=== PATIENT | male | born 1965 | race Caucasian/White ===

== ENCOUNTER 2017-03-10 08:37 | Emergency (ER) | payer OTHER ==
[~2017-03-10] VITALS: Ht 180.3 cm; Wt 63.5 kg
[~2017-03-10 08:37] MED LIST: PROZ10CA7 PO; no home meds
[2017-03-10] MEDS ORDERED: CYCL10TA (09:01)
[2017-03-10] MEDS ORDERED: NAPR500T2 (09:01)
[2017-03-10] MEDS ORDERED: ROBA500T PO (10:18)
[2017-03-10] MEDS ORDERED: IBUP80TA PO (10:18)
[2017-03-10] MEDS ORDERED: NORCOTAB PO (10:18)
[2017-03-10 10:22] VITALS: BP 113/68
== END 2017-03-10 10:31 | disposition home or self-care (01) ==
LOC: M ED 09:46
DX: M54.41 Lumbago with sciatica, right side (principal); G89.11 Acute pain due to trauma; F32.9 Major depressive disorder, single episode, unspecified; R51 Headache; M19.90 Unspecified osteoarthritis, unspecified site; Z88.1 Allergy status to other antibiotic agents; Z88.8 Allergy status to other drugs, medicaments and biological substances

== ENCOUNTER 2017-12-15 11:23 | Emergency (ER) | payer OTHER ==
[2017-12-15 12:33] LABS: HEMATOCRIT 47.2 % (42.0-52.0); HEMOGLOBIN 16.2 g/dl (14.0-18.0); MEAN CORPUSCULAR HEMOGLOBIN 32.4 pg (27.0-33.0); MEAN CORPUSCULAR HGB CONC 34.3 g/dl (32.0-36.5); MEAN CORPUSCULAR VOLUME 94.4 fl (80.0-96.0); PLATELET COUNT, AUTOMATED 132 10^3/uL (150-450); WHITE BLOOD COUNT 8.7 10^3/uL (4.0-10.0)
[2017-12-15 12:42] LABS: ANION GAP 5 MEQ/L (8-16); BLOOD UREA NITROGEN 8 MG/DL (7-18); CARBON DIOXIDE LEVEL 28 MEQ/L (21-32); CHLORIDE LEVEL 106 MEQ/L (98-107); CREATININE FOR GFR 0.84 MG/DL (0.70-1.30); GLOMERULAR FILTRATION RATE > 60.0 (>56); GLUCOSE, FASTING 93 MG/DL (70-100); POTASSIUM SERUM 4.4 MEQ/L (3.5-5.1); SODIUM LEVEL 139 MEQ/L (136-145)
[2017-12-15] MEDS: KETOROLAC 30 MG/ML VIAL (J1885) IV (12:45)
== END 2017-12-15 15:52 | disposition home or self-care (01) ==
LOC: M ED 11:23
DX: S86.811A Strain of other muscle(s) and tendon(s) at lower leg level, right leg, initial encounter (principal); X58.XXXA Exposure to other specified factors, initial encounter; Y92.89 Other specified places as the place of occurrence of the external cause; J45.909 Unspecified asthma, uncomplicated; F17.210 Nicotine dependence, cigarettes, uncomplicated; Z88.0 Allergy status to penicillin; Z88.1 Allergy status to other antibiotic agents
CPT/HCPCS: J1885

== ENCOUNTER → 2018-01-11 | Outpatient (REF) | payer OTHER, MEDICAID ==
[2018-01-11 13:50] LABS: TOTAL 25(OH) VITAMIN D 12.8 NG/ML (30.0-100.0)
[2018-01-11 13:54] LABS: FREE T4 0.97 NG/DL (0.76-1.46)
[2018-01-11 14:30] LABS: HIV 1&2 SCREEN CENTAUR NEGATIVE (NEGATIVE)
[2018-01-15 00:06] LABS: HCV RNA NAA QUALITATIVE Negative (Negative)
== END ==
LOC: M SFHCPLAZ 11:16
DX: Z13.29 Encounter for screening for other suspected endocrine disorder (principal); Z12.5 Encounter for screening for malignant neoplasm of prostate; Z11.59 Encounter for screening for other viral diseases; Z11.4 Encounter for screening for human immunodeficiency virus [HIV]; Z13.21 Encounter for screening for nutritional disorder

== ENCOUNTER 2018-01-23 10:04 | Outpatient (RCR) | payer OTHER | END 2018-02-09 | LOC: M PT 10:04 | DX: Z51.89 Encounter for other specified aftercare (principal); M76.32 Iliotibial band syndrome, left leg ==

== ENCOUNTER 2018-05-07 20:28 | Emergency (ER) | payer OTHER, MEDICAID ==
[2018-05-07] MEDS ORDERED: CLINDAMYCIN 150 MG CAP PO (21:45)
[2018-05-07] MEDS: IBUPROFEN 600 MG TAB PO (21:52)
[2018-05-07] MEDS: predniSONE 20 MG TAB PO (21:52)
== END 2018-05-07 22:13 | disposition home or self-care (01) ==
LOC: M ED 20:28
DX: L03.012 Cellulitis of left finger (principal); G43.909 Migraine, unspecified, not intractable, without status migrainosus; M54.9 Dorsalgia, unspecified; F17.200 Nicotine dependence, unspecified, uncomplicated; Z88.0 Allergy status to penicillin; Z88.1 Allergy status to other antibiotic agents
CPT/HCPCS: 99283

== ENCOUNTER → 2018-11-22 | Outpatient (REF) | payer MEDICAID, OTHER ==
[~2018-11-22] MED LIST changes: +CYCL10TA; +IBUP80TA PO; +NAPR-50 PO; +NAPR-885; +NORCOTAB PO; +PRED20TA PO; +ROBA500T PO; +ROLLMIS2 XX; +SOMA350T PO
[2018-11-22 14:54] LABS: HIV 1&2 SCREEN CENTAUR NEGATIVE (NEGATIVE); TOTAL 25(OH) VITAMIN D 25.5 NG/ML (30.0-100.0)
== END ==
LOC: M SFHCPLAZ 10:54
PROVIDERS: ATTEND Family Medicine
DX: Z11.4 Encounter for screening for human immunodeficiency virus [HIV] (principal); Z13.21 Encounter for screening for nutritional disorder

== ENCOUNTER → 2019-04-21 | Outpatient (CLI) | payer OTHER ==
[~2019-04-21] MED LIST changes: +HYDR-3715 PO; -NAPR-50 PO; +NAPR-837 PO; -NORCOTAB PO
--- NOTE | 2019-04-21 13:15 | REP ---
ABDOMINAL SERIES: Supine and erect views of the abdomen demonstrate no free air and no evidence for bowel obstruction. No significantly dilated bowel loops are seen. Vascular calcifications and a small phlebolith are again seen in the right pelvis. There are mild degenerative changes of the spine. IMPRESSION: No acute abnormalities. Electronically Signed by Jerzy Morris MD 04/22/2019 11:35 A
== END ==
LOC: M RAD 12:36
PROVIDERS: ATTEND Physician Assistant
DX: R10.9 Unspecified abdominal pain (principal)

== ENCOUNTER → 2019-10-03 | Outpatient (CLI) | payer OTHER ==
[2019-10-03 12:39] LABS: BASO % 0.7 % (0.0-1.0); EOS # 0.2 10^3/uL (0.0-0.5); EOS % 3.5 % (0.0-3.0); HEMATOCRIT 43.7 % (42.0-52.0); HEMOGLOBIN 14.5 g/dl (13.5-17.5); LYMPH # 2.3 10^3/uL (1.5-5.0); LYMPH % 40.1 % (24.0-44.0); MEAN CORPUSCULAR HEMOGLOBIN 31.5 pg (27.0-33.0); MEAN CORPUSCULAR HGB CONC 33.2 g/dl (32.0-36.5); MEAN CORPUSCULAR VOLUME 94.8 fl (80.0-96.0); MONO # 0.5 10^3/uL (0.0-0.8); MONO % 9.3 % (0.0-5.0); NEUTROPHILS # 2.6 10^3/uL (1.5-8.5); NEUTROPHILS % 46.2 % (36.0-66.0); PLATELET COUNT, AUTOMATED 125 10^3/uL (150-450); RED BLOOD COUNT 4.61 10^6/uL (4.30-6.10); WHITE BLOOD COUNT 5.7 10^3/uL (4.0-10.0)
[2019-10-03 13:12] LABS: ALT/SGPT 28 U/L (12-78); BILIRUBIN,TOTAL 0.4 MG/DL (0.2-1.0); BLOOD UREA NITROGEN 11 MG/DL (7-18); CALCIUM LEVEL 9.7 MG/DL (8.5-10.1); CARBON DIOXIDE LEVEL 31 MEQ/L (21-32); CHLORIDE LEVEL 105 MEQ/L (98-107); CHOLESTEROL LEVEL 258 MG/DL (<200); CHOLESTEROL RISK RATIO 4.607 (<5); CREATININE FOR GFR 0.94 MG/DL (0.70-1.30); FREE T4 1.03 NG/DL (0.76-1.46); GLOMERULAR FILTRATION RATE > 60.0 (>56); GLUCOSE, FASTING 94 MG/DL (70-100); HDL CHOLESTEROL 56 MG/DL (>40); LDL CHOLESTEROL 173 MG/DL (<100); NON-HDL-C 202 MG/DL; POTASSIUM SERUM 4.7 MEQ/L (3.5-5.1); SODIUM LEVEL 140 MEQ/L (136-145); TOTAL PROTEIN 6.9 GM/DL (6.4-8.2); TRIGLYCERIDES LEVEL 146 MG/DL (<150)
[2019-10-03 13:53] LABS: HIV 1&2 SCREEN CENTAUR NEGATIVE (NEGATIVE)
== END ==
LOC: M WUC 10:12
PROVIDERS: ATTEND Internal Medicine
DX: Z00.00 Encounter for general adult medical examination without abnormal findings (principal)

== ENCOUNTER → 2019-12-12 | Outpatient (REF) | payer OTHER ==
[2019-12-12 15:51] LABS: BASO % 0.5 % (0.0-1.0); EOS # 0.1 10^3/uL (0.0-0.5); EOS % 2.2 % (0.0-3.0); HEMATOCRIT 43.5 % (42.0-52.0); HEMOGLOBIN 14.5 g/dl (13.5-17.5); LYMPH # 2.1 10^3/uL (1.5-5.0); LYMPH % 33.1 % (24.0-44.0); MEAN CORPUSCULAR HEMOGLOBIN 30.7 pg (27.0-33.0); MEAN CORPUSCULAR HGB CONC 33.3 g/dl (32.0-36.5); MEAN CORPUSCULAR VOLUME 92.2 fl (80.0-96.0); MONO # 0.5 10^3/uL (0.0-0.8); MONO % 7.8 % (0.0-5.0); NEUTROPHILS # 3.5 10^3/uL (1.5-8.5); NEUTROPHILS % 55.9 % (36.0-66.0); PLATELET COUNT, AUTOMATED 130 10^3/uL (150-450); RED BLOOD COUNT 4.72 10^6/uL (4.30-6.10); WHITE BLOOD COUNT 6.3 10^3/uL (4.0-10.0)
[2019-12-16 00:06] LABS: ANTINUCLEAR ANTIBODIES DIRECT Negative (Negative)
== END ==
LOC: M SFHCPLAZ 14:09
DX: Z87.898 Personal history of other specified conditions (principal); M25.511 Pain in right shoulder

== ENCOUNTER → 2019-12-31 | Outpatient (REF) | payer OTHER ==
[2019-12-31 13:36] LABS: INFLUENZA A AMPLIFICATION NEGATIVE (NEGATIVE); INFLUENZA B AMPLIFICATION NEGATIVE (NEGATIVE)
== END ==
LOC: M LAB REF 12:30
PROVIDERS: ATTEND Physician Assistant
DX: J11.1 Influenza due to unidentified influenza virus with other respiratory manifestations (principal)

== ENCOUNTER 2020-08-25 13:43 | Emergency (ER) | payer OTHER ==
[~2020-08-25] VITALS: Ht 180.3 cm; Wt 76.5 kg
[~2020-08-25 13:43] MED LIST changes: +CYCL-707; -CYCL10TA
[2020-08-25 13:44] VITALS: BP 152/81
== END 2020-08-25 14:33 | disposition home or self-care (01) ==
LOC: M ED 13:43
DX: K08.89 Other specified disorders of teeth and supporting structures (principal); S01.512A Laceration without foreign body of oral cavity, initial encounter; W22.8XXA Striking against or struck by other objects, initial encounter; Y92.512 Supermarket, store or market as the place of occurrence of the external cause; K02.9 Dental caries, unspecified; Z88.0 Allergy status to penicillin; Z88.1 Allergy status to other antibiotic agents

== ENCOUNTER → 2021-02-18 | Outpatient (CLI) | payer OTHER ==
[2021-02-18 11:23] LABS: HEMOGLOBIN A1c 5.2 %
[2021-02-18 11:31] LABS: ALT/SGPT 28 U/L (12-78); BILIRUBIN,TOTAL 0.5 MG/DL (0.2-1.0); BLOOD UREA NITROGEN 12 MG/DL (7-18); CALCIUM LEVEL 9.1 MG/DL (8.5-10.1); CARBON DIOXIDE LEVEL 29 MEQ/L (21-32); CHLORIDE LEVEL 107 MEQ/L (98-107); CHOLESTEROL LEVEL 233 MG/DL (<200); CHOLESTEROL RISK RATIO 4.314 (<5); CREATININE FOR GFR 0.85 MG/DL (0.70-1.30); GLOMERULAR FILTRATION RATE > 60.0 (>56); GLUCOSE, FASTING 97 MG/DL (70-100); HDL CHOLESTEROL 54 MG/DL (>40); LDL CHOLESTEROL 154 MG/DL (<100); NON-HDL-C 179 MG/DL; POTASSIUM SERUM 4.2 MEQ/L (3.5-5.1); SODIUM LEVEL 140 MEQ/L (136-145); TOTAL PROTEIN 6.8 GM/DL (6.4-8.2); TRIGLYCERIDES LEVEL 125 MG/DL (<150)
[2021-02-19 20:07] LABS: TESTOSTERONE FREE (DIRECT) 11.8 pg/mL (7.2-24.0)
== END ==
LOC: M WUC 09:17
PROVIDERS: ATTEND Internal Medicine
DX: Z00.00 Encounter for general adult medical examination without abnormal findings (principal); R79.89 Other specified abnormal findings of blood chemistry

== ENCOUNTER → 2021-03-11 | Outpatient (REF) | payer OTHER | LOC: M LAB REF 15:00 | PROVIDERS: ATTEND Physician Assistant | DX: R21 Rash and other nonspecific skin eruption (principal) ==

== ENCOUNTER → 2021-04-26 | Outpatient (CLI) | payer OTHER ==
--- NOTE | 2021-04-27 02:20 | REPPI ---
INDICATION: OSTEOARTHRITIS OF RIGHT SHOULDER COMPARISON: None. TECHNIQUE: Internal rotation, external rotation, and Y view. FINDINGS: Glenoid rim demonstrates subtle increased sclerosis with mild blunting primarily noted along the inferior rim. There is associated cortical irregularity involving the humeral head with suggestions for small inferior loose body. The subacromial space is normal. The acromioclavicular joint demonstrates minimal cortical irregularity and very early spurring. IMPRESSION: Moderate osteoarthritic degenerative changes primarily involving the glenohumeral joint. <Electronically signed by Mynor Schmitz > 04/27/21 3020
== END ==
LOC: M PLAIMG 12:45
PROVIDERS: ATTEND Internal Medicine
DX: M19.011 Primary osteoarthritis, right shoulder (principal)

== ENCOUNTER → 2021-07-13 | Outpatient (REF) | payer OTHER ==
[~2021-07-13] MED LIST changes: +KETO10TAB PO
== END ==
LOC: M SMT 17:44
PROVIDERS: ATTEND Urology
DX: N50.9 Disorder of male genital organs, unspecified (principal)

== ENCOUNTER 2021-08-26 11:44 | Emergency (ER) | payer OTHER ==
[~2021-08-26] VITALS: Ht 180.3 cm; Wt 74.8 kg
[~2021-08-26 11:44] MED LIST changes: -KETO10TAB PO
--- OUTSIDE RECORDS SUMMARY | 2021-08-26 11:51 | CCD ---
Author Author [facility] Organization [facility] Address Unknown Phone Unavailable Care Team Providers Care Railcar Brake Operator Name Role Phone Omar Montes De Oca Unavailable PROBLEMS Type Condition ICD9-CM Code [id number] Code Onset Dates Condition S tatus W/U Status Risk SNOMED Code Notes Problem Cigarette nicotine dependence with nicotine-induced di sorder F17.219 Active confirmed 42408019 Problem Adjustment disorder with anxiety F43.22 Active conf irmed 09630583 Problem Major depressive disorder, single episode, unspecified F32.9 Active confirmed 33273394 Problem Cigarette nicotine dependence without complication F17.210 Active confirmed 86648670 Problem Adjustment disorder, unspecified type F43.20 Ac tive confirmed 85972721 Problem Cigarette nicotine dependence with withdrawal F17. 213 Active confirmed 53761923 Problem Vitamin D deficiency E55.9 Active confirmed 30621605 Problem Current moderate episode of major depressive disorder, unspecified whether recurrent F32.1 Active confirmed 43119026 Problem Other chronic pain G89.29 Active confirmed 8 2310191 Problem Erectile dysfunction, unspecified erectile dysfunction typ e N52.9 Active confirmed 402465031 Problem Atopic dermatitis and related condition L20.9 Active confirmed 14944466 Problem Generalized anxiety disorder F41.1 Active confirme d 14929818 Problem Scrotal lesion N50.9 Active confirmed 53869 000 Problem Adjustment disorder with anxious mood F43.22 Ac tive confirmed 99161722 Problem Mood disorder F39 Active confirmed 156872 05 Problem Bipolar I disorder with depression F31.9 Activ e confirmed 98431644 Problem Primary osteoarthritis, 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 Ac tive confirmed 054522571112672 Problem Primary osteoarthritis, right shoulder M19.011 A ctive confirmed [id number] ALLERGIES Allergen (clinical drug ingredient) Drug/Non Drug Allergy do cumented on EMR Reaction Allergy Type Onset Date Status Levaquin Confusion Drug Allergy Active Vicodin over dosed on before Drug Allergy Ac tive amoxicillin Amoxicillin([facility] Code:[address]-09) Nausea/Vomiting Drug Allergy Active ENCOUNTERS from 1965 to 2021-07-15 Encounter Location Date Provider Diagnosis [facility] Urology [address] [phone] [place] [address] Jul, Omar Montes De Oca Scrotal lesion N50.9 IMMUNIZATIONS Vaccine Route Administration Date Status TDAP 0.5mL (Boostrix) IM Intramuscular Nov 22, 2018 Administe red SOCIAL HISTORY Tobacco Use: Social History Observation Description Date Details (start date - stop date) Former Smoker Sex Assigned At : Social History Observation Description Sex Assigned At Unknown Education: Question Answer Notes Level of Education: High School Audit Question Answer Notes Total Score: 0 Interpretation: Alcohol Education Language: Question Answer Notes Languages spoken: Tajik Sabianism: Question Answer Notes Sabianism No zoroastrian beliefs that would impact health care. Sexual Hx: Question Answer Notes Had sex in the last 12 months (vaginal, oral, or anal)? No Have you ever had an STD? No Drug and Alcohol Question Answer Notes Total Score: 0 Interpretation: No problems reported Alcohol Screening: Question Answer Notes Did you have a drink containing alcohol in the past year? No Points 0 Interpretation Negative Tobacco Use: Question Answer Notes Are you a: former smoker How long has it been since you last smoked? 1-5 years REASON FOR REFERRAL No Information VITAL SIGNS Weight 167 lbs Jul, Weight-kg 75.75 kg Jul, Height 71 in Jul, BMI 23.29 kg/m2 Jul, Heart Rate 75 /min Jul, Respiratory Rate 18 /min Jul, Temperature 96.9 degrees Fahrenheit Jul, Oximetry 100 Jul, Blood pressure systolic 142 mm Hg Jul, Blood pressure diastolic 78 mm Hg Jul, MEDICATIONS Medication SIG (Take, Route, Frequency, Duration) Notes Start Da te End Date Status Multivitamin Adult - as directed Orally Once a day for 90 day(s) Not-Taking Betamethasone Dipropionate 0.05 % 1 application Flight Service Specialist ally Once a day for 30 days March, Not-Taking Meloxicam 15 MG 1 tablet Orally Once a day a s needed for shoulder pain for 7 day(s) March, Not-Taking Betamethasone Dipropionate 0.05 % 1 application Flight Service Specialist ally Mix entire 50g tube into 1/2 jar of CeraVe cream, Apply twice daily for 14 days 30 A , 2020 Not-Taking PROCEDURES from 1965 to 2021-07-15 Procedure Date Ordered Result Body Site Medication: Bupivacaine 0.25% Dilutent 30ml (Marcaine) 1 N/A Medication: 2% Lidocaine Dilutent 2021-07-13 N/A RESULTS No Results REASON FOR VISIT scrotal cyst MEDICAL (GENERAL) HISTORY Type Description Date Medical History Major depressive disorder Medical History Schizoaffective disorder Medical History History of opioid abuse Medical History Bilateral shoulder OA Medical History Eczematous dermatitis of skin (follows w [facility] dermatology) Surgical History R knee surgery orthoscopoc Surgical History L wrist tendon repair Surgical History R inguinal hernia repair 2017 Goals Section No Information Health Concerns No Information MEDICAL EQUIPMENT No Information MENTAL STATUS No Information FUNCTIONAL STATUS No Information ASSESSMENTS Encounter Date Diagnosis Assessment Notes Treatment Notes Treatm ent Clinical Notes Jul, Scrotal lesion (ICD-10 - N50.9) PLAN OF TREATMENT Treatment Notes Test Name Order Date Pathology Request For Service (Urology Only) 1 Next Appt Details 3-4 wks Reason:wound check Provider Name:Brandy Neri, 2021-07-14 9 01:45:00 PM, [address], , [place], [address], Follow Up:3-4 wkswound check Insurance Providers Payer Name Payer Address Payer Phone Insured Name Patient Relati onship to Insured Coverage Start Date Coverage End Date [facility] COMMUNITY PLAN [facility] [address] [facility] [phone] TRIN[employer] MEJIA self
--- OUTSIDE RECORDS SUMMARY | 2021-08-26 11:51 | CCD ---
Author Author [facility] Organization [facility] Address Unknown Phone Unavailable Care Team Providers Care Administrative Intern Name Role Phone Domingo Barba Unavailable PROBLEMS Type Condition ICD9-CM Code [id number] Code Onset Dates Condition S tatus W/U Status Risk SNOMED Code Notes Problem Major depressive disorder, single episode, unspecified F32.9 Active confirmed 04313032 Problem Cigarette nicotine dependence with nicotine-induced di sorder F17.219 Active confirmed 73685785 Problem Adjustment disorder, unspecified type F43.20 Ac tive confirmed 12028773 Problem Adjustment disorder with anxiety F43.22 Active conf irmed 09604743 Problem Vitamin D deficiency E55.9 Active confirmed 01065386 Problem Cigarette nicotine dependence without complication F17.210 Active confirmed 05644007 Problem Cigarette nicotine dependence with withdrawal F17. 213 Active confirmed 29713391 Problem Current moderate episode of major depressive disorder, unspecified whether recurrent F32.1 Active confirmed 56733419 Problem Other chronic pain G89.29 Active confirmed 8 3318115 Problem Primary osteoarthritis, right shoulder M19.011 A ctive confirmed 486282895376264 Problem Adjustment disorder with anxious mood F43.22 Ac tive confirmed 48258252 Problem Atopic dermatitis and related condition L20.9 Active confirmed 84616590 Problem Generalized anxiety disorder F41.1 Active confirme d 34585625 Problem Erectile dysfunction, unspecified erectile dysfunction typ e N52.9 Active confirmed 163898659 Problem Mood disorder F39 Active confirmed 126716 05 Problem Bipolar I disorder with depression F31.9 Activ e confirmed 96822121 Problem Primary osteoarthritis, 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 Ac tive confirmed [id number] ALLERGIES Allergen (clinical drug ingredient) Drug/Non Drug Allergy do cumented on EMR Reaction Allergy Type Onset Date Status Levaquin Confusion Drug Allergy Active Vicodin over dosed on before Drug Allergy Ac tive amoxicillin Amoxicillin([facility] Code:[address]-04) Nausea/Vomiting Drug Allergy Active ENCOUNTERS from 1965 to 2021-06-08 Encounter Location Date Provider Diagnosis [facility] Res[facility] [address] [phone] [place] [address] May, Domingo Barba Pain in right should er M25.511 ; Pain in left shoulder M25.512 and Discomfort of right groin R10.31 IMMUNIZATIONS Vaccine Route Administration Date Status TDAP 0.5mL (Boostrix) IM Intramuscular Nov 22, 2018 Administe red SOCIAL HISTORY Tobacco Use: Social History Observation Description Date Details (start date - stop date) Former Smoker Sex Assigned At : Social History Observation Description Sex Assigned At Unknown Education: Question Answer Notes Level of Education: High School Audit Question Answer Notes Interpretation: Alcohol Education Total Score: 0 Language: Question Answer Notes Languages spoken: Chadian Oriental Orthodox: Question Answer Notes Oriental Orthodox No spiritism beliefs that would impact health care. Sexual [...] FOR REFERRAL No Information VITAL SIGNS Weight 162.6 lbs May, Height 71 in May, BMI 22.68 kg/m2 May, Heart Rate 104 /min May, Respiratory Rate 18 /min May, Temperature 98.0 degrees Fahrenheit May, Oximetry 99 May, Blood pressure systolic 120 mm Hg May, Blood pressure diastolic 66 mm Hg May, MEDICATIONS Medication SIG (Take, Route, Frequency, Duration) Notes Start Da te End Date Status Betamethasone Dipropionate 0.05 % 1 application Inspector Line ally Once a day for 30 days March, Not-Taking Multivitamin Adult - as directed Orally Once a day for 90 day(s) Not-Taking Betamethasone Dipropionate 0.05 % 1 application Inspector Line ally Mix entire 50g tube into 1/2 jar of CeraVe cream, Apply twice daily for 14 days 30 A 2020 Not-Taking Meloxicam 15 MG 1 tablet Orally Once a day a s needed for shoulder pain for 7 day(s) March, Not-Taking PROCEDURES No Information RESULTS No Results REASON FOR VISIT 6 week follow up shoulder pain MEDICAL (GENERAL) HISTORY Type Description Date Medical History Major depressive disorder Medical History Schizoaffective disorder Medical History History of opioid abuse Medical History Bilateral shoulder OA Medical History Eczematous dermatitis of skin (follows w [facility] dermatology) Surgical History R knee surgery orthoscopoc Surgical History L wrist tendon repair Surgical History R inguinal hernia repair 2016 Goals Section No Information Health Concerns No Information MEDICAL EQUIPMENT No Information MENTAL STATUS No Information FUNCTIONAL STATUS No Information ASSESSMENTS Encounter Date Diagnosis Assessment Notes Treatment Notes Treatm ent Clinical Notes May, Pain in right shoulder (ICD-10 - M25.511) Pain resolved. ROM wnl May, Pain in left shoulder (ICD-10 - M25.512) Pain resolved. normal ROM May, Discomfort of right groin (ICD-10 - R10.31) Pt has a hx of a inguinal hernia on R side with Mesh placement. Pt states that he does not have any pain nausea, vomiting, fever, no hernia bulge that turns red or purple color. he's having regular BMs and able to pass faltus. He lifits 160Lbs at the gym and feels pressure in the inguinal region when he does. He is not bothered by it on a daily basis. No signs of strangulation on exam have discussed with patient the red flag symptoms of strangulation such as acute abdominal pain that comes on suddenly, nausea, vomiting, bloody stools, fever, inability to pass flatus. If any of those smyptoms or more to report to ER. PLAN OF TREATMENT Treatment Notes Assessment Notes Clinical Notes Pain in right shoulder Pain resolved. RO M wnl Pain in left shoulder Pain resolved. nor mal ROM Discomfort of right groin Pt has a hx of a inguinal hernia on R side with Mesh placement. Pt states that he does not have any pain nausea, vomiting, fever, no hernia bulge that turns red or purple color. he's having regular BMs and able to pass faltus. He lifits 160Lbs at the gym and feels pressure in the inguinal region when he does. He is not bothered by it on a daily basis. No signs of strangulation on examhave discussed with patient the red flag symptoms of strangulation such as acute abdominal pain that comes on suddenly, nausea, vomiting, bloody stools, fever, inability to pass flatus. If any of those smyptoms or more to report to ER. Next Appt Details 6 Months Reason: Provider Name:Brandy Neri, 2021-05-14 0 08:30:00 AM, [address], , [place], [address], Insurance Providers Payer Name Payer Address Payer Phone Insured Name Patient Relati onship to Insured Coverage Start Date Coverage End Date [facility] COMMUN[facility] PLAN [facility] [address] [facility] [address] TRINITY MEJIA self
--- OUTSIDE RECORDS SUMMARY | 2021-08-26 11:51 | CCD ---
Author Author [facility] [employer] [facility] Organization [facility] Address Unknown Phone Unavailable Care Team Providers Care [employer] Name Role Phone Brandy Neri Unavailable PROBLEMS Type Condition ICD9-CM Code EVK84-MR Code Onset Dates Condition S tatus W/U Status Risk SNOMED Code Notes Problem Major depressive disorder, single episode, unspecified F32.9 Active confirmed 56392520 Problem Cigarette nicotine dependence with nicotine-induced di sorder F17.219 Active confirmed 81360722 Problem Adjustment disorder, unspecified type F43.20 Ac tive confirmed 83372408 Problem Adjustment disorder with anxiety F43.22 Active conf irmed 14831035 Problem Vitamin D deficiency E55.9 Active confirmed 53109528 Problem Cigarette nicotine dependence without complication F17.210 Active confirmed 79072101 Problem Cigarette nicotine dependence with withdrawal F17. 213 Active confirmed 18957347 Problem Current moderate episode of major depressive disorder, unspecified whether recurrent F32.1 Active confirmed 65850364 Problem Other chronic pain G89.29 Active confirmed 8 0219347 Problem Primary osteoarthritis, right shoulder M19.011 A ctive confirmed 988660417643166 Problem Adjustment disorder with anxious mood F43.22 Ac tive confirmed 57166962 Problem Atopic dermatitis and related condition L20.9 Active confirmed 46686076 Problem Generalized anxiety disorder F41.1 Active confirme d 83298222 Problem Erectile dysfunction, unspecified erectile dysfunction typ e N52.9 Active confirmed 330511119 Problem Mood disorder F39 Active confirmed 665886 05 Problem Bipolar I disorder with depression F31.9 Activ e confirmed 46610469 Problem Primary osteoarthritis, 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 Ac tive confirmed 771456539028289 ALLERGIES Allergen (clinical drug ingredient) Drug/Non Drug Allergy do cumented on EMR Reaction Allergy Type Onset Date Status Levaquin Confusion Drug Allergy Active Vicodin over dosed on before Drug Allergy Ac tive amoxicillin Amoxicillin([facility] Code:[address]-98) Nausea/Vomiting Drug Allergy Active ENCOUNTERS from 1965 to 2021-06-13 Encounter Location Date Provider Diagnosis [facility] Urology [address] [phone] [place] [address] May, Brandy Neri Scrotal cyst L72.9 IMMUNIZATIONS Vaccine Route Administration Date Status TDAP [...] Education Language: Question Answer Notes Languages spoken: Italian Sabianist: Question Answer Notes Sabianist No mandaeism beliefs that would impact health care. Sexual [...] No Information VITAL SIGNS Weight 167 lbs May, Weight-kg 75.75 kg May, Height 71 in May, BMI 23.29 kg/m2 May, Heart Rate 71 /min May, Respiratory Rate 18 /min May, Temperature 96.8 degrees Fahrenheit May, Oximetry 100 May, Blood pressure systolic 133 mm Hg May, Blood pressure diastolic 82 mm Hg May, MEDICATIONS Medication SIG (Take, Route, Frequency, Duration) Notes Start Da te End Date Status Betamethasone Dipropionate 0.05 % 1 application Pe Electrical Engineer ally Once a day for 30 days March, Not-Taking Betamethasone Dipropionate 0.05 % 1 application Pe Electrical Engineer ally Mix entire 50g tube into 1/2 jar of CeraVe cream, Apply twice daily for 14 days 30 A 2020 Not-Taking Multivitamin Adult - as directed Orally Once a day for 90 day(s) Not-Taking Meloxicam 15 MG 1 tablet Orally Once a day a s needed for shoulder pain for 7 day(s) March, Not-Taking PROCEDURES No Information RESULTS No Results REASON FOR VISIT Pt has several areas of skin thickening on his scrotum, wishes to have MEDICAL (GENERAL) HISTORY Type Description Date Medical History Major depressive disorder Medical History Schizoaffective disorder Medical History History of opioid abuse Medical History Bilateral shoulder OA Medical History Eczematous dermatitis of skin (follows w [facility] dermatology) Surgical History R knee surgery orthoscopoc Surgical History L wrist tendon repair Surgical History R inguinal hernia repair 2017 Goals Section No Information Health Concerns No Information MEDICAL EQUIPMENT No Information MENTAL STATUS No Information FUNCTIONAL STATUS No Information ASSESSMENTS Encounter Date Diagnosis Assessment Notes Treatment Notes Treatm ent Clinical Notes May, Scrotal cyst (ICD-10 - L72.9) PLAN OF TREATMENT Next Appt Details Provider Name:Omar Montes De Oca, 08:15:00 AM, [address], , [place], [address], Insurance Providers Payer Name Payer Address Payer Phone Insured Name Patient Relati onship to Insured Coverage Start Date Coverage End Date [facility] COMMUNITY PLAN [facility] [address] [facility] [address] TRINITY MEJIA self
--- OUTSIDE RECORDS SUMMARY | 2021-08-26 11:51 | CCD ---
Author Author [facility] Organization [facility] Address Unknown Phone Unavailable Care Team Providers Care Singe Winder Name Role Phone Domingo Barba Unavailable PROBLEMS Type Condition ICD9-CM Code ZUN00-FW Code Onset Dates Condition S tatus W/U Status Risk SNOMED Code Notes Problem Cigarette nicotine dependence with nicotine-induced di sorder F17.219 Active confirmed 13948073 Problem Adjustment disorder with anxiety F43.22 Active conf irmed 73797884 Problem Major depressive disorder, single episode, unspecified F32.9 Active confirmed 72288291 Problem Cigarette nicotine dependence without complication F17.210 Active confirmed 33839300 Problem Adjustment disorder, unspecified type F43.20 Ac tive confirmed 67614447 Problem Cigarette nicotine dependence with withdrawal F17. 213 Active confirmed 27814000 Problem Vitamin D deficiency E55.9 Active confirmed 79966921 Problem Current moderate episode of major depressive disorder, unspecified whether recurrent F32.1 Active confirmed 39900507 Problem Other chronic pain G89.29 Active confirmed 8 9243923 Problem Erectile dysfunction, unspecified erectile dysfunction typ e N52.9 Active confirmed 672722303 Problem Atopic dermatitis and related condition L20.9 Active confirmed 53652451 Problem Generalized anxiety disorder F41.1 Active confirme d 91398171 Problem Scrotal lesion N50.9 Active confirmed 29551 000 Problem Adjustment disorder with anxious mood F43.22 Ac tive confirmed 63630089 Problem Mood disorder F39 Active confirmed 299822 05 Problem Bipolar I disorder with depression F31.9 Activ e confirmed 56070753 Problem Primary osteoarthritis, 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 Ac tive confirmed 978126072301882 Problem Primary osteoarthritis, right shoulder M19.011 A ctive confirmed 289453679931361 ALLERGIES Allergen (clinical drug ingredient) Drug/Non Drug Allergy do cumented on EMR Reaction Allergy Type Onset Date Status Levaquin Confusion Drug Allergy Active Vicodin over dosed on before Drug Allergy Ac tive amoxicillin Amoxicillin([facility] Code:[address]-84) Nausea/Vomiting Drug Allergy Active ENCOUNTERS from 1965 to 2021-08-04 Encounter Location Date Provider Diagnosis [facility] Urology [address] [phone] [place] [address] Jul, 2021 Domingo Barba IMMUNIZATIONS Vaccine Route Administration Date Status TDAP [...] Education Language: Question Answer Notes Languages spoken: Kyrgyz Quaker: Question Answer Notes Quaker No restorationism beliefs that would impact health care. Sexual [...] REASON FOR REFERRAL No Information VITAL SIGNS No information MEDICATIONS Medication SIG (Take, Route, Frequency, Duration) Notes Start Da te End Date Status Multivitamin Adult - as directed Orally Once a day for 90 day(s) Not-Taking Betamethasone Dipropionate 0.05 % 1 application Director Of Research And Development ally Once a day for 30 days March, Not-Taking Meloxicam 15 MG 1 tablet Orally Once a day a s needed for shoulder pain for 7 day(s) March, Not-Taking Betamethasone Dipropionate 0.05 % 1 application Director Of Research And Development ally Mix entire 50g tube into 1/2 jar of CeraVe cream, Apply twice daily for 14 days A 2020 Not-Taking PROCEDURES No Information RESULTS No Results REASON FOR VISIT No Information MEDICAL (GENERAL) HISTORY Type Description Date Medical History Major depressive disorder Medical History Schizoaffective disorder Medical History History of opioid abuse Medical History Bilateral shoulder OA Medical History Eczematous dermatitis of skin (follows w [facility] dermatology) Surgical History R knee surgery orthoscopoc Surgical History L wrist tendon repair Surgical History R inguinal hernia repair 2017 Goals Section No Information Health Concerns No Information MEDICAL EQUIPMENT No Information MENTAL STATUS No Information FUNCTIONAL STATUS No Information ASSESSMENTS No Information PLAN OF TREATMENT Next Appt Details Provider Name:Brandy Trevino Halle, 2021-07-14 9 01:45:00 PM, [address] , , [place], [address], Insurance Providers Payer Name Payer Address Payer Phone Insured Name Patient Relati onship to Insured Coverage Start Date Coverage End Date [facility] COMMUN[facility] PLAN [facility] [address] [facility] [address] TRINITY MEJIA self
--- OUTSIDE RECORDS SUMMARY | 2021-08-26 11:51 | CCD ---
Author Author [facility] Organization [facility] Address Unknown Phone Unavailable Care Team Providers Care Floral Artist Name Role Phone Brandy Neri Unavailable PROBLEMS Type Condition ICD9-CM Code [id number] Code Onset Dates Condition S tatus W/U Status Risk SNOMED Code Notes Problem Adjustment disorder with anxiety F43.22 Active conf irmed 18840163 Problem Major depressive disorder, single episode, unspecified F32.9 Active confirmed 88508581 Problem Cigarette nicotine dependence without complication F17.210 Active confirmed 58896910 Problem Adjustment disorder, unspecified type F43.20 Ac tive confirmed 95614616 Problem Adjustment disorder with anxious mood F43.22 Ac tive confirmed 18700446 Problem Vitamin D deficiency E55.9 Active confirmed 63724574 Problem Cigarette nicotine dependence with withdrawal F17. 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 Active confirmed 179327452 Problem Current moderate episode of major depressive disorder, unspecified whether recurrent F32.1 Active confirmed 63069783 Problem Cigarette nicotine dependence with nicotine-induced di sorder F17.219 Active confirmed 59162878 Problem Primary osteoarthritis, 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 Ac tive confirmed 316011361239493 Problem Primary osteoarthritis, right shoulder M19.011 A ctive confirmed 921239514751299 Problem Atopic dermatitis and related condition L20.9 Active confirmed 00447712 Problem Scrotal lesion N50.9 Active confirmed 82960 000 ALLERGIES Allergen (clinical drug ingredient) Drug/Non Drug Allergy do cumented on EMR Reaction Allergy Type Onset Date Status Levaquin Confusion Drug Allergy Active Vicodin over dosed on before Drug Allergy Ac tive amoxicillin Amoxicillin([facility] Code:[address]-55) Nausea/Vomiting Drug Allergy Active ENCOUNTERS from 1964 to 2021-08-11 Encounter Location Date Provider Diagnosis [facility] [address] [phone] [place] [address] Jul, Brandy Recore Scrotal cyst L72.9 and Erectile disorder , acquired, situational, mild F52.21 IMMUNIZATIONS Vaccine Route Administration Date Status TDAP [...] Education Language: Question Answer Notes Languages spoken: Syriac Restoration: Question Answer Notes Restoration No pentecostal beliefs that would impact health care. Sexual [...] FOR REFERRAL No Information VITAL SIGNS Weight 166 lbs Jul, Weight-kg 75.3 kg Jul, Height 71 in Jul, BMI 23.15 kg/m2 Jul, Heart Rate 78 /min Jul, Respiratory Rate 18 /min Jul, Temperature 98.4 degrees Fahrenheit Jul, Oximetry 99% Jul, Blood pressure systolic 132 mm Hg Jul, Blood pressure diastolic 82 mm Hg Jul, MEDICATIONS Medication SIG (Take, Route, Frequency, Duration) Notes Start Da te End Date Status Multivitamin Adult - as directed Orally Once a day for 90 day(s) Not-Taking Viagra 100 MG 1 tablet as needed Orally as directed for 30 day (s) Jul, Active Betamethasone Dipropionate 0.05 % 1 application [facility] [employer] [facility] Once a day for 30 days March, Not-Taking Meloxicam 15 MG 1 tablet Orally Once a day a s needed for shoulder pain for 7 day(s) March, Not-Taking Betamethasone Dipropionate 0.05 % 1 application [facility] Mix entire 50g tube into 1/2 jar of CeraVe cream, Apply twice daily for 14 days 2020 Not-Taking PROCEDURES No Information RESULTS No Results REASON FOR VISIT F/U AFTER SCROTAL CYST REMOVAL MEDICAL (GENERAL) HISTORY Type Description Date Medical History Major depressive disorder Medical History Schizoaffective disorder Medical History History of opioid abuse Medical History Bilateral shoulder OA Medical History Eczematous dermatitis of skin (follows w [facility] dermatology) Surgical History R knee surgery orthoscopoc Surgical History L wrist tendon repair Surgical History R inguinal hernia repair 2017 Surgical History cyst removal 07/2021 Goals Section No Information Health Concerns No Information MEDICAL EQUIPMENT No Information MENTAL STATUS No Information FUNCTIONAL STATUS No Information ASSESSMENTS Encounter Date Diagnosis Assessment Notes Treatment Notes Treatm ent Clinical Notes Jul, Scrotal cyst (ICD-10 - L72.9) Jul, Erectile disorder, acquired, situational, mild ( ICD-10 - F52.21) PLAN OF TREATMENT Medication Medication Name Sig Start Date Stop Date Viagra 100 MG 1 tablet as needed Orally as directed for 30 day (s) Jul, Next Appt Details Provider Name:Mulu Dash, 2021-09-06 02: 45:00 PM, [address], , [place], [address], Provider Name:Brandy Neri, 2021-09- 0 01:00:00 PM, [address], , [place], [address], Insurance Providers Payer Name Payer Address Payer Phone Insured Name Patient Relati onship to Insured Coverage Start Date Coverage End Date [facility] PLAN [facility] [address] [facility] [phone] TRINITY MEJIA self
--- OUTSIDE RECORDS SUMMARY | 2021-08-26 11:51 | CCD ---
Author Author [facility] [employer] [facility] Organization [facility] Address Unknown Phone Unavailable Care Team Providers Care District Ranger Name Role Phone Omar Montes De Oca Unavailable PROBLEMS Type Condition ICD9-CM Code OJP25-TZ Code Onset Dates Condition S tatus W/U Status Risk SNOMED Code Notes Problem Major depressive disorder, single episode, unspecified F32.9 Active confirmed 21264541 Problem Cigarette nicotine dependence with nicotine-induced di sorder F17.219 Active confirmed 27669309 Problem Adjustment disorder, unspecified type F43.20 Ac tive confirmed 54273686 Problem Adjustment disorder with anxiety F43.22 Active conf irmed 43722560 Problem Vitamin D deficiency E55.9 Active confirmed 18060944 Problem Cigarette nicotine dependence without complication F17.210 Active confirmed 01401960 Problem Cigarette nicotine dependence with withdrawal F17. 213 Active confirmed 42967339 Problem Current moderate episode of major depressive disorder, unspecified whether recurrent F32.1 Active confirmed 36086438 Problem Other chronic pain G89.29 Active confirmed 8 1057997 Problem Primary osteoarthritis, right shoulder M19.011 A ctive confirmed 190919235072527 Problem Adjustment disorder with anxious mood F43.22 Ac tive confirmed 03777119 Problem Atopic dermatitis and related condition L20.9 Active confirmed 39427219 Problem Generalized anxiety disorder F41.1 Active confirme d 99011824 Problem Erectile dysfunction, unspecified erectile dysfunction typ e N52.9 Active confirmed 108643570 Problem Mood disorder F39 Active confirmed 000806 05 Problem Bipolar I disorder with depression F31.9 Activ e confirmed 78400180 Problem Primary osteoarthritis, 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 Ac tive confirmed [id number] ALLERGIES Allergen (clinical drug ingredient) Drug/Non Drug Allergy do cumented on EMR Reaction Allergy Type Onset Date Status Levaquin Confusion Drug Allergy Active Vicodin over dosed on before Drug Allergy Ac tive amoxicillin Amoxicillin([facility] Code:[address]-42) Nausea/Vomiting Drug Allergy Active ENCOUNTERS from 1965 to 2021-07-08 Encounter Location Date Provider Diagnosis [facility] [address] [phone] [place] [address] Jun, Omar Montes De Oca IMMUNIZATIONS Vaccine Route Administration Date Status TDAP [...] Education Language: Question Answer Notes Languages spoken: Georgian Sikh: Question Answer Notes Sikh No adventist beliefs that would impact health care. Sexual [...] Status Betamethasone Dipropionate 0.05 % 1 application [employer] ally Once a day for 30 days March, Not-Taking Betamethasone Dipropionate 0.05 % 1 application [employer] [facility] Mix entire 50g tube into 1/2 jar of CeraVe cream, Apply twice daily for 14 days 2020 Not-Taking Multivitamin Adult - as directed Orally Once a day for 90 day(s) Not-Taking Meloxicam 15 MG 1 tablet Orally Once a day a s needed for shoulder pain for 7 day(s) March, Not-Taking PROCEDURES No Information RESULTS No Results REASON FOR VISIT 07/13/2021 appt MEDICAL (GENERAL) HISTORY Type Description Date Medical History Major depressive disorder Medical History Schizoaffective disorder Medical History History of opioid abuse Medical History Bilateral shoulder OA Medical History Eczematous dermatitis of skin (follows w [facility] dermatology) Surgical History R knee surgery orthoscopoc Surgical History L wrist tendon repair Surgical History R inguinal hernia repair 2017 Goals Section No Information Health Concerns No Information MEDICAL EQUIPMENT No Information MENTAL STATUS No Information FUNCTIONAL STATUS No Information ASSESSMENTS No Information PLAN OF TREATMENT Next Appt Details Provider Name:Omar Trevino Tavon, 11:30:00 AM, [address], , [place], [address], Insurance Providers Payer Name Payer Address Payer Phone Insured Name Patient Relati onship to Insured Coverage Start Date Coverage End Date [facility] COMMUN[facility] PLAN [facility] [address] [facility] [phone] TRINITY MEJIA self
--- OUTSIDE RECORDS SUMMARY | 2021-08-26 11:51 | CCD ---
Author Author [facility] Organization [facility] Address Unknown Phone Unavailable Care Team Providers Care Content Creation Manager Name Role Phone Omar Montes De Oca Unavailable PROBLEMS Type Condition ICD9-CM Code UEL14-SJ Code Onset Dates Condition S tatus W/U Status Risk SNOMED Code Notes Problem Major depressive disorder, single episode, unspecified F32.9 Active confirmed 71421390 Problem Cigarette nicotine dependence with nicotine-induced di sorder F17.219 Active confirmed 72912749 Problem Adjustment disorder, unspecified type F43.20 Ac tive confirmed 99127425 Problem Adjustment disorder with anxiety F43.22 Active conf irmed 21150986 Problem Vitamin D deficiency E55.9 Active confirmed 65323178 Problem Cigarette nicotine dependence without complication F17.210 Active confirmed 34227159 Problem Cigarette nicotine dependence with withdrawal F17. 213 Active confirmed 44962871 Problem Current moderate episode of major depressive disorder, unspecified whether recurrent F32.1 Active confirmed 52695202 Problem Other chronic pain G89.29 Active confirmed 8 2520467 Problem Primary osteoarthritis, right shoulder M19.011 A ctive confirmed 456821072831092 Problem Adjustment disorder with anxious mood F43.22 Ac tive confirmed 55902235 Problem Atopic dermatitis and related condition L20.9 Active confirmed 58878739 Problem Generalized anxiety disorder F41.1 Active confirme d 36020887 Problem Erectile dysfunction, unspecified erectile dysfunction typ e N52.9 Active confirmed 239212420 Problem Mood disorder F39 Active confirmed 405757 05 Problem Bipolar I disorder with depression F31.9 Activ e confirmed 44114140 Problem Primary osteoarthritis, 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 Ac tive confirmed 490096701084938 ALLERGIES Allergen (clinical drug ingredient) Drug/Non Drug Allergy do cumented on EMR Reaction Allergy Type Onset Date Status Levaquin Confusion Drug Allergy Active Vicodin over dosed on before Drug Allergy Ac tive amoxicillin Amoxicillin([facility] Code:[address]-94) Nausea/Vomiting Drug Allergy Active ENCOUNTERS from 1964 to 2021 Encounter Location Date Provider Diagnosis [facility] Urology [address] [phone] [place] [address] Jun, Omar Tavon IMMUNIZATIONS Vaccine Route Administration Date Status TDAP [...] Language: Question Answer Notes Languages spoken: Georgian Latter-Day: Question Answer Notes Latter-Day No nondenominational beliefs that would impact health care. Sexual [...] Status Betamethasone Dipropionate 0.05 % 1 application [employer] ally Once a day for 30 days March, Not-Taking Betamethasone Dipropionate 0.05 % 1 application [facility] ally Mix entire 50g tube into 1/2 jar of CeraVe cream, Apply twice daily for 14 days 2020 Not-Taking Multivitamin Adult - as directed Orally Once a day for 90 day(s) Not-Taking Meloxicam 15 MG 1 tablet Orally Once a day a s needed for shoulder pain for 7 day(s) March, Not-Taking PROCEDURES No Information RESULTS No Results REASON FOR VISIT appt change MEDICAL (GENERAL) HISTORY Type Description Date Medical History Major depressive disorder Medical History Schizoaffective disorder Medical History History of opioid abuse Medical History Bilateral shoulder OA Medical History Eczematous dermatitis of skin (follows w [facility] dermatology) Surgical History R knee surgery orthoscopoc Surgical History L wrist tendon repair Surgical History R inguinal hernia repair 2017 Goals Section No Information Health Concerns No Information MEDICAL EQUIPMENT No Information MENTAL STATUS No Information FUNCTIONAL STATUS No Information ASSESSMENTS No Information PLAN OF TREATMENT Next Appt Details Provider Name:Omar Trevino Tavon, 11:30:00 AM, [address], , [place], [address], Insurance Providers Payer Name Payer Address Payer Phone Insured Name Patient Relati onship to Insured Coverage Start Date Coverage End Date [facility] COMMUN[facility] PLAN [facility] [address] [facility] [phone] TRINITY MEJIA self
--- OUTSIDE RECORDS SUMMARY | 2021-08-26 11:52 | CCD ---
Author Author [facility] Organization [facility] Address Unknown Phone Unavailable Care Team Providers Care Supervisor Modern Languages Name Role Phone Maring, Zack PA Unavailable Unavailable Maring, Zack PA Unavailable Unavailable Maring, Zack PA Unavailable Unavailable Maring, Zack PA Unavailable Unavailable Maring, Zack PA Unavailable Unavailable Maring, Zack PA Unavailable Unavailable Maring, Zack PA Unavailable Unavailable Maring, Zack PA Unavailable Unavailable Maring, Zack PA Unavailable Unavailable Maring, Zack PA Unavailable Unavailable Maring, Zack PA Unavailable Unavailable Maring, Zack PA Unavailable Unavailable Maring, Zack PA Unavailable Unavailable Maring, Zack PA Unavailable Unavailable Maring, Zack PA Unavailable Unavailable Maring, Zack PA Unavailable Unavailable Nick Rodriguez MD Unavailable Unavailable Nick Rodriguez MD Unavailable Unavailable Nick Rodriguez MD Unavailable Unavailable Nick Rodriguez MD Unavailable Unavailable Nick Rodriguez MD Unavailable Unavailable Nick Rodriguez MD Unavailable Unavailable Nick Rodriguez MD Unavailable Unavailable Nick Rodriguez MD Unavailable Unavailable Nick Rodriguez MD Unavailable Unavailable Nick Rodriguez MD Unavailable Unavailable Nick Rodriguez MD Unavailable Unavailable Nick Rodriguez MD Unavailable Unavailable Nick Rodriguez MD Unavailable Unavailable Mollison, W Akhil MD Unavailable Unavailable Mollison, W Akhil MD Unavailable Unavailable Mollison, W Akhil MD Unavailable Unavailable Mollison, W Akhil MD Unavailable Unavailable Mollison, W Akhil MD Unavailable Unavailable Mollison, W Akhil MD Unavailable Unavailable Mollison, W Akhil MD Unavailable Unavailable Mollison, W Akhil MD Unavailable Unavailable Mollison, W Akhil MD Unavailable Unavailable Mollison, W Akhil MD Unavailable Unavailable Mollison, W Akhil MD Unavailable Unavailable Mollison, W Akhil MD Unavailable Unavailable Mollison, W Akhil MD Unavailable Unavailable Mollison, W Akhil MD Unavailable Unavailable Mollison, W Akhil MD Unavailable Unavailable Mollison, W Akhil MD Unavailable Unavailable Mollison, W Akhil MD Unavailable Unavailable Re-disclosure Warning The records that you are about to access may contain information from federally-assisted alcohol or drug abuse programs. If such information is present, then the following federally mandated warning applies: This information has been disclosed to you from records protected by federal confidentiality rules (42 CFR part 2). The federal rules prohibit you from making any further disclosure of this information unless further disclosure is expressly permitted by the written consent of the person to whom it pertains or as otherwise permitted by 42 CFR part 2. A general authorization for the release of medical or other information is NOT sufficient for this purpose. The Federal rules restrict any use of the information to criminally investigate or prosecute any alcohol or drug abuse patient.The records that you are about to access may contain highly sensitive health information, the redisclosure of which is protected by Article 27-F of the [facility] Public Health law. If you continue you may have access to information: Regarding HIV / AIDS; Provided by facilities licensed or operated by the [facility] Office of Mental Health; or Provided by the [facility] Office for People With Developmental Disabilities. If such information is present, then the following [facility] mandated warning applies: This information has been disclosed to you from confidential records which are protected by state law. State law prohibits you from making any further disclosure of this information without the specific written consent of the person to whom it pertains, or as otherwise permitted by law. Any unauthorized further disclosure in violation of state law may result in a fine or long-term sentence or both. A general authorization for the release of medical or other information is NOT sufficient authorization for further disc losure. Family History Family Member Name Family Member Gender Family Member Status Date o f Status Description Data Source(s) Unknown Female Problem MEDENT ([facility]) Unknown Unknown Problem MEDENT ([facility]) Unknown Unknown Problem MEDENT ([facility]) Encounters Encounter Providers Location Date Indications Data Source(s ) Outpatient Attender: Zack MINOR 08/24/20 10:56:45 AM EDT - 08/24/2021 11:55:17 AM EDT [facility] ([facility] ) [place] [address] [place] [address] 08/10/2021 12:00:00 AM EDT eCW1 ([facility]) [place] [address] [address] 08/08/2021 12:00:00 AM EDT [facility] [place] [address] [address] 07/29/2021 12:00:00 AM EDT eCW1 [facility] [place] [address] [place] [address] 07/13/2021 12:00:00 AM EDT eCW1 ([facility]) [place] [address] [address] 07/07/2021 12:00:00 AM EDT eCW1 ([facility]) [place] [address] [place] [address] 2021 12:00:00 AM EDT eCW1 ([facility]) [place] [address] [place] [address] 06/10/2021 12:00:00 AM EDT eCW1 ([facility]) [place] [address] [place] [address] 06/07/2021 12:00:00 AM EDT eCW1 ([facility]) Outpatient Attender: Akhil Pierre/Karuna/Subhash/Emma marquez 05/09/2021 01:45:00 PM EDT MEDENT ([facility]) [place] [address] [place] [address] 04/27/2021 12:00:00 AM EDT eCW1 ([facility]) [place] [address] [place] [address] 04/26/2021 12:00:00 AM EDT eCW1 ([facility]) [place] [address] [place] [address] 04/25/2021 12:00:00 AM EDT eCW1 ([facility]) [place] [address] [place] [address] 04/25/2021 12:00:00 AM EDT eCW1 ([facility]) [place]patient [address] [place] [address] 03/25/2021 12:00:00 AM EDT eCW1 ([facility]) [place]patient [address] [place] [address] 03/25/2021 12:00:00 AM EDT eCW1 ([facility]) Unknown [address] [address] 03/17/2021 12:00:00 AM EDT eCW1 ([facility]) Unknown [address] [address] 03/16/2021 12:00:00 AM EDT eCW1 ([facility]) [place] [address] [place] [address] 03/11/2021 12:00:00 AM EDT eCW1 ([facility]) [place] [address] [place] [address] 03/08/2021 12:00:00 AM EDT eCW1 ([facility]) [place] [address] [address] 12/28/2020 12:00:00 AM EST eCW1 ([facility]) [place] [address] [place] [address] 12/28/2020 12:00:00 AM EST eCW1 ([facility]) [place] [address] [place] [address] 12/24/2020 12:00:00 AM EST eCW1 ([facility]) Immunizations Vaccine Date Status Description Data Source(s) COVID-19 VACCINE Pfizer 04/29/2021 12:00:00 AM EDT completed [facility] Vaccine Series Complete: YESThis Data wa s Submitted to [facility] Via [employer]. COVID-19 VACC, MRNA(PFIZER)/PF 04/29/2021 12:00:00 AM EDT completed [facility] COVID-19 VACC, MRNA(PFIZER)/PF 04/08/2021 12:00:00 AM EDT completed [facility] COVID-19 VACCINE Pfizer 04/08/2021 12:00:00 AM EDT completed [facility] Vaccine Series Complete: NOThis Data was Submitted to [facility] [employer]. Medications Medication Brand Name Start Date Product Form Dose Route Admi nistrative Instructions Pharmacy Instructions Status Indications Reaction Description Data Source(s) sildenafil 100 MG Oral Tablet [Viagra] Viagra 100 MG Viagra 100 MG 08/10/2021 12:00:00 AM EDT 1.0 {tablet_as_needed} active Viagra 100 MG eCW1 ([facility]) 15 mg 03/26/2021 12:00:00 AM EDT tablet 7 TAKE ONE TABLET BY MOUTH EVERY DAY NEEDED FOR SHOULDER PAIN FOR 7 DAYS TAKE ONE TABLET BY MOUTH EVERY DAY NEEDED FOR SHOULDER PAIN FOR 7 DAYS SOLD: 03/29/2021 [facility] meloxicam 15 MG Oral Tablet Meloxicam 15 MG Meloxicam 15 MG 03/25/2021 12:00:00 AM EDT 1.0 {tablet} suspended Meloxica m 15 MG eCW1 ([facility]) meloxicam 15 MG Oral Tablet Meloxicam 15 MG Meloxicam 15 MG 03/25/2021 12:00:00 AM EDT 1.0 {tablet} suspended Meloxica m 15 MG eCW1 ([facility]) meloxicam 15 MG Oral Tablet Meloxicam 15 MG Meloxicam 15 MG 03/25/2021 12:00:00 AM EDT 1.0 {tablet} active Meloxicam 1 5 MG eCW1 ([facility]) meloxicam 15 MG Oral Tablet Meloxicam 15 MG Meloxicam 15 MG 03/25/2021 12:00:00 AM EDT 1.0 {tablet} suspended Meloxica m 15 MG eCW1 ([facility]) meloxicam 15 MG Oral Tablet Meloxicam 15 MG Meloxicam 15 MG 03/25/2021 12:00:00 AM EDT 1.0 {tablet} suspended Meloxica m 15 MG eCW1 ([facility]) meloxicam 15 MG Oral Tablet Meloxicam 15 MG Meloxicam 15 MG 03/25/2021 12:00:00 AM EDT 1.0 {tablet} suspended Meloxica m 15 MG eCW1 ([facility]) meloxicam 15 MG Oral Tablet Meloxicam 15 MG Meloxicam 15 MG 03/25/2021 12:00:00 AM EDT 1.0 {tablet} suspended Meloxica m 15 MG eCW1 ([facility]) meloxicam 15 MG Oral Tablet Meloxicam 15 MG Meloxicam 15 MG 03/25/2021 12:00:00 AM EDT 1.0 {tablet} suspended Meloxica m 15 MG eCW1 ([facility]) meloxicam 15 MG Oral Tablet Meloxicam 15 MG Meloxicam 15 MG 03/25/2021 12:00:00 AM EDT 1.0 {tablet} suspended Meloxica m 15 MG eCW1 ([facility]) meloxicam 15 MG Oral Tablet Meloxicam 15 MG Meloxicam 15 MG 03/25/2021 12:00:00 AM EDT 1.0 {tablet} suspended Meloxica m 15 MG eCW1 ([facility]) meloxicam 15 MG Oral Tablet Meloxicam 15 MG Meloxicam 15 MG 03/25/2021 12:00:00 AM EDT 1.0 {tablet} suspended Meloxica m 15 MG eCW1 ([facility]) meloxicam 15 MG Oral Tablet Meloxicam 15 MG Meloxicam 15 MG 03/25/2021 12:00:00 AM EDT 1.0 {tablet} suspended Meloxica m 15 MG eCW1 ([facility]) meloxicam 15 MG Oral Tablet Meloxicam 15 MG Meloxicam 15 MG 03/25/2021 12:00:00 AM EDT 1.0 {tablet} suspended Meloxica m 15 MG eCW1 ([facility]) meloxicam 15 MG Oral Tablet Meloxicam 15 MG Meloxicam 15 MG 03/25/2021 12:00:00 AM EDT 1.0 {tablet} active eCW1 ([facility]) 0.05 % 03/17/2021 12:00:00 AM EDT cream 45 APPLY TO AFFECTED AREA(S) ONCE DAILY APPLY TO AFFECTED AREA(S) ONCE DAILY SOLD: 03/18/2021 [facility] Betamethasone 0.5 MG/ML Topical Cream Betamethasone Di propionate 0.05 % Betamethasone Dipropionate 0.05 % 03/14/2021 12:00:00 AM EDT 1.0 {application} suspended Betamethasone Dipropio satish 0.05 % eCW1 ([facility]) Betamethasone 0.5 MG/ML Topical Cream Betamethasone Di propionate 0.05 % Betamethasone Dipropionate 0.05 % 03/14/2021 12:00:00 AM EDT 1.0 {application} active Betamethasone Dipropiona te 0.05 % eCW1 ([facility]) Betamethasone 0.5 MG/ML Topical Cream Betamethasone Di propionate 0.05 % Betamethasone Dipropionate 0.05 % 03/14/2021 12:00:00 AM EDT 1.0 {application} suspended Betamethasone Dipropio satish 0.05 % eCW1 ([facility]) Betamethasone 0.5 MG/ML Topical Cream Betamethasone Di propionate 0.05 % Betamethasone Dipropionate 0.05 % 03/14/2021 12:00:00 AM EDT 1.0 {application} suspended Betamethasone Dipropio satish 0.05 % eCW1 ([facility]) Betamethasone 0.5 MG/ML Topical Cream Betamethasone Di propionate 0.05 % Betamethasone Dipropionate 0.05 % 03/14/2021 12:00:00 AM EDT 1.0 {application} active Betamethasone Dipropiona te 0.05 % eCW1 ([facility]) Betamethasone 0.5 MG/ML Topical Cream Betamethasone Di propionate 0.05 % Betamethasone Dipropionate 0.05 % 03/14/2021 12:00:00 AM EDT 1.0 {application} suspended eCW1 ([facility]) Betamethasone 0.5 MG/ML Topical Cream Betamethasone Di propionate 0.05 % Betamethasone Dipropionate 0.05 % 03/14/2021 12:00:00 AM EDT 1.0 {application} suspended Betamethasone Dipropio satish 0.05 % eCW1 ([facility]) Betamethasone 0.5 MG/ML Topical Cream Betamethasone Di propionate 0.05 % Betamethasone Dipropionate 0.05 % 03/14/2021 12:00:00 AM EDT 1.0 {application} suspended Betamethasone Dipropio satish 0.05 % eCW1 ([facility]) Betamethasone 0.5 MG/ML Topical Cream Betamethasone Di propionate 0.05 % Betamethasone Dipropionate 0.05 % 03/14/2021 12:00:00 AM EDT 1.0 {application} active Betamethasone Dipropiona te 0.05 % eCW1 ([facility]) Betamethasone 0.5 MG/ML Topical Cream Betamethasone Di propionate 0.05 % Betamethasone Dipropionate 0.05 % 03/14/2021 12:00:00 AM EDT 1.0 {application} suspended Betamethasone Dipropio satish 0.05 % eCW1 ([facility]) Betamethasone 0.5 MG/ML Topical Cream Betamethasone Di propionate 0.05 % Betamethasone Dipropionate 0.05 % 03/14/2021 12:00:00 AM EDT 1.0 {application} suspended Betamethasone Dipropio satish 0.05 % eCW1 ([facility]) Betamethasone 0.5 MG/ML Topical Cream Betamethasone Di propionate 0.05 % Betamethasone Dipropionate 0.05 % 03/14/2021 12:00:00 AM EDT 1.0 {application} suspended Betamethasone Dipropio satish 0.05 % eCW1 ([facility]) Betamethasone 0.5 MG/ML Topical Cream Betamethasone Di propionate 0.05 % Betamethasone Dipropionate 0.05 % 03/14/2021 12:00:00 AM EDT 1.0 {application} suspended Betamethasone Dipropio satish 0.05 % eCW1 ([facility]) Betamethasone 0.5 MG/ML Topical Cream Betamethasone Di propionate 0.05 % Betamethasone Dipropionate 0.05 % 03/14/2021 12:00:00 AM EDT 1.0 {application} suspended Betamethasone Dipropio satish 0.05 % eCW1 ([facility]) Betamethasone 0.5 MG/ML Topical Cream Betamethasone Di propionate 0.05 % Betamethasone Dipropionate 0.05 % 03/14/2021 12:00:00 AM EDT 1.0 {application} suspended Betamethasone Dipropio satish 0.05 % eCW1 ([facility]) Betamethasone 0.5 MG/ML Topical Cream Betamethasone Di propionate 0.05 % Betamethasone Dipropionate 0.05 % 03/14/2021 12:00:00 AM EDT 1.0 {application} suspended Betamethasone Dipropio satish 0.05 % eCW1 ([facility]) Betamethasone 0.5 MG/ML Topical Cream Betamethasone Di propionate 0.05 % Betamethasone Dipropionate 0.05 % 03/14/2021 12:00:00 AM EDT 1.0 {application} suspended Betamethasone Dipropio satish 0.05 % eCW1 ([facility]) Betamethasone 0.5 MG/ML Topical Cream Betamethasone Di propionate 0.05 % Betamethasone Dipropionate 0.05 % 03/11/2021 12:00:00 AM EDT 1.0 {application} suspended Betamethasone Dipropio satish 0.05 % eCW1 ([facility]) Betamethasone 0.5 MG/ML Topical Cream Betamethasone Di propionate 0.05 % Betamethasone Dipropionate 0.05 % 03/11/2021 12:00:00 AM EDT 1.0 {application} suspended Betamethasone Dipropio satish 0.05 % eCW1 ([facility]) Betamethasone 0.5 MG/ML Topical Cream Betamethasone Di propionate 0.05 % Betamethasone Dipropionate 0.05 % 03/11/2021 12:00:00 AM EDT 1.0 {application} suspended Betamethasone Dipropio satish 0.05 % eCW1 ([facility]) Betamethasone 0.5 MG/ML Topical Cream Betamethasone Di propionate 0.05 % Betamethasone Dipropionate 0.05 % 03/11/2021 12:00:00 AM EDT 1.0 {application} suspended Betamethasone Dipropio satish 0.05 % eCW1 ([facility]) Betamethasone 0.5 MG/ML Topical Cream Betamethasone Di propionate 0.05 % Betamethasone Dipropionate 0.05 % 03/11/2021 12:00:00 AM EDT 1.0 {application} suspended eCW1 ([facility]) Betamethasone 0.5 MG/ML Topical Cream Betamethasone Di propionate 0.05 % Betamethasone Dipropionate 0.05 % 03/11/2021 12:00:00 AM EDT 1.0 {application} suspended Betamethasone Dipropio satish 0.05 % eCW1 ([facility]) Betamethasone 0.5 MG/ML Topical Cream Betamethasone Di propionate 0.05 % Betamethasone Dipropionate 0.05 % 03/11/2021 12:00:00 AM EDT 1.0 {application} active Betamethasone Dipropiona te 0.05 % eCW1 ([facility]) Betamethasone 0.5 MG/ML Topical Cream Betamethasone Di propionate 0.05 % Betamethasone Dipropionate 0.05 % 03/11/2021 12:00:00 AM EDT 1.0 {application} suspended Betamethasone Dipropio satish 0.05 % eCW1 ([facility]) Betamethasone 0.5 MG/ML Topical Cream Betamethasone Di propionate 0.05 % Betamethasone Dipropionate 0.05 % 03/11/2021 12:00:00 AM EDT 1.0 {application} suspended Betamethasone Dipropio satish 0.05 % eCW1 ([facility]) Betamethasone 0.5 MG/ML Topical Cream Betamethasone Di propionate 0.05 % Betamethasone Dipropionate 0.05 % 03/11/2021 12:00:00 AM EDT 1.0 {application} suspended Betamethasone Dipropio satish 0.05 % eCW1 ([facility]) Betamethasone 0.5 MG/ML Topical Cream Betamethasone Di propionate 0.05 % Betamethasone Dipropionate 0.05 % 03/11/2021 12:00:00 AM EDT 1.0 {application} active Betamethasone Dipropiona te 0.05 % eCW1 ([facility]) Betamethasone 0.5 MG/ML Topical Cream Betamethasone Di propionate 0.05 % Betamethasone Dipropionate 0.05 % 03/11/2021 12:00:00 AM EDT 1.0 {application} suspended Betamethasone Dipropio satish 0.05 % eCW1 ([facility]) Betamethasone 0.5 MG/ML Topical Cream Betamethasone Di propionate 0.05 % Betamethasone Dipropionate 0.05 % 03/11/2021 12:00:00 AM EDT 1.0 {application} active Betamethasone Dipropiona te 0.05 % eCW1 ([facility]) Betamethasone 0.5 MG/ML Topical Cream Betamethasone Di propionate 0.05 % Betamethasone Dipropionate 0.05 % 03/11/2021 12:00:00 AM EDT 1.0 {application} suspended Betamethasone Dipropio satish 0.05 % eCW1 ([facility]) Betamethasone 0.5 MG/ML Topical Cream Betamethasone Di propionate 0.05 % Betamethasone Dipropionate 0.05 % 03/11/2021 12:00:00 AM EDT 1.0 {application} suspended Betamethasone Dipropio satish 0.05 % eCW1 ([facility]) Betamethasone 0.5 MG/ML Topical Cream Betamethasone Di propionate 0.05 % Betamethasone Dipropionate 0.05 % 03/11/2021 12:00:00 AM EDT 1.0 {application} suspended Betamethasone Dipropio satish 0.05 % eCW1 ([facility]) Betamethasone 0.5 MG/ML Topical Cream Betamethasone Di propionate 0.05 % Betamethasone Dipropionate 0.05 % 03/11/2021 12:00:00 AM EDT 1.0 {application} suspended Betamethasone Dipropio satish 0.05 % eCW1 ([facility]) 5 % 01/15/2021 12:00:00 AM EST cream 60 APPLY TO ENTIRE BODY TOPICALLY DAILY FOR 1 DAY APPLY TO ENTIRE BODY TOPICALLY DAILY FOR 1 DAY SOLD: 01/15/2021 [facility] 25 mg 01/15/2021 12:00:00 AM EST tablet 30 TAKE ONE TABLET BY MOUTH FOUR TIMES A DAY NEEDED FOR ITCHING TAKE ONE TABLET BY MOUTH FOUR TIMES A DA Y NEEDED FOR ITCHING SOLD: 01/15/2021 [facility] 0.1 % 12/31/2019 12:00:00 AM EST cream 15 APPLY TWO TIMES A DAY APPLY TWO TIMES A DAY SOLD: 10/14/2020 [facility] Insurance Providers Payer name Policy type / Coverage type Policy ID Covered constitution party ID Covered constitution party's relationship to bunch Policy Bunch Plan Information [facility] COMM[facility]ITY [facility]AN [facility] [id number] SP [id number] [employer] [id number] Self [id number] [facility]) O [id number] S [id number] [facility] COMMUNITY [facility]AN [facility] [id number] SP [id number] [facility] COMM[employer]ITY [employer]AN [facility] [id number] SP [id number] ANS-Medicaid [id number] ANSI-Medicaid [id number] ANSI-Not a Secondary Insurance [id number] ANSI-Medicaid [id number] ANSI-Not a Secondary Insurance [id number] ANSI-Medicaid [id number] ANSI-Medicaid [id number] ANSI-Not a Secondary Insurance [id number] ANSI-Medicaid [id number] ANSI-Not a Secondary Insurance [id number] MEDICAID [id number] SP [id number] ANSI-Not a Secondary Insurance [id number] ANSI-Medicaid [id number] [facility] Community Plan Commercial [id number] Self [facility] Health Maintenance Organization (HMO) [id number] Self MEDICAID M [id number] S [id number] SELF PAY UNAVAILABLE UNAVAILA BLE [facility] O [id number] S [id number] 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, acquired, situational, mild Problem 021 12:00:00 AM EDT eCW1 ([facility]) N50.9 Disorder of male genital organ Scrotal lesion Problem 07/13/2021 12:00:00 AM EDT eCW1 ([facility]) L20.9 [id number] Atopic dermatitis and related condition P roblem 03/25/2021 12:00:00 AM EDT eCW1 ([facility]) M19.011 [id number] Primary osteoarthritis, right shoulder Problem 03/25/2021 12:00:00 AM EDT eCW1 ([facility]) M19.012 [id number] Primary osteoarthritis, left shoulder Problem 03/25/2021 12:00:00 AM EDT eCW1 ([facility]) Surgeries/Procedures Procedure Description Date Indications Data Source(s) Medication: 2% Lidocaine Dilutent 07/13/2021 12:00:00 AM EDT eCW1 ([facility]) Medication: Bupivacaine 0.25% Dilutent 30ml (Marcaine) 07/13/2021 12:00:00 AM EDT eCW1 ([facility]) Inject/Drain Arthrocentesis Major Joint/Bursa/Ganglion Cyst 05/09/2021 12:00:00 AM EDT MEDENT ([facility], ) OFFICE OUTPATIENT NEW 45 MINUTES 05/09/2021 12:00:00 A M EDT MEDENT ([facility], ) Results ID Date Data Source [id number] 11/26/2020 12:00:00 AM EST [facility] Ryan Coon MD Patient Name: TRINITY VENEGAS518 [facility] Date [place] : 1965[place] [address] Date of Exam: [facility]#: Fax: [phone] EXAM: CERVICAL SPINE (2 OR 3 VIEWS) XRAYCLINICAL INFORMATION: Disability determination. Neck pain.TECHNIQUE: AP, lateral and open mouth views of the cervical spine.COMPARISON: MRI dated 07/20/2010.FINDINGS:Alignment and lordosis maintained. Vertebral bodies are intact and thereis no acute fracture, compression injury or subluxation. Moderatedegenerative changes noted at C4-5, C5-6, C6-7 including endplatesclerosis, disc space narrowing and marginal spurring. These findingsappear to be somewhat progressed since prior MRI. Open mouth viewdemonstrates normal C1-2 articulation and odontoid process. Moderate facetarthropathy at C4-5, C5-6 and C6-7 is suggested on lateral radiograph.Surrounding soft tissues are normal.IMPRESSION:Moderate degenerative spondylosis primarily involving C4-5 through C6-7.Findings appear somewhat progressive as compared with MRI. If the patientremains symptomatic, consider repeat MRI to evaluate for posterior discbulge/herniation.ROAS Fortune/Shira you for referring TRINITY VENEGAS to our office. Electronically Signed - ESTELA VELAZQUEZ MD 12/02/20 13:16 Name Value Range Interpretation Code Description Data Beatrice rce(s) Supporting Document(s) ID Date Data Source [id number] 11/26/2020 12:00:00 AM EST [facility] Ryan Coon MD Patient Name: HARPREET VENEGAS [facility] Date [place] : 1965[place] [address] Date of Exam: 11/26/2020#: Fax: [phone] EXAM: LUMBSACRAL SPINE (2 OR 3 VIEWS) XRAYCLINICAL INFORMATION: Disability determination. Lower back pain.TECHNIQUE: AP, lateral, coned down views.FINDINGS:Alignment and lordosis maintained. Vertebral bodies are intact and thereis no evidence for acute fracture, compression injury or subluxation.There is mild chronic appearing retrolisthesis at L2-3 of approximately 2mm. Multi-level endplate sclerosis with marginal spurring, disc spacenarrowing and hypertrophic facet changes are also identified primarilyinvolving L5-S1 and L2-3.IMPRESSION:Moderate multi-level degenerative spondylosis primarily involving L2-3 andL5-S1. If the patient remains symptomatic, consider MRI for furtherinvestigation.ROSA Fortune/Shira you for referring TRINITY VENEGAS to our office. Electronically Signed - ESTELA VELAZQUEZ MD 12/02/20 13:16 Name Value Range Interpretation Code Description Data Beatrice rce(s) Supporting Document(s) Procedure Social History Code Duration Value Status Description Data Source(s ) Smoking 08/10/2021 12:00:00 AM EDT Former Smoker completed Former Smoker eCW1 ([facility]) Smoking 08/09/2021 12:00:00 AM EDT Former Smoker completed Former Smoker eCW1 ([facility]) Smoking 07/13/2021 12:00:00 AM EDT Former Smoker completed Former Smoker eCW1 ([facility]) Smoking 07/13/2021 12:00:00 AM EDT Former Smoker completed Former Smoker eCW1 ([facility]) Smoking 06/10/2021 12:00:00 AM EDT Former Smoker completed Former Smoker eCW1 ([facility]) Smoking 06/10/2021 12:00:00 AM EDT Former Smoker completed Former Smoker eCW1 ([facility]) Smoking 06/10/2021 12:00:00 AM EDT Former Smoker completed Former Smoker eCW1 ([facility]) Smoking 06/07/2021 12:00:00 AM EDT Former Smoker completed Former Smoker eCW1 ([facility]) Smoking 04/28/2021 12:00:00 AM EDT Former Smoker completed Former Smoker eCW1 ([facility]) Smoking 04/25/2021 12:00:00 AM EDT Former Smoker completed Former Smoker eCW1 ([facility]) Smoking 04/25/2021 12:00:00 AM EDT Former Smoker completed Former Smoker eCW1 ([facility]) Smoking 04/25/2021 12:00:00 AM EDT Former Smoker completed Former Smoker eCW1 ([facility]) Smoking 03/30/2021 12:00:00 AM EDT Former Smoker completed Former Smoker eCW1 ([facility]) Smoking 03/30/2021 12:00:00 AM EDT Former Smoker completed Former Smoker eCW1 ([facility]) Smoking 03/11/2021 12:00:00 AM EDT Former Smoker completed Former Smoker eCW1 ([facility]) Smoking 03/11/2021 12:00:00 AM EDT Former Smoker completed Former Smoker eCW1 ([facility]) Smoking 03/11/2021 12:00:00 AM EDT Former Smoker completed Former Smoker eCW1 ([facility]) Smoking 12/24/2020 12:00:00 AM EST Former Smoker completed Former Smoker eCW1 ([facility]) Smoking 12/24/2020 12:00:00 AM EST Former Smoker completed Former Smoker eCW1 ([facility]) Smoking 12/24/2020 12:00:00 AM EST Former Smoker completed Former Smoker eCW1 ([facility]) Smoking 12/24/2020 12:00:00 AM EST Former Smoker completed Former Smoker eCW1 ([facility]) Vital Signs ID Date Data Source UNK Name Value Range Interpretation Code Description Data Source(s) Body weight 166 [lb_av] 166 [lb_av] eCW1 ([facility]) Body weight 75.3 kg 75.3 kg eCW1 ([facility]) Body height 71 [in_i] 71 [in_i] eCW1 ([facility]) Body mass index (BMI) [Ratio] 23.15 kg/m2 23.15 kg/m2 eCW1 ([facility]) Heart rate 78 /min 78 /min eCW1 ([facility]) Respiratory rate 18 /min 18 /min eCW1 ([facility]) Body temperature 98.4 [degF] 98.4 [degF] eCW1 ( [facility]) Systolic blood pressure 132 mm[Hg] 132 mm[Hg] e CW1 ([facility]) Diastolic blood pressure 82 mm[Hg] 82 mm[Hg] eCW1 ([facility]) Body weight 167 [lb_av] 167 [lb_av] eCW1 ([facility]) Diastolic blood pressure 78 mm[Hg] 78 mm[Hg] eCW1 ([facility]) Body weight 75.75 kg 75.75 kg eCW1 ([facility]) Body height 71 [in_i] 71 [in_i] eCW1 ([facility]) Body mass index (BMI) [Ratio] 23.29 kg/m2 23.29 kg/m2 eCW1 ([facility]) Heart rate 75 /min 75 /min eCW1 ([facility]) Respiratory rate 18 /min 18 /min eCW1 ([facility]) Body temperature 96.9 [degF] 96.9 [degF] eCW1 ( [facility]) Systolic blood pressure 142 mm[Hg] 142 mm[Hg] e CW1 ([facility]) Body weight 75.75 kg 75.75 kg eCW1 ([facility]) Body weight 167 [lb_av] 167 [lb_av] eCW1 ([facility]) Heart rate 71 /min 71 /min eCW1 ([facility]) Body height 71 [in_i] 71 [in_i] eCW1 ([facility]) Body mass index (BMI) [Ratio] 23.29 kg/m2 23.29 kg/m2 eCW1 ([facility]) Respiratory rate 18 /min 18 /min eCW1 ([facility]) Body temperature 96.8 [degF] 96.8 [degF] eCW1 ( [facility]) Systolic blood pressure 133 mm[Hg] 133 mm[Hg] e CW1 ([facility]) Diastolic blood pressure 82 mm[Hg] 82 mm[Hg] eCW1 ([facility]) Body weight 162.6 [lb_av] 162.6 [lb_av] eCW1 ([facility]) Body height 71 [in_i] 71 [in_i] eCW1 ([facility]) Respiratory rate 18 /min 18 /min eCW1 ([facility]) Body temperature 98.0 [degF] 98.0 [degF] eCW1 ( [facility]) Systolic blood pressure 120 mm[Hg] 120 mm[Hg] e CW1 ([facility]) Diastolic blood pressure 66 mm[Hg] 66 mm[Hg] eCW1 ([facility]) Body mass index (BMI) [Ratio] 22.68 kg/m2 22.68 kg/m2 eCW1 ([facility]) Heart rate 104 /min 104 /min eCW1 ([facility]) Body temperature 96.8 [degF] 96.8 [degF] MEDENT ([facility], ) Body weight 163.2 [lb_av] 163.2 [lb_av] eCW1 ([facility]) Body mass index (BMI) [Ratio] 22.76 kg/m2 22.76 kg/m2 eCW1 ([facility]) Heart rate 82 /min 82 /min eCW1 ([facility]) Respiratory rate 18 /min 18 /min eCW1 ([facility]) Body temperature 99 [degF] 99 [degF] eCW1 ([facility]) Systolic blood pressure 116 mm[Hg] 116 mm[Hg] e CW1 ([facility]) Diastolic blood pressure 76 mm[Hg] 76 mm[Hg] eCW1 ([facility]) Body height 71 [in_i] 71 [in_i] eCW1 ([facility]) Body weight 166 [lb_av] 166 [lb_av] eCW1 ([facility]) Body height 71 [in_i] 71 [in_i] eCW1 ([facility]) Body mass index (BMI) [Ratio] 23.15 kg/m2 23.15 kg/m2 eCW1 ([facility]) Heart rate 88 /min 88 /min eCW1 ([facility]) Respiratory rate 18 /min 18 /min eCW1 ([facility]) Body temperature 97.8 [degF] 97.8 [degF] eCW1 ( [facility]) Systolic blood pressure 120 mm[Hg] 120 mm[Hg] e CW1 ([facility]) Diastolic blood pressure 86 mm[Hg] 86 mm[Hg] eCW1 ([facility]) Diastolic blood pressure 72 mm[Hg] 72 mm[Hg] eCW1 ([facility]) Body weight 166.6 [lb_av] 166.6 [lb_av] eCW1 ([facility]) Body height 71 [in_i] 71 [in_i] eCW1 ([facility]) Body mass index (BMI) [Ratio] 23.23 kg/m2 23.23 kg/m2 eCW1 ([facility]) Systolic blood pressure 124 mm[Hg] 124 mm[Hg] e CW1 ([facility]) Body weight 179 [lb_av] 179 [lb_av] eCW1 ([facility]) Body height 71 [in_i] 71 [in_i] eCW1 ([facility]) Body mass index (BMI) [Ratio] 24.96 kg/m2 24.96 kg/m2 eCW1 ([facility]) Heart rate 107 /min 107 /min eCW1 ([facility]) Respiratory rate 18 /min 18 /min eCW1 ([facility]) Body temperature 96.8 [degF] 96.8 [degF] eCW1 ( [facility]) Systolic blood pressure 112 mm[Hg] 112 mm[Hg] e CW1 ([facility]) Diastolic blood pressure 70 mm[Hg] 70 mm[Hg] eCW1 ([facility]) Patient Treatment Plan of Care Planned Activity Planned Date Details Description Data Source (s) sildenafil 100 MG Oral Tablet [Viagra] 08/10/2021 12:00:00 AM EDT eCW1 ([facility]) meloxicam 15 MG Oral Tablet 03/25/2021 12:00:00 AM EDT eCW1 ([facility]) meloxicam 15 MG Oral Tablet 03/25/2021 12:00:00 AM EDT eCW1 ([facility]) Betamethasone 0.5 MG/ML Topical Cream 03/14/2021 12:00:00 AM EDT eCW1 ([facility]) Betamethasone 0.5 MG/ML Topical Cream 03/14/2021 12:00:00 AM EDT eCW1 ([facility]) Betamethasone 0.5 MG/ML Topical Cream 03/14/2021 12:00:00 AM EDT eCW1 ([facility]) Betamethasone 0.5 MG/ML Topical Cream 03/11/2021 12:00:00 AM EDT eCW1 ([facility]) Betamethasone 0.5 MG/ML Topical Cream 03/11/2021 12:00:00 AM EDT eCW1 ([facility]) Betamethasone 0.5 MG/ML Topical Cream 03/11/2021 12:00:00 AM EDT eCW1 ([facility])
[2021-08-26] MEDS ORDERED: KETO10TAB PO (11:57)
--- OUTSIDE RECORDS SUMMARY | 2021-08-26 12:57 | CCD ---
Author Author [facility] Organization [facility] Address Unknown Phone Unavailable Care Team Providers Care [employer] Laboratory Technician Name Role Phone Maring, Zack PA Unavailable [...] is protected by Article 27-F of the [facility] Public Health law. If you continue you may have access to information: Regarding HIV / AIDS; Provided by facilities licensed or operated by the [facility] Office of Mental Health; or Provided by the [facility] Office for People With Developmental Disabilities. If such information is present, then the following [facility] mandated warning applies: This information has been [...] law may result in a fine or fdc sentence or both. A general authorization for [...] EDT - 08/24/2021 11:55:17 AM EDT DocuTap ([facility] ) [place] [address] [facility] [address] 08/10/2021 12:00:00 AM EDT eCW1 ([facility]) [place] [address] [facility] [address] 08/08/2021 12:00:00 AM EDT [facility]CW1 [facility] [place] [address] [facility] [address] 07/29/2021 12:00:00 AM EDT eCW1 [facility] [place] [address] [facility] [address] 07/13/2021 12:00:00 AM EDT eCW1 ([facility]) Unknown [address] [facility] [address] 07/07/2021 12:00:00 AM EDT eCW1 ([facility]) [place] [address] [facility] [address] 2021 12:00:00 AM EDT eCW1 [facility]) [place] [address] [facility] [address] 06/10/2021 12:00:00 AM EDT eCW1 ([facility]) [place] [address] [facility] [address] 06/07/2021 12:00:00 AM EDT eCW1 ([facility]) Outpatient Attender: Akhil Pierre/Karuna/Subhash/Emma marquez 05/09/2021 01:45:00 PM EDT MEDENT ([facility]) [place] [address] [facility] [address] 04/27/2021 12:00:00 AM EDT eCW1 ([facility]) Unknown [address] [facility] [address] 04/26/2021 12:00:00 AM EDT eCW1 ([facility]) Unknown [address] [facility] [address] 04/25/2021 12:00:00 AM EDT eCW1 ([facility]) [place]patient [address] [facility] [address] 04/25/2021 12:00:00 AM EDT eCW1 ([facility]) Outpatient [address] [facility] [address] 03/25/2021 12:00:00 AM EDT eCW1 ([facility]) Outpatient [address] [facility] [address] 03/25/2021 12:00:00 AM EDT eCW1 ([facility]) Unknown [address] [facility] [address] 03/17/2021 12:00:00 AM EDT eCW1 ([facility]) Unknown [address] [facility] [address] 03/16/2021 12:00:00 AM EDT eCW1 ([facility]) Unknown [address] [facility] [address] 03/11/2021 12:00:00 AM EDT eCW1 ([facility]) Unknown [address] [facility] [address] 03/08/2021 12:00:00 AM EDT eCW1 ([facility]) Unknown [address] [facility] [address] 12/28/2020 12:00:00 AM EST eCW1 ([facility]) Unknown [address] [facility] [address] 12/28/2020 12:00:00 AM EST eCW1 ([facility]) Out[place] [address] [facility] [address] 12/24/2020 12:00:00 AM EST eCW1 ([facility]) Immunizations Vaccine Date Status Description Data Source(s) COVID-19 VACCINE Pfizer 04/29/2021 12:00:00 AM EDT completed [facility] Vaccine Series Complete: YESThis Data wa s Submitted to [facility] Via [employer]. COVID-19 VACC, MRNA(PFIZER)/PF 04/29/2021 12:00:00 AM EDT completed [facility] COVID-19 VACC, MRNA(PFIZER)/PF 04/08/2021 12:00:00 AM EDT completed [facility] COVID-19 VACCINE Pfizer 04/08/2021 12:00:00 AM EDT completed [facility] Vaccine Series Complete: NOThis Data was Submitted to [facility] Via [employer]. Medications Medication Brand Name Start Date Product Form Dose Route Admi nistrative Instructions Pharmacy Instructions Status Indications Reaction Description Data Source(s) sildenafil 100 MG Oral Tablet [Viagra] Viagra 100 MG Viagra 100 MG 08/10/2021 12:00:00 AM EDT 1.0 {tablet_as_needed} active Viagra 100 MG eCW1 ([facility]) 15 mg 03/26/2021 12:00:00 AM EDT tablet 7 TAKE ONE TABLET BY MOUTH EVERY DAY NEEDED FOR SHOULDER PAIN FOR 7 DAYS TAKE ONE TABLET BY MOUTH EVERY DAY NEEDED FOR SHOULDER PAIN FOR 7 DAYS SOLD: 03/29/2021 [facility] meloxicam 15 MG Oral Tablet Meloxicam 15 MG Meloxicam 15 MG 03/25/2021 12:00:00 AM EDT 1.0 {tablet} suspended Meloxica m 15 MG eCW1 ([facility]) meloxicam 15 MG Oral Tablet Meloxicam 15 MG Meloxicam 15 MG 03/25/2021 12:00:00 AM EDT 1.0 {tablet} suspended Meloxica m 15 MG eCW1 ([facility]) meloxicam 15 MG Oral Tablet Meloxicam 15 MG Meloxicam 15 MG 03/25/2021 12:00:00 AM EDT 1.0 {tablet} active Meloxicam 1 5 MG eCW1 ([facility]) meloxicam 15 MG Oral Tablet Meloxicam 15 MG Meloxicam 15 MG 03/25/2021 12:00:00 AM EDT 1.0 {tablet} suspended Meloxica m 15 MG eCW1 ([facility]) meloxicam 15 MG Oral Tablet Meloxicam 15 MG Meloxicam 15 MG 03/25/2021 12:00:00 AM EDT 1.0 {tablet} suspended Meloxica m 15 MG eCW1 ([facility]) meloxicam 15 MG Oral Tablet Meloxicam 15 MG Meloxicam 15 MG 03/25/2021 12:00:00 AM EDT 1.0 {tablet} suspended Meloxica m 15 MG eCW1 ([facility]) meloxicam 15 MG Oral Tablet Meloxicam 15 MG Meloxicam 15 MG 03/25/2021 12:00:00 AM EDT 1.0 {tablet} suspended Meloxica m 15 MG eCW1 ([facility]) meloxicam 15 MG Oral Tablet Meloxicam 15 MG Meloxicam 15 MG 03/25/2021 12:00:00 AM EDT 1.0 {tablet} suspended Meloxica m 15 MG eCW1 ([facility]) meloxicam 15 MG Oral Tablet Meloxicam 15 MG Meloxicam 15 MG 03/25/2021 12:00:00 AM EDT 1.0 {tablet} suspended Meloxica m 15 MG eCW1 ([facility]) meloxicam 15 MG Oral Tablet Meloxicam 15 MG Meloxicam 15 MG 03/25/2021 12:00:00 AM EDT 1.0 {tablet} suspended Meloxica m 15 MG eCW1 ([facility]) meloxicam 15 MG Oral Tablet Meloxicam 15 MG Meloxicam 15 MG 03/25/2021 12:00:00 AM EDT 1.0 {tablet} suspended Meloxica m 15 MG eCW1 ([facility]) meloxicam 15 MG Oral Tablet Meloxicam 15 MG Meloxicam 15 MG 03/25/2021 12:00:00 AM EDT 1.0 {tablet} suspended Meloxica m 15 MG eCW1 ([facility]) meloxicam 15 MG Oral Tablet Meloxicam 15 MG Meloxicam 15 MG 03/25/2021 12:00:00 AM EDT 1.0 {tablet} suspended Meloxica m 15 MG eCW1 ([facility]) meloxicam 15 MG Oral Tablet Meloxicam 15 MG Meloxicam 15 MG 03/25/2021 12:00:00 AM EDT 1.0 {tablet} active eCW1 ([facility]) 0.05 % 03/17/2021 12:00:00 AM EDT cream 45 APPLY TO AFFECTED AREA(S) ONCE DAILY APPLY TO AFFECTED AREA(S) ONCE DAILY SOLD: 03/18/2021 [facility] Betamethasone 0.5 MG/ML Topical Cream Betamethasone Di propionate 0.05 % Betamethasone Dipropionate 0.05 % 03/14/2021 12:00:00 AM EDT 1.0 {application} suspended Betamethasone Dipropio satish 0.05 % eCW1 ([facility]) Betamethasone 0.5 MG/ML Topical Cream Betamethasone Di propionate 0.05 % Betamethasone Dipropionate 0.05 % 03/14/2021 12:00:00 AM EDT 1.0 {application} active Betamethasone Dipropiona te 0.05 % eCW1 ([facility]) Betamethasone 0.5 MG/ML Topical Cream Betamethasone Di propionate 0.05 % Betamethasone Dipropionate 0.05 % 03/14/2021 12:00:00 AM EDT 1.0 {application} suspended Betamethasone Dipropio satish 0.05 % eCW1 ([facility]) Betamethasone 0.5 MG/ML Topical Cream Betamethasone Di propionate 0.05 % Betamethasone Dipropionate 0.05 % 03/14/2021 12:00:00 AM EDT 1.0 {application} suspended Betamethasone Dipropio satish 0.05 % eCW1 ([facility]) Betamethasone 0.5 MG/ML Topical Cream Betamethasone Di propionate 0.05 % Betamethasone Dipropionate 0.05 % 03/14/2021 12:00:00 AM EDT 1.0 {application} active Betamethasone Dipropiona te 0.05 % eCW1 ([facility]) Betamethasone 0.5 MG/ML Topical Cream Betamethasone Di propionate 0.05 % Betamethasone Dipropionate 0.05 % 03/14/2021 12:00:00 AM EDT 1.0 {application} suspended eCW1 ([facility]) Betamethasone 0.5 MG/ML Topical Cream Betamethasone Di propionate 0.05 % Betamethasone Dipropionate 0.05 % 03/14/2021 12:00:00 AM EDT 1.0 {application} suspended Betamethasone Dipropio satish 0.05 % eCW1 ([facility]) Betamethasone 0.5 MG/ML Topical Cream Betamethasone Di propionate 0.05 % Betamethasone Dipropionate 0.05 % 03/14/2021 12:00:00 AM EDT 1.0 {application} suspended Betamethasone Dipropio satish 0.05 % eCW1 ([facility]) Betamethasone 0.5 MG/ML Topical Cream Betamethasone Di propionate 0.05 % Betamethasone Dipropionate 0.05 % 03/14/2021 12:00:00 AM EDT 1.0 {application} active Betamethasone Dipropiona te 0.05 % eCW1 ([facility]) Betamethasone 0.5 MG/ML Topical Cream Betamethasone Di propionate 0.05 % Betamethasone Dipropionate 0.05 % 03/14/2021 12:00:00 AM EDT 1.0 {application} suspended Betamethasone Dipropio satish 0.05 % eCW1 ([facility]) Betamethasone 0.5 MG/ML Topical Cream Betamethasone Di propionate 0.05 % Betamethasone Dipropionate 0.05 % 03/14/2021 12:00:00 AM EDT 1.0 {application} suspended Betamethasone Dipropio satish 0.05 % eCW1 ([facility]) Betamethasone 0.5 MG/ML Topical Cream Betamethasone Di propionate 0.05 % Betamethasone Dipropionate 0.05 % 03/14/2021 12:00:00 AM EDT 1.0 {application} suspended Betamethasone Dipropio satish 0.05 % eCW1 ([facility]) Betamethasone 0.5 MG/ML Topical Cream Betamethasone Di propionate 0.05 % Betamethasone Dipropionate 0.05 % 03/14/2021 12:00:00 AM EDT 1.0 {application} suspended Betamethasone Dipropio satish 0.05 % eCW1 ([facility]) Betamethasone 0.5 MG/ML Topical Cream Betamethasone Di propionate 0.05 % Betamethasone Dipropionate 0.05 % 03/14/2021 12:00:00 AM EDT 1.0 {application} suspended Betamethasone Dipropio satish 0.05 % eCW1 ([facility]) Betamethasone 0.5 MG/ML Topical Cream Betamethasone Di propionate 0.05 % Betamethasone Dipropionate 0.05 % 03/14/2021 12:00:00 AM EDT 1.0 {application} suspended Betamethasone Dipropio satish 0.05 % eCW1 ([facility]) Betamethasone 0.5 MG/ML Topical Cream Betamethasone Di propionate 0.05 % Betamethasone Dipropionate 0.05 % 03/14/2021 12:00:00 AM EDT 1.0 {application} suspended Betamethasone Dipropio satish 0.05 % eCW1 ([facility]) Betamethasone 0.5 MG/ML Topical Cream Betamethasone Di propionate 0.05 % Betamethasone Dipropionate 0.05 % 03/14/2021 12:00:00 AM EDT 1.0 {application} suspended Betamethasone Dipropio satish 0.05 % eCW1 ([facility]) Betamethasone 0.5 MG/ML Topical Cream Betamethasone Di propionate 0.05 % Betamethasone Dipropionate 0.05 % 03/11/2021 12:00:00 AM EDT 1.0 {application} suspended Betamethasone Dipropio satish 0.05 % eCW1 ([facility]) Betamethasone 0.5 MG/ML Topical Cream Betamethasone Di propionate 0.05 % Betamethasone Dipropionate 0.05 % 03/11/2021 12:00:00 AM EDT 1.0 {application} suspended Betamethasone Dipropio satish 0.05 % eCW1 ([facility]) Betamethasone 0.5 MG/ML Topical Cream Betamethasone Di propionate 0.05 % Betamethasone Dipropionate 0.05 % 03/11/2021 12:00:00 AM EDT 1.0 {application} suspended Betamethasone Dipropio satish 0.05 % eCW1 ([facility]) Betamethasone 0.5 MG/ML Topical Cream Betamethasone Di propionate 0.05 % Betamethasone Dipropionate 0.05 % 03/11/2021 12:00:00 AM EDT 1.0 {application} suspended Betamethasone Dipropio satish 0.05 % eCW1 ([facility]) Betamethasone 0.5 MG/ML Topical Cream Betamethasone Di propionate 0.05 % Betamethasone Dipropionate 0.05 % 03/11/2021 12:00:00 AM EDT 1.0 {application} suspended eCW1 ([facility]) Betamethasone 0.5 MG/ML Topical Cream Betamethasone Di propionate 0.05 % Betamethasone Dipropionate 0.05 % 03/11/2021 12:00:00 AM EDT 1.0 {application} suspended Betamethasone Dipropio satish 0.05 % eCW1 ([facility]) Betamethasone 0.5 MG/ML Topical Cream Betamethasone Di propionate 0.05 % Betamethasone Dipropionate 0.05 % 03/11/2021 12:00:00 AM EDT 1.0 {application} active Betamethasone Dipropiona te 0.05 % eCW1 ([facility]) Betamethasone 0.5 MG/ML Topical Cream Betamethasone Di propionate 0.05 % Betamethasone Dipropionate 0.05 % 03/11/2021 12:00:00 AM EDT 1.0 {application} suspended Betamethasone Dipropio satish 0.05 % eCW1 ([facility]) Betamethasone 0.5 MG/ML Topical Cream Betamethasone Di propionate 0.05 % Betamethasone Dipropionate 0.05 % 03/11/2021 12:00:00 AM EDT 1.0 {application} suspended Betamethasone Dipropio satish 0.05 % eCW1 ([facility]) Betamethasone 0.5 MG/ML Topical Cream Betamethasone Di propionate 0.05 % Betamethasone Dipropionate 0.05 % 03/11/2021 12:00:00 AM EDT 1.0 {application} suspended Betamethasone Dipropio satish 0.05 % eCW1 ([facility]) Betamethasone 0.5 MG/ML Topical Cream Betamethasone Di propionate 0.05 % Betamethasone Dipropionate 0.05 % 03/11/2021 12:00:00 AM EDT 1.0 {application} active Betamethasone Dipropiona te 0.05 % eCW1 ([facility]) Betamethasone 0.5 MG/ML Topical Cream Betamethasone Di propionate 0.05 % Betamethasone Dipropionate 0.05 % 03/11/2021 12:00:00 AM EDT 1.0 {application} suspended Betamethasone Dipropio satish 0.05 % eCW1 ([facility]) Betamethasone 0.5 MG/ML Topical Cream Betamethasone Di propionate 0.05 % Betamethasone Dipropionate 0.05 % 03/11/2021 12:00:00 AM EDT 1.0 {application} active Betamethasone Dipropiona te 0.05 % eCW1 ([facility]) Betamethasone 0.5 MG/ML Topical Cream Betamethasone Di propionate 0.05 % Betamethasone Dipropionate 0.05 % 03/11/2021 12:00:00 AM EDT 1.0 {application} suspended Betamethasone Dipropio satish 0.05 % eCW1 ([facility]) Betamethasone 0.5 MG/ML Topical Cream Betamethasone Di propionate 0.05 % Betamethasone Dipropionate 0.05 % 03/11/2021 12:00:00 AM EDT 1.0 {application} suspended Betamethasone Dipropio satish 0.05 % eCW1 ([facility]) Betamethasone 0.5 MG/ML Topical Cream Betamethasone Di propionate 0.05 % Betamethasone Dipropionate 0.05 % 03/11/2021 12:00:00 AM EDT 1.0 {application} suspended Betamethasone Dipropio satish 0.05 % eCW1 ([facility]) Betamethasone 0.5 MG/ML Topical Cream Betamethasone Di propionate 0.05 % Betamethasone Dipropionate 0.05 % 03/11/2021 12:00:00 AM EDT 1.0 {application} suspended Betamethasone Dipropio satish 0.05 % eCW1 ([facility]) 5 % 01/15/2021 12:00:00 AM EST cream [...] type / Coverage type Policy ID Covered democrat ID Covered democrat's relationship to bunch Policy Bunch Plan Information [facility] [id number] SP [id number] [employer] [id number] Self [id number] [facility](MCA[facility]) O [id number] S [id number] [facility] [employer] [id number] SP [id number] [facility] [facility] [id number] SP [id number] ANS-Medicaid [id number] ANSI-Medicaid [id number] ANSI-Not a Secondary Insurance [id number] ANSI-Medicaid [id number] ANSI-Not a Secondary Insurance [id number] ANSI-Medicaid [id number] ANSI-Medicaid [id number] ANSI-Not a Secondary Insurance [id number] ANSI-Medicaid [id number] ANSI-Not a Secondary Insurance [id number] MEDICAID [id number] SP [id number] ANSI-Not a Secondary Insurance [id number] ANSI-Medicaid [id number] [facility] Community Plan Commercial [id number] Self [facility] Health Maintenance Organization (HMO) [id number] Self MEDICAID M [id number] S [id number] SELF PAY UNAVAILABLE UNAVAILA BLE [facility] O [id number] S [id number] [facility] PHY [id number] SP [id number] [employer] [id number] SP [id number] [employer] P [id number] S [id number] OTHER [employer] [id number] SP [id number] O BLUE [id number] SP [id number] [facility] [employer] [id number] SP [id number] [facility] O [id number] S [id number] Problems, Conditions, and Diagnoses Code Display Name Description Problem Type Effective Dates Data Source(s) N52.39 [id number] Other post-procedural erectile dysfunctio n Problem 08/10/2021 12:00:00 AM EDT eCW1 ([facility]) 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, acquired, situational, mild Problem 021 12:00:00 AM EDT eCW1 ([facility]) N50.9 Disorder of male genital organ Scrotal lesion Problem 07/13/2021 12:00:00 AM EDT eCW1 ([facility]) L20.9 [id number] Atopic dermatitis and related condition P roblem 03/25/2021 12:00:00 AM EDT eCW1 ([facility]) M19.011 [id number] Primary osteoarthritis, right shoulder Problem 03/25/2021 12:00:00 AM EDT eCW1 ([facility]) M19.012 [id number] Primary osteoarthritis, left shoulder Problem 03/25/2021 12:00:00 AM EDT eCW1 ([facility]) Surgeries/Procedures Procedure Description Date Indications Data Source(s) Medication: 2% Lidocaine Dilutent 07/13/2021 12:00:00 AM EDT eCW1 ([facility]) Medication: Bupivacaine 0.25% Dilutent 30ml (Marcaine) 07/13/2021 12:00:00 AM EDT eCW1 ([facility]) Inject/Drain Arthrocentesis Major Joint/Bursa/Ganglion Cyst 05/09/2021 12:00:00 AM EDT MEDENT ([facility], ) OFFICE OUTPATIENT NEW 45 MINUTES 05/09/2021 12:00:00 A M EDT MEDENT ([facility], ) Results ID Date Data Source [id number] 11/26/2020 12:00:00 AM EST [facility] Ryan Coon MD Patient Name: TRINITY VENEGAS518 [facility] Date [place] : 1965[place] [address] Date of Exam: [facility]#: Fax: [phone] EXAM: CERVICAL SPINE (2 OR [...] consider repeat MRI to evaluate for posterior discbulge/herniation.ROSA Fortune/Shira you for referring TRINITY VENEGAS to our office. Electronically Signed - ESTELA VELAZQUEZ MD 12/02/20 13:16 Name Value Range Interpretation Code Description Data Beatrice rce(s) Supporting Document(s) ID Date Data Source [id number] 11/26/2020 12:00:00 AM EST [facility] Ryan Coon MD Patient Name: HARPREET VENEGAS [facility] Date [place] : 1965[place] [address] Date of Exam: 11/26/2020#: Fax: [phone] EXAM: [...] EDT Former Smoker completed Former Smoker eCW1 ([facility]) Smoking 08/09/2021 12:00:00 AM EDT Former Smoker completed Former Smoker eCW1 ([facility]) Smoking 07/13/2021 12:00:00 AM EDT Former Smoker completed Former Smoker eCW1 ([facility]) Smoking 07/13/2021 12:00:00 AM EDT Former Smoker completed Former Smoker eCW1 ([facility]) Smoking 06/10/2021 12:00:00 AM EDT Former Smoker completed Former Smoker eCW1 ([facility]) Smoking 06/10/2021 12:00:00 AM EDT Former Smoker completed Former Smoker eCW1 ([facility]) Smoking 06/10/2021 12:00:00 AM EDT Former Smoker completed Former Smoker eCW1 ([facility]) Smoking 06/07/2021 12:00:00 AM EDT Former Smoker completed Former Smoker eCW1 ([facility]) Smoking 04/28/2021 12:00:00 AM EDT Former Smoker completed Former Smoker eCW1 ([facility]) Smoking 04/25/2021 12:00:00 AM EDT Former Smoker completed Former Smoker eCW1 ([facility]) Smoking 04/25/2021 12:00:00 AM EDT Former Smoker completed Former Smoker eCW1 ([facility]) Smoking 04/25/2021 12:00:00 AM EDT Former Smoker completed Former Smoker eCW1 ([facility]) Smoking 03/30/2021 12:00:00 AM EDT Former Smoker completed Former Smoker eCW1 ([facility]) Smoking 03/30/2021 12:00:00 AM EDT Former Smoker completed Former Smoker eCW1 ([facility]) Smoking 03/11/2021 12:00:00 AM EDT Former Smoker completed Former Smoker eCW1 ([facility]) Smoking 03/11/2021 12:00:00 AM EDT Former Smoker completed Former Smoker eCW1 ([facility]) Smoking 03/11/2021 12:00:00 AM EDT Former Smoker completed Former Smoker eCW1 ([facility]) Smoking 12/24/2020 12:00:00 AM EST Former Smoker completed Former Smoker eCW1 ([facility]) Smoking 12/24/2020 12:00:00 AM EST Former Smoker completed Former Smoker eCW1 ([facility]) Smoking 12/24/2020 12:00:00 AM EST Former Smoker completed Former Smoker eCW1 ([facility]) Smoking 12/24/2020 12:00:00 AM EST Former Smoker completed Former Smoker eCW1 ([facility]) Vital Signs ID Date Data Source UNK Name Value Range Interpretation Code Description Data Source(s) Body weight 166 [lb_av] 166 [lb_av] eCW1 ([facility]) Body weight 75.3 kg 75.3 kg eCW1 ([facility]) Body height 71 [in_i] 71 [in_i] eCW1 ([facility]) Body mass index (BMI) [Ratio] 23.15 kg/m2 23.15 kg/m2 eCW1 ([facility]) Heart rate 78 /min 78 /min eCW1 ([facility]) Respiratory rate 18 /min 18 /min eCW1 ([facility]) Body temperature 98.4 [degF] 98.4 [degF] eCW1 ( [facility]) Systolic blood pressure 132 mm[Hg] 132 mm[Hg] e CW1 ([facility]) Diastolic blood pressure 82 mm[Hg] 82 mm[Hg] eCW1 ([facility]) Body weight 75.75 kg 75.75 kg eCW1 ([facility]) Body weight 167 [lb_av] 167 [lb_av] eCW1 ([facility]) Body height 71 [in_i] 71 [in_i] eCW1 ([facility]) Diastolic blood pressure 78 mm[Hg] 78 mm[Hg] eCW1 ([facility]) Body mass index (BMI) [Ratio] 23.29 kg/m2 23.29 kg/m2 eCW1 [facility] [facility] Heart rate 75 /min 75 /min eCW1 ([facility]) Respiratory rate 18 /min 18 /min eCW1 ([facility]) Body temperature 96.9 [degF] 96.9 [degF] eCW1 ( [facility]) Systolic blood pressure 142 mm[Hg] 142 mm[Hg] e CW1 ([facility]) Body weight 167 [lb_av] 167 [lb_av] eCW1 ([facility]) Heart rate 71 /min 71 /min eCW1 ([facility]) Body weight 75.75 kg 75.75 kg eCW1 ([facility]) Body height 71 [in_i] 71 [in_i] eCW1 ([facility]) Body mass index (BMI) [Ratio] 23.29 kg/m2 23.29 kg/m2 eCW1 ([facility]) Respiratory rate 18 /min 18 /min eCW1 ([facility]) Body temperature 96.8 [degF] 96.8 [degF] eCW1 ( [facility]) Systolic blood pressure 133 mm[Hg] 133 mm[Hg] e CW1 ([facility]) Diastolic blood pressure 82 mm[Hg] 82 mm[Hg] eCW1 ([facility]) Body mass index (BMI) [Ratio] 22.68 kg/m2 22.68 kg/m2 eCW1 ([facility]) Heart rate 104 /min 104 /min eCW1 ([facility]) Body weight 162.6 [lb_av] 162.6 [lb_av] eCW1 (formerly [facility]) Body height 71 [in_i] 71 [in_i] eCW1 ([facility]) Respiratory rate 18 /min 18 /min eCW1 ([facility]) Body temperature 98.0 [degF] 98.0 [degF] eCW1 ( [facility]) Systolic blood pressure 120 mm[Hg] 120 mm[Hg] e CW1 ([facility]) Diastolic blood pressure 66 mm[Hg] 66 mm[Hg] eCW1 ([facility]) Body temperature 96.8 [degF] 96.8 [degF] MEDENT ([facility], ) Body weight 163.2 [lb_av] 163.2 [lb_av] eCW1 (formerly [facility]) Body height 71 [in_i] 71 [in_i] eCW1 ([facility]) Body mass index (BMI) [Ratio] 22.76 kg/m2 22.76 kg/m2 eCW1 ([facility]) Heart rate 82 /min 82 /min eCW1 ([facility]) Respiratory rate 18 /min 18 /min eCW1 ([facility]) Body temperature 99 [degF] 99 [degF] eCW1 ([facility]) Systolic blood pressure 116 mm[Hg] 116 mm[Hg] e CW1 ([facility]) Diastolic blood pressure 76 mm[Hg] 76 mm[Hg] eCW1 ([facility]) Body weight 166 [lb_av] 166 [lb_av] eCW1 ([facility]) Body height 71 [in_i] 71 [in_i] eCW1 ([facility]) Body mass index (BMI) [Ratio] 23.15 kg/m2 23.15 kg/m2 eCW1 ([facility]) Heart rate 88 /min 88 /min eCW1 ([facility]) Respiratory rate 18 /min 18 /min eCW1 ([facility]) Body temperature 97.8 [degF] 97.8 [degF] eCW1 ( [facility]) Systolic blood pressure 120 mm[Hg] 120 mm[Hg] e CW1 ([facility]) Diastolic blood pressure 86 mm[Hg] 86 mm[Hg] eCW1 ([facility]) Body weight 166.6 [lb_av] 166.6 [lb_av] eCW1 (formerly [facility]) Body height 71 [in_i] 71 [in_i] eCW1 ([facility]) Systolic blood pressure 124 mm[Hg] 124 mm[Hg] e CW1 ([facility]) Body mass index (BMI) [Ratio] 23.23 kg/m2 23.23 kg/m2 eCW1 ([facility]) Diastolic blood pressure 72 mm[Hg] 72 mm[Hg] eCW1 ([facility]) Body weight 179 [lb_av] 179 [lb_av] eCW1 ([facility]) Body height 71 [in_i] 71 [in_i] eCW1 ([facility]) Body mass index (BMI) [Ratio] 24.96 kg/m2 24.96 kg/m2 eCW1 ([facility]) Heart rate 107 /min 107 /min eCW1 ([facility]) Respiratory rate 18 /min 18 /min eCW1 ([facility]) Body temperature 96.8 [degF] 96.8 [degF] eCW1 ( [facility]) Systolic blood pressure 112 mm[Hg] 112 mm[Hg] e CW1 ([facility]) Diastolic blood pressure 70 mm[Hg] 70 mm[Hg] eCW1 ([facility]) Patient Treatment Plan of Care Planned Activity Planned Date Details Description Data Source (s) sildenafil 100 MG Oral Tablet [Viagra] 08/10/2021 12:00:00 AM EDT eCW1 ([facility]) meloxicam 15 MG Oral Tablet 03/25/2021 12:00:00 AM EDT eCW1 ([facility]) meloxicam 15 MG Oral Tablet 03/25/2021 12:00:00 AM EDT eCW1 ([facility]) Betamethasone 0.5 MG/ML Topical Cream 03/14/2021 12:00:00 AM EDT eCW1 ([facility]) Betamethasone 0.5 MG/ML Topical Cream 03/14/2021 12:00:00 AM EDT eCW1 ([facility]) Betamethasone 0.5 MG/ML Topical Cream 03/14/2021 12:00:00 AM EDT eCW1 ([facility]) Betamethasone 0.5 MG/ML Topical Cream 03/11/2021 12:00:00 AM EDT eCW1 ([facility]) Betamethasone 0.5 MG/ML Topical Cream 03/11/2021 12:00:00 AM EDT eCW1 ([facility]) Betamethasone 0.5 MG/ML Topical Cream 03/11/2021 12:00:00 AM EDT eCW1 ([facility])
[2021-08-26] MEDS ORDERED: NS 1,000 ML IV ONE (13:30)
[2021-08-26] MEDS ORDERED: ISOVUE-370 76% 100ML VIAL As Ordered ONE (14:04)
[2021-08-26 14:13] LABS: BASO % 0.5 % (0.0-1.0); EOS # 0.2 10^3/uL (0.0-0.5); HEMATOCRIT 42.7 % (42.0-52.0); HEMOGLOBIN 14.3 g/dl (13.5-17.5); LYMPH # 1.9 10^3/uL (1.5-5.0); LYMPH % 25.9 % (24.0-44.0); MEAN CORPUSCULAR HEMOGLOBIN 30.8 pg (27.0-33.0); MEAN CORPUSCULAR HGB CONC 33.5 g/dl (32.0-36.5); MONO # 0.6 10^3/uL (0.0-0.8); MONO % 8.2 % (2.0-8.0); NEUTROPHILS # 4.7 10^3/uL (1.5-8.5); NEUTROPHILS % 63.1 % (36.0-66.0); PLATELET COUNT, AUTOMATED 145 10^3/uL (150-450); RED BLOOD COUNT 4.64 10^6/uL (4.30-6.10); WHITE BLOOD COUNT 7.4 10^3/uL (4.0-10.0)
--- NOTE | 2021-08-26 14:24 | REP ---
INDICATION: rlq pain. COMPARISON: None TECHNIQUE: Axial contrast-enhanced images from the lung bases to the pubic symphysis using 100 cc Isovue 370 intravenous contrast material. Coronal and sagittal reformations obtained. This CT examination was performed using the following dose reduction techniques: Automated exposure control, adjustment of mA and/or kv according to the patient's size, and the use of iterative reconstruction technique. FINDINGS: Liver, spleen, pancreas, gallbladder, bilateral adrenal glands and kidneys are normal. Incidental 1 cm hepatic cyst noted. The enteric system including stomach, small, and large bowel appears normal. No evidence for obstruction or acute inflammatory process. Normal terminal ileum and appendix are identified in the right lower quadrant. Colonic and sigmoid diverticulosis noted without acute diverticulitis. Pelvis demonstrates normal bladder and age-appropriate prostate/seminal vesicles. No ascites. No free air. No intraperitoneal or retroperitoneal adenopathy. Abdominal aorta and vasculature appear normal. Musculoskeletal structures are intact and without acute osseous abnormality. Incidental 1.2 cm sclerotic focus in the left iliac bone likely bone island. IMPRESSION: No acute abdominopelvic pathology appreciated. <Electronically signed by Mynor Schmitz > 08/26/21 9229
[2021-08-26 14:30] LABS: ALBUMIN 3.7 GM/DL (3.2-5.2); ALT/SGPT 33 U/L (12-78); BILIRUBIN,DIRECT < 0.1 MG/DL (0.0-0.2); BILIRUBIN,TOTAL 0.5 MG/DL (0.2-1.0); LIPASE 153 U/L (73-393); TOTAL PROTEIN 6.9 GM/DL (6.4-8.2)
--- NOTE | 2021-08-26 15:15 | REP ---
INDICATION: right groin/testicle pain COMPARISON: None. TECHNIQUE: Morris scale and color Doppler evaluation using linear and curved array transducer with color Doppler evaluation. FINDINGS: The testicles and epididymi are relatively normal in contour, size, echogenicity, vascularity and overall appearance. Incidental 2 mm epididymal head cysts noted bilaterally. There is no evidence for intratesticular mass lesion, infectious/inflammatory process, or torsion. No obvious hydroceles or varicoceles are identified. Right testicle measures 4.7 x 1.6 x 3.3 cm. Left testicle measures 4.3 x 2.1 x 2.9 cm. IMPRESSION: Essentially normal scrotal ultrasound. <Electronically signed by Mynor Schmitz > 08/26/21 1059
[2021-08-26 15:35] VITALS: BP 147/84
== END 2021-08-26 15:37 | disposition home or self-care (01) ==
LOC: M ED 11:44
DX: R10.31 Right lower quadrant pain (principal); N50.819 Testicular pain, unspecified; J45.909 Unspecified asthma, uncomplicated; G43.909 Migraine, unspecified, not intractable, without status migrainosus; M54.9 Dorsalgia, unspecified; M19.90 Unspecified osteoarthritis, unspecified site; F41.9 Anxiety disorder, unspecified; F32.9 Major depressive disorder, single episode, unspecified; Z79.1 Long term (current) use of non-steroidal anti-inflammatories (NSAID); Z88.0 Allergy status to penicillin; Z88.1 Allergy status to other antibiotic agents
CPT/HCPCS: 74177; 76870; 80047; 80076; 81001; 83690; 85025; 93976; 99284; Q9967

== ENCOUNTER → 2021-08-31 | Outpatient (CLI) | payer OTHER ==
[~2021-08-31] MED LIST changes: +KETO10TAB PO
--- NOTE | 2021-08-31 08:45 | REP ---
INDICATION: RLQ PAIN COMPARISON: None. TECHNIQUE: Directed ultrasound examination using linear high-frequency transducer FINDINGS: Directed ultrasound examination of the right groin demonstrates normal inguinal canal without evidence for hernia. No abnormal fluid collection or mass lesion. IMPRESSION: Normal directed ultrasound examination of the right groin. <Electronically signed by Mynor Schmitz > 08/31/21 0899
== END ==
LOC: M WHC 07:33
PROVIDERS: ATTEND Student in an Organized Health Care Education/Training Program
DX: R10.12 Left upper quadrant pain (principal)

== ENCOUNTER → 2021-09-22 | Outpatient (CLI) | payer OTHER ==
--- NOTE | 2021-09-22 15:20 | REP ---
INDICATION: RLQ PAIN. COMPARISON: 08/31/2021 TECHNIQUE: Real-time sonographic evaluation of the right lower quadrant and right inguinal region FINDINGS: There are no sonographic abnormalities. There are no cystic or solid masses. There is no ultrasonographic evidence of a hernia. The left inguinal canal was ultrasonographically evaluated for comparison. The right and left inguinal regions are symmetric. IMPRESSION: No ultrasonographic abnormalities are identified. There is no significant change compared to the prior exam. <Electronically signed by Lucio Sparks > 09/22/21 0020
== END ==
LOC: M RAD 14:03
PROVIDERS: ATTEND Student in an Organized Health Care Education/Training Program
DX: R10.31 Right lower quadrant pain (principal)

== ENCOUNTER → 2021-10-14 | Outpatient (CLI) | payer OTHER | LOC: M LABSMTC 10:54 | PROVIDERS: ATTEND Anesthesiology | DX: Z01.812 Encounter for preprocedural laboratory examination (principal); Z20.822 Contact with and (suspected) exposure to COVID-19 ==

== ENCOUNTER 2021-10-19 10:44 | Day surgery (SDC) | payer OTHER ==
[~2021-10-19] VITALS: Ht 180.3 cm; Wt 76.2 kg
[~2021-10-19 10:44] MED LIST changes: +NS 1,000 ML IV ONE
--- OUTSIDE RECORDS SUMMARY | 2021-10-19 10:49 | CCD ---
Author Author [facility] Organization [facility] Address Unknown Phone Unavailable Care Team Providers Care Custom Feed Mill Operator Name Role Phone Brandy Neri Unavailable PROBLEMS Type Condition ICD9-CM Code PII50-LB Code Onset Dates Condition S tatus W/U Status Risk SNOMED Code Notes Problem Adjustment disorder with anxiety F43.22 Active conf irmed 72492345 Problem Major depressive disorder, single episode, unspecified F32.9 Active confirmed 82349542 Problem Cigarette nicotine dependence without complication F17.210 Active confirmed 71388471 Problem Adjustment disorder, unspecified type F43.20 Ac tive confirmed 18710937 Problem Adjustment disorder with anxious mood F43.22 Ac tive confirmed 83742086 Problem Vitamin D deficiency E55.9 Active confirmed 65372193 Problem Cigarette nicotine dependence with withdrawal F17. 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 Active confirmed 676380038 Problem Current moderate episode of major depressive disorder, unspecified whether recurrent F32.1 Active confirmed 03090202 Problem Cigarette nicotine dependence with nicotine-induced di sorder F17.219 Active confirmed 50818285 Problem Primary osteoarthritis, 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 Ac tive confirmed 492725106892454 Problem Primary osteoarthritis, right shoulder M19.011 A ctive confirmed 466402675831743 Problem Atopic dermatitis and related condition L20.9 Active confirmed 46415914 Problem Scrotal lesion N50.9 Active confirmed 14070 000 ALLERGIES Allergen (clinical drug ingredient) Drug/Non Drug Allergy do cumented on EMR Reaction Allergy Type Onset Date Status Levaquin Confusion Drug Allergy Active Vicodin over dosed on before Drug Allergy Ac tive amoxicillin Amoxicillin([facility] Code:[address]-35) Nausea/Vomiting Drug Allergy Active ENCOUNTERS from 1964 to 2021-10-12 Encounter Location Date Provider Diagnosis [facility] [address] [phone] [place] [address] Sep, Brandy Halle Erectile dysfunction, unspecified erecti le dysfunction type N52.9 IMMUNIZATIONS Vaccine Route Administration Date Status TDAP [...] Education Language: Question Answer Notes Languages spoken: Turkmen Yarsanism: Question Answer Notes Yarsanism No restorationist beliefs that would impact health care. Sexual [...] FOR REFERRAL No Information VITAL SIGNS Weight 168 lbs Sep, Weight-kg 76.2 kg Sep, Height 71 in Sep, BMI 23.43 kg/m2 Sep, Heart Rate 84 /min Sep, Respiratory Rate 18 /min Sep, Temperature 97.5 degrees Fahrenheit Sep, Oximetry 100% Sep, Blood pressure systolic 128 mm Hg Sep, Blood pressure diastolic 70 mm Hg Sep, MEDICATIONS Medication SIG (Take, Route, Frequency, Duration) Notes Start Da te End Date Status Meloxicam 15 MG 1 tablet Orally Once a day a s needed for shoulder pain for 7 day(s) March, Not-Taking Betamethasone Dipropionate 0.05 % 1 application Field Foreman ally Once a day for 30 days March, Not-Taking Multivitamin Adult - as directed Orally Once a day for 90 day(s) Not-Taking Betamethasone Dipropionate 0.05 % 1 application Field Foreman ally Mix entire 50g tube into 1/2 jar of CeraVe cream, Apply twice daily for 14 days 30 A 2020 Not-Taking Ketorolac Tromethamine 10 MG 1 tablet with food or mil k as needed Orally every 6 hrs Not-Taking Viagra 100 MG 1 tablet as needed Orally as directed for 30 day (s) Jul, Active PROCEDURES No Information RESULTS No Results REASON FOR VISIT 2 month f/u ED MEDICAL (GENERAL) HISTORY Type Description Date Medical History Major depressive disorder Medical History Schizoaffective disorder Medical History History of opioid abuse Medical History Bilateral shoulder OA Medical History Eczematous dermatitis of skin (follows w [facility] dermatology) Surgical History R knee surgery orthoscopoc Surgical History L wrist tendon repair Surgical History R inguinal hernia repair 2017 Surgical History cyst removal 07/2021 Hospitalization History abdomen pain 08/2021 Goals Section No Information Health Concerns No Information MEDICAL EQUIPMENT No Information MENTAL STATUS No Information FUNCTIONAL STATUS No Information ASSESSMENTS Encounter Date Diagnosis Assessment Notes Treatment Notes Treatm ent Clinical Notes Sep, Erectile dysfunction, unspec ified erectile dysfunction type (ICD-10 - N52.9) PLAN OF TREATMENT Next Appt Details Provider Name:Domingo Barba, 2021-12-09 0 1:00:00 PM, [address] [facility], , [place], [address], Insurance Providers Payer Name Payer Address Payer Phone Insured Name Patient Relati onship to Insured Coverage Start Date Coverage End Date [facility] [address] [facility] [address] TRINITY MEJIA self
--- OUTSIDE RECORDS SUMMARY | 2021-10-19 10:49 | CCD ---
Author Author [facility] Organization [facility] Address Unknown Phone Unavailable Care Team Providers Care Patient Access Associate Name Role Phone Mulu Dash Unavailable PROBLEMS Type Condition ICD9-CM Code MRK07-AD Code Onset Dates Condition S tatus W/U Status Risk SNOMED Code Notes Problem Adjustment disorder with anxiety F43.22 Active conf irmed 59417866 Problem Major depressive disorder, single episode, unspecified F32.9 Active confirmed 29857191 Problem Cigarette nicotine dependence without complication F17.210 Active confirmed 60376597 Problem Adjustment disorder, unspecified type F43.20 Ac tive confirmed 16238475 Problem Adjustment disorder with anxious mood F43.22 Ac tive confirmed 11012815 Problem Vitamin D deficiency E55.9 Active confirmed 85645243 Problem Cigarette nicotine dependence with withdrawal F17. 213 Active confirmed 93597382 Problem Generalized anxiety disorder F41.1 Active confirme d 33054538 Problem Erectile dysfunction, unspecified erectile dysfunction typ e N52.9 Active confirmed 614483991 Problem Mood disorder F39 Active confirmed 116595 05 Problem Bipolar I disorder with depression F31.9 Activ e confirmed 13930786 Problem Erectile disorder, acquired, situational, mild F52 .21 Active confirmed 381078013481768 Problem Other chronic pain G89.29 Active confirmed 8 3315788 Problem Other post-procedural erectile dysfunction N52.39 Active confirmed 345501892 Problem Current moderate episode of major depressive disorder, unspecified whether recurrent F32.1 Active confirmed 75073900 Problem Cigarette nicotine dependence with nicotine-induced di sorder F17.219 Active confirmed 97345899 Problem Primary osteoarthritis, 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 Ac tive confirmed 446377023999731 Problem Primary osteoarthritis, right shoulder M19.011 A ctive confirmed 222339921508473 Problem Atopic dermatitis and related condition L20.9 Active confirmed 36419860 Problem Scrotal lesion N50.9 Active confirmed 61303 000 ALLERGIES Allergen (clinical drug ingredient) Drug/Non Drug Allergy do cumented on EMR Reaction Allergy Type Onset Date Status Levaquin Confusion Drug Allergy Active Vicodin over dosed on before Drug Allergy Ac tive amoxicillin Amoxicillin([facility] Code:[address]-76) Nausea/Vomiting Drug Allergy Active ENCOUNTERS from 1965 to 2021-08-30 Encounter Location Date Provider Diagnosis [place] [address] [facility] [phone] [place] [address] Aug, Mulu Ferreirai IMMUNIZATIONS Vaccine Route Administration Date Status TDAP [...] Education Language: Question Answer Notes Languages spoken: Korean Judaism: Question Answer Notes Judaism No mandaen beliefs that would impact health care. Sexual [...] Active Betamethasone Dipropionate 0.05 % 1 application Support Engineer ally Once a day for 30 days March, Not-Taking Meloxicam 15 MG 1 tablet Orally Once a day a s needed for shoulder pain for 7 day(s) March, Not-Taking Betamethasone Dipropionate 0.05 % 1 application Support Engineer ally Mix entire 50g tube into 1/2 jar of CeraVe cream, Apply twice daily for 14 days 30 A 2020 Not-Taking PROCEDURES No Information RESULTS No Results REASON FOR VISIT referral MEDICAL (GENERAL) HISTORY Type Description Date Medical History Major depressive disorder Medical History Schizoaffective disorder Medical History History of opioid abuse Medical History Bilateral shoulder OA Medical History Eczematous dermatitis of skin (follows w [facility] dermatology) Surgical History R knee surgery orthoscopoc Surgical History L wrist tendon repair Surgical History R inguinal hernia repair 2017 Surgical History cyst removal 07/2021 Goals Section No Information Health Concerns No Information MEDICAL EQUIPMENT No Information MENTAL STATUS No Information FUNCTIONAL STATUS No Information ASSESSMENTS No Information PLAN OF TREATMENT Medication Medication Name Sig Start Date Stop Date Viagra 100 MG 1 tablet as needed Orally as directed for 30 day (s) Jul, Next Appt Details Provider Name:Mulu Ferreirai, 2021-09-06 02: 45:00 PM, [address] [facility], , [place], [address], Provider Name:Brandy Neri, 2021-09-14 0 01:00:00 PM, [address], , [place], [address], Insurance Providers Payer Name Payer Address Payer Phone Insured Name Patient Relati onship to Insured Coverage Start Date Coverage End Date [facility] COMMUNITY PLAN [facility] [address] [facility] [address] TRIN[place] MEJIA self
--- OUTSIDE RECORDS SUMMARY | 2021-10-19 10:49 | CCD | Continuity of Care Document ---
Author Author Carlos Eduardo [facility]CKENZIE [facility] Organization Unknown Address [address] [facility] [facility] [address] [place] [address] Phone [phone] Care Team Providers Care Reviewer Sales Name Role Phone Sharla Louis M.D. AUTM [phone] Álvaro Coy M.D. AUTM [phone] Problems Description No Information Available Social History Type Date Description Comments Sex Unknown ETOH Use Denies alcohol use Recreational Drug Use Denies Drug Use Tobacco Use Start: Unknown End: Unknown Patient is a former smoker QUIT IN 2019 Allergies and adverse reactions Active Allergies Criticality Reaction | Severity Comments Date Levaquin Unable to assess criticality FACIAL NUMBNESS 03/12/2019 Augmentin Unable to assess criticality Abdominal pain 03/12/2019 Ceftin Unable to assess criticality HYPER, CONFUSED 03/12/2019 Topamax Unable to assess criticality Nausea 05/09/2021 Medications Description No Active Medications Immunizations Description No Information Available Vital Signs Date Vital Result Comment 09/13/2021 9:50am BP Systolic 114 mmHg BP Diastolic 75 mmHg Body Temperature 98.2 F Height 71 inches 5'11" Weight 167.00 lb BMI (Body Mass Index) 23.3 kg/m2 [place] Body Weight 172 lb Weight 75.751 kg BSA (Body Surface Area) 1.95 m2 05/09/2021 1:46pm Body Temperature 96.8 F Results Description No Information Available Procedures Date Code Description Status 05/09/2021 12175 Office/Outpatient New Moderate M DM 45-59 Minutes Completed 05/09/2021 89367 Inject/Drain Arthrocentesis Lia r Joint/Bursa/Ganglion Cyst Completed Medical Devices Description No Information Available Encounters Type Date Location Provider Dx Diagnosis Office Visit 05/09/2021 1:45p [facility] Akhil Rodriguez MD M19.011 Primary osteoarthritis, right shoulder Assessments Date Code Description Provider 09/13/2021 R10.31 Right lower quadrant pain IVÁN Thomas 09/13/2021 K57.30 Diverticulosis of la rge intestine without perforation or abscess without bleeding IVÁN Thomas 05/09/2021 M19.011 Primary osteoarthritis, right sh oulder Akhil Rodriguez MD Plan of Treatment No Information Available Functional Status Description No Information Available Mental Status Description No Information Available Referrals Refer to Reason for Referral Status Appt Date Jerzy Moran D.O. SCHEDULE COLONOSCOPY Scheduled [address] [facility] [address] [place], [place] [address] [phone] Ryan Gibbs M.D. Z12.11-ENCOUNTER FOR SCREENI NG FOR MALIGNANT NEOPLASM OF COLON Scheduled 05/31/2021 [facility], Gastroenterology [address] [facility], [address] [place] [address] [phone]
--- OUTSIDE RECORDS SUMMARY | 2021-10-19 10:49 | CCD | Continuity of Care Document ---
Author Author Carlos Eduardo MCKENZIE PA Organization Unknown Address [address] [facility] [address] [place] [address] Phone [phone] Care Team Providers Care Brewing Technician Name Role Phone Sharla Louis M.D. AUTM [phone] Álvaro Coy M.D. AUTM [phone] Problems Description No Information Available Social History [...] lb BMI (Body Mass Index) 23.3 kg/m2 [place] Body Weight 172 lb Weight 75.751 kg BSA (Body Surface Area) 1.95 m2 05/09/2021 1:46pm Body Temperature 96.8 F Results Description No Information Available Procedures Date Code Description Status 09/13/2021 42879 Office/Outpatient Established Lo w MDM 20-29 Min Completed 05/09/2021 14907 Office/Outpatient New Moderate M DM 45-59 Minutes Completed 05/09/2021 25388 Inject/Drain Arthrocentesis Lia r Joint/Bursa/Ganglion Cyst Completed Medical Devices Description No Information Available Encounters Type Date Location Provider Dx Diagnosis Office Visit 09/13/2021 9:45a [facility] IVÁN Padilla R10.31 Right lower quadrant pain K57.30 Dvrtclos of lg int w/o perfo ration or abscess w/o bleeding Office Visit 05/09/2021 1:45p [facility] Akhil Rodriguez MD M19.011 Primary osteoarthritis, right shoulder Assessments Date Code Description Provider 09/13/2021 R10.31 Right lower quadrant pain IVÁN Thomas 09/13/2021 K57.30 Diverticulosis of la rge intestine without perforation or abscess without bleeding IVÁN Thomas 05/09/2021 M19.011 Primary osteoarthritis, right sh oulder Akhil Rodriguez MD Plan of Treatment Future Appointment(s):* 11/01/2021 1:00 pm - IVÁN Thomas at [facility] * 10/19/2021 12:00 pm - Jerzy Moran DO at [facility] 09/13/2021 - IVÁN Thomas* R10.31 Right lower quadrant pain * K57.30 Diverticulosis of large intestine without perforation or abscess without bleeding Functional Status Description No Information Available Mental Status Description No Information Available Referrals Refer to Dr Reason for Referral Status Appt Date eJrzy Moran D.OAnabel SCHEDULE COLONOSCOPY Scheduled [address] [facility] [facility] [address] [place], [place] [address] [phone] Ryan Gibbs M.D. Z12.11-ENCOUNTER FOR SCREENI NG FOR MALIGNANT NEOPLASM OF COLON Scheduled 05/31/2021 [facility], Gastroenterology [address], [address] [place] [address] [phone]
--- OUTSIDE RECORDS SUMMARY | 2021-10-19 10:49 | CCD ---
Author Author [facility] Organization [facility] Address Unknown Phone Unavailable Care Team Providers Care Tool Storage Attendant Name Role Phone Mulu Dash Unavailable PROBLEMS Type Condition ICD9-CM Code END43-UV Code Onset Dates Condition S tatus W/U Status Risk SNOMED Code Notes Problem Adjustment disorder with anxiety F43.22 Active conf irmed 92377006 Problem Major depressive disorder, single episode, unspecified F32.9 Active confirmed 20289458 Problem Cigarette nicotine dependence without complication F17.210 Active confirmed 14132064 Problem Adjustment disorder, unspecified type F43.20 Ac tive confirmed 98801769 Problem Adjustment disorder with anxious mood F43.22 Ac tive confirmed 18344606 Problem Vitamin D deficiency E55.9 Active confirmed 72198037 Problem Cigarette nicotine dependence with withdrawal F17. 213 Active confirmed 76436920 Problem Generalized anxiety disorder F41.1 Active confirme d 70675832 Problem Erectile dysfunction, unspecified erectile dysfunction typ e N52.9 Active confirmed 148150495 Problem Mood disorder F39 Active confirmed 962275 05 Problem Bipolar I disorder with depression F31.9 Activ e confirmed 54543065 Problem Erectile disorder, acquired, situational, mild F52 .21 Active confirmed 083849421154100 Problem Other chronic pain G89.29 Active confirmed 8 3978917 Problem Other post-procedural erectile dysfunction N52.39 Active confirmed 838310445 Problem Current moderate episode of major depressive disorder, unspecified whether recurrent F32.1 Active confirmed 62416139 Problem Cigarette nicotine dependence with nicotine-induced di sorder F17.219 Active confirmed 84227898 Problem Primary osteoarthritis, 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 Ac tive confirmed 119392855753282 Problem Primary osteoarthritis, right shoulder M19.011 A ctive confirmed 962245790787205 Problem Atopic dermatitis and related condition L20.9 Active confirmed 12865959 Problem Scrotal lesion N50.9 Active confirmed 97336 000 ALLERGIES Allergen (clinical drug ingredient) Drug/Non Drug Allergy do cumented on EMR Reaction Allergy Type Onset Date Status Levaquin Confusion Drug Allergy Active Vicodin over dosed on before Drug Allergy Ac tive amoxicillin Amoxicillin([facility] Code:[address]-70) Nausea/Vomiting Drug Allergy Active ENCOUNTERS from 1965 to 2021-09-08 Encounter Location Date Provider Diagnosis [address] [facility] [phone] [place] [address] Aug, Mulu Ferreirai IMMUNIZATIONS Vaccine Route Administration [...] Education Language: Question Answer Notes Languages spoken: Vietnamese Rastafari: Question Answer Notes Rastafari No gnosticism beliefs that would impact health care. Sexual [...] Notes Start Da te End Date Status Viagra 100 MG 1 tablet as needed Orally as directed for 30 day (s) Jul, Not-Taking Meloxicam 15 MG 1 tablet Orally Once a day a s needed for shoulder pain for 7 day(s) March, Not-Taking Multivitamin Adult - as directed Orally Once a day for 90 day(s) Not-Taking Betamethasone Dipropionate 0.05 % 1 application Manager Plumbing ally Mix entire 50g tube into 1/2 jar of CeraVe cream, Apply twice daily for 14 days 2020 Not-Taking Betamethasone Dipropionate 0.05 % 1 application Manager Plumbing ally Once a day for 30 days March, Not-Taking Ketorolac Tromethamine 10 MG 1 tablet with food or mil k as needed Orally every 6 hrs Not-Taking PROCEDURES No Information RESULTS No Results REASON FOR VISIT mTCM 7 [facility] d/c 08/26 Groin pain MEDICAL (GENERAL) HISTORY Type Description Date Medical History Major depressive disorder Medical History Schizoaffective disorder Medical History History of opioid abuse Medical History Bilateral shoulder OA Medical History Eczematous dermatitis of skin (follows w [facility] dermatology) Surgical History R knee surgery orthoscopoc Surgical History L wrist tendon repair Surgical History R inguinal hernia repair 2017 Surgical History cyst removal 07/2021 Hospitalization History abdomen pain 08/2021 Goals Section No Information Health Concerns No Information MEDICAL EQUIPMENT No Information MENTAL STATUS No Information FUNCTIONAL STATUS No Information ASSESSMENTS Encounter Date Diagnosis Assessment Notes Treatment Notes Treatm ent Clinical Notes Aug, Other [id number] @ 085 0: Pediatric Psychiatrist called pt. Pt reports he had an ultrasound today and has a colonoscopy set up. Pt reports he is still having some pain especially when laying or palpating right side. Pt reports he is eating and drinking without difficulty. Pt reports pain medication does seem to be helping. Pt does not have any questions or concerns at this time but has been advised to contact the clinic with any changes or worsening of symptoms. Alana Carrera RN. PLAN OF TREATMENT Next Appt Details Provider Name:Brandy Neri, 2021-09-14 0 01:00:00 PM, [address], , [place], [address], Provider Name:Domingo Barba, 2021-12-09 0 1:00:00 PM, [address] [facility] [address], , [place], [address], Insurance Providers Payer Name Payer Address Payer Phone Insured Name Patient Relati onship to Insured Coverage Start Date Coverage End Date [facility] [address] [facility] [address] [place] MEJIA self
--- OUTSIDE RECORDS SUMMARY | 2021-10-19 10:49 | CCD ---
Author Author [facility] Organization [facility] Address Unknown Phone Unavailable Care Team Providers Care Precision Instrument Maker And Repairer Name Role Phone Mulu Dash Unavailable PROBLEMS Type Condition ICD9-CM Code [id number] Code Onset Dates Condition S tatus W/U Status Risk SNOMED Code Notes Problem Adjustment disorder with anxiety F43.22 Active conf irmed 77761933 Problem Major depressive disorder, single episode, unspecified F32.9 Active confirmed 93708881 Problem Cigarette nicotine dependence without complication F17.210 Active confirmed 95459143 Problem Adjustment disorder, unspecified type F43.20 Ac tive confirmed 02898966 Problem Adjustment disorder with anxious mood F43.22 Ac tive confirmed 36175561 Problem Vitamin D deficiency E55.9 Active confirmed 30840910 Problem Cigarette nicotine dependence with withdrawal F17. 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 Active confirmed 895530270 Problem Current moderate episode of major depressive disorder, unspecified whether recurrent F32.1 Active confirmed 30883071 Problem Cigarette nicotine dependence with nicotine-induced di sorder F17.219 Active confirmed 42875962 Problem Primary osteoarthritis, 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 Ac tive confirmed 533415562837712 Problem Primary osteoarthritis, right shoulder M19.011 A ctive confirmed 213421632297316 Problem Atopic dermatitis and related condition L20.9 Active confirmed 55814543 Problem Scrotal lesion N50.9 Active confirmed 60670 000 ALLERGIES Allergen (clinical drug ingredient) Drug/Non Drug Allergy do cumented on EMR Reaction Allergy Type Onset Date Status Levaquin Confusion Drug Allergy Active Vicodin over dosed on before Drug Allergy Ac tive amoxicillin Amoxicillin([facility] Code:[address]-42) Nausea/Vomiting Drug Allergy Active ENCOUNTERS from 1965 to 2021-09-08 Encounter Location Date Provider Diagnosis [address] [facility] [phone] [place] [address] Aug, Mulu Ferreirai IMMUNIZATIONS Vaccine Route Administration [...] Education Language: Question Answer Notes Languages spoken: Frisian Sikhism: Question Answer Notes Sikhism No mormon beliefs that would impact health care. Sexual [...] Not-Taking Betamethasone Dipropionate 0.05 % 1 application Frame Maker ally Mix entire 50g tube into 1/2 jar of CeraVe cream, Apply twice daily for 14 days 2020 Not-Taking Betamethasone Dipropionate 0.05 % 1 application Frame Maker ally Once a day for 30 days March, Not-Taking Ketorolac Tromethamine 10 MG 1 tablet with food or mil k as needed Orally every 6 hrs Not-Taking PROCEDURES No Information RESULTS No Results REASON FOR VISIT Sildenafil citrate 20mg tab MEDICAL (GENERAL) HISTORY Type Description Date Medical History Major depressive disorder Medical History Schizoaffective disorder Medical History History of opioid abuse Medical History Bilateral shoulder OA Medical History Eczematous dermatitis of skin (follows w [facility] dermatology) Surgical History R knee surgery orthoscopoc Surgical History L wrist tendon repair Surgical History R inguinal hernia repair 2016 Surgical History cyst removal 07/2021 Hospitalization History abdomen pain 08/2021 Goals Section No Information Health Concerns No Information MEDICAL EQUIPMENT No Information MENTAL STATUS No Information FUNCTIONAL STATUS No Information ASSESSMENTS No Information PLAN OF TREATMENT Next Appt Details Provider Name:Brandy Neri, 2021-09-14 0 01:00:00 PM, [address], , [place], [address], Provider Name:Domingo Barba, 2021-12-09 0 1:00:00 PM, [address] [facility], , [place], [address], Insurance Providers Payer Name Payer Address Payer Phone Insured Name Patient Relati onship to Insured Coverage Start Date Coverage End Date [facility] [address] [facility] [address] [place] MEJIA self
--- OUTSIDE RECORDS SUMMARY | 2021-10-19 10:49 | CCD ---
Author Author [facility] Organization [facility] Address Unknown Phone Unavailable Care Team Providers Care Traffic And Transport Planner Name Role Phone Maring, Zack PA Unavailable [...] Unavailable Maring, Zack PA Unavailable Unavailable Nick Rodirguez MD Unavailable Unavailable Nick Rodriguez MD Unavailable Unavailable Nick Rodriguez MD Unavailable Unavailable Nick Rodriguez MD Unavailable Unavailable Nick Rodriguez MD Unavailable Unavailable Nick Rodriguez MD Unavailable Unavailable Nick Rodriguez MD Unavailable Unavailable Nick Rodriguez MD Unavailable Unavailable Nick Rodriguez MD Unavailable Unavailable Nick Rodriguez MD Unavailable Unavailable Nick Rodriguez MD Unavailable Unavailable Nick Rodriguez MD Unavailable Unavailable Mollison, Nick Landaverde MD Unavailable Unavailable Mollison, Nick Landaverde MD Unavailable Unavailable Mollison, Nick Landaverde MD Unavailable Unavailable Mollison, Nick Landaverde MD Unavailable Unavailable Mollison, Nick Landaverde MD Unavailable Unavailable Mollison, Nick Landaverde MD Unavailable Unavailable Mollison, Nick Landaverde MD Unavailable Unavailable Mollison, Nick Landaverde MD Unavailable Unavailable Mollison, Nick Landaverde MD Unavailable Unavailable Mollison, Nick Landaverde MD Unavailable Unavailable Mollison, Nick Landaverde MD Unavailable Unavailable Mollison, Nick Landaverde MD Unavailable Unavailable Mollison, Nick Landaverde MD Unavailable Unavailable Mollison, Nick Landaverde MD Unavailable Unavailable Mollison, Nick Landaverde MD Unavailable Unavailable Mollison, Nick Landaverde MD Unavailable Unavailable Mollison, Nick Landaverde MD Unavailable Unavailable Mollison, Nick Landaverde MD Unavailable Unavailable Mollison, Nick Landaverde MD Unavailable Unavailable Meng, L Elaina RPA Unavailable Unavailable Meng, L Elaina RPA Unavailable Unavailable Meng, L Elaina RPA Unavailable Unavailable Meng, L Elaina RPA Unavailable Unavailable Meng, L Elaian RPA Unavailable Unavailable Meng, L Elaina RPA Unavailable Unavailable Meng, L Elaina RPA Unavailable Unavailable Meng, L Elaina RPA Unavailable Unavailable Meng, L Elaina RPA Unavailable Unavailable Meng, L Elaina RPA Unavailable Unavailable Mneg, L Elaina RPA Unavailable Unavailable Meng, L Elaina RPA Unavailable Unavailable Meng, L Elaina RPA Unavailable Unavailable Meng, L Elaina RPA Unavailable Unavailable Meng, L Elaina RPA Unavailable Unavailable Meng, L Elaina RPA Unavailable Unavailable Meng, L Elaina RPA Unavailable Unavailable Meng, L Elaina RPA Unavailable Unavailable Meng, L Elaina RPA Unavailable Unavailable Meng, L Elaina RPA Unavailable Unavailable Meng, L Elaina RPA Unavailable Unavailable Meng, L Elaina RPA Unavailable Unavailable Meng, L Elaina RPA Unavailable Unavailable Meng, L Elaina RPA Unavailable Unavailable Meng, L Elaina RPA Unavailable Unavailable Meng, L Elaina RPA Unavailable Unavailable Meng, L Elaina RPA Unavailable Unavailable Meng, L Elaina RPA Unavailable Unavailable Meng, L Elaina RPA Unavailable Unavailable Meng, L Elaina RPA Unavailable Unavailable Meng, L Elaina RPA Unavailable Unavailable Meng, L Elaina RPA Unavailable Unavailable Re-disclosure Warning The records that [...] is protected by Article 27-F of the [facility] Public Health law. If you continue you may have access to information: Regarding HIV / AIDS; Provided by facilities licensed or operated by the [facility] Office of Mental Health; or Provided by the [facility] Office for People With Developmental Disabilities. If such information is present, then the following [facility] mandated warning applies: This information has been [...] law may result in a fine or residential sentence or both. A general authorization for [...] Unknown Problem MEDENT ([facility]) Encounters Encounter Providers Location Date Indications Data Source(s ) [place] [address] [facility] [address] 10/11/2021 12:00:00 AM EST eCW1 ([facility]) Outpatient Attender: Elaina Pierre/Karuna/Jennifer mccray 09/13/2021 09:45:00 AM EDT MEDENT ([facility]) [place] [address] [facility] [address] 09/07/2021 12:00:00 AM EDT eCW1 ([facility]) [place] [address] [facility] [address] 08/29/2021 12:00:00 AM EDT eCW1 ([facility]) [place] [address] [facility] [address] 08/25/2021 12:00:00 AM EDT eCW1 ([facility]) Outpatient Attender: Zack MINOR 08/24/20 10:56:45 AM EDT - 08/24/2021 11:55:17 AM EDT DocuTap ([facility] ) [place] [address] [facility] [address] 08/10/2021 12:00:00 AM EDT eCW1 ([facility]) [place] [address] [facility] [address] 08/08/2021 12:00:00 AM EDT eCW1 ([facility]) [place] [address] [facility] [address] 07/29/2021 12:00:00 AM EDT eCW1 ([facility]) [place] [address] [facility] [address] 07/13/2021 12:00:00 AM EDT eCW1 ([facility]) [place] [address] [facility] [address] 07/07/2021 12:00:00 AM EDT eCW1 ([facility]) [place] [address] [facility] [address] 2021 12:00:00 AM EDT eCW1 ([facility]) [place] [address] [facility] [address] 06/10/2021 12:00:00 AM EDT eCW1 ([facility]) [place] [address] [facility] [address] 06/07/2021 12:00:00 AM EDT eCW1 ([facility]) Outpatient Attender: Akhil Pierre/Karuna/Subhash/Re indl 05/09/2021 01:45:00 PM EDT MEDENT ([facility]) [place] [address] [facility] [address] 04/27/2021 12:00:00 AM EDT eCW1 ([facility]) [place] [address] [facility] [address] 04/26/2021 12:00:00 AM EDT eCW1 ([facility]) [place] [address] [facility] [address] 04/25/2021 12:00:00 AM EDT eCW1 ([facility]) [place] [address] [facility] [address] 04/25/2021 12:00:00 AM EDT eCW1 ([facility]) [place] [address] [facility] [address] 03/25/2021 12:00:00 AM EDT eCW1 ([facility]) [place] [address] [facility] [address] 03/25/2021 12:00:00 AM EDT eCW1 ([facility]) [place] [address] [facility] [address] 03/17/2021 12:00:00 AM EDT eCW1 ([facility]) [place] [address] [facility] [address] 03/16/2021 12:00:00 AM EDT eCW1 ([facility]) [place] [address] [facility] [address] 03/11/2021 12:00:00 AM EDT eCW1 ([facility]) [place] [address] [facility] [address] 03/08/2021 12:00:00 AM EDT eCW1 ([facility]) [place] [address] [facility] [address] 12/28/2020 12:00:00 AM EST eCW1 ([facility]) [place] [address] [facility] [address] 12/28/2020 12:00:00 AM EST eCW1 ([facility]) [place] [address] [facility] [address] 12/24/2020 12:00:00 AM EST eCW1 ([facility]) Immunizations Vaccine Date Status Description Data Source(s) COVID-19 VACCINE Pfizer 04/29/2021 12:00:00 AM EDT completed [facility] Vaccine Series Complete: YESThis Data wa s Submitted to [facility] Via 360[facility]. COVID-19 VACC, MRNA(PFIZER)/PF 04/29/2021 12:00:00 AM EDT completed [facility] COVID-19 VACC, MRNA(PFIZER)/PF 04/08/2021 12:00:00 AM EDT completed [facility] COVID-19 VACCINE Pfizer 04/08/2021 12:00:00 AM EDT completed [facility] Vaccine Series Complete: NOThis Data was Submitted to [facility] Via 360T. Medications Medication Brand Name Start Date Product Form Dose Route Admi nistrative Instructions Pharmacy Instructions Status Indications Reaction Description Data Source(s) 20 mg 09/12/2021 12:00:00 AM EDT tablet 30 TAKE ONE TABLET BY MOUTH EVERY DAY TAKE ONE TABLET BY MOUTH EVERY DAY SOLD: 09/12/2021 [facility] 10 mg 08/25/2021 12:00:00 AM EDT tablet 20 TAKE ONE TABLET BY MOUTH EVERY 6 HOURS FOR 5 DAYS TAKE ONE TABLET BY MOUTH EVERY 6 HOURS FOR 5 DAYS SOLD : 08/25/2021 [facility] sildenafil 100 MG Oral Tablet [Viagra] Viagra 100 MG Viagra 100 MG 08/10/2021 12:00:00 AM EDT 1.0 {tablet_as_needed} active Viagra 100 MG eCW1 ([facility]) sildenafil 100 MG Oral Tablet [Viagra] Viagra 100 MG Viagra 100 MG 08/10/2021 12:00:00 AM EDT 1.0 {tablet_as_needed} suspended Viagra 100 MG eCW1 ([facility]) sildenafil 100 MG Oral Tablet [Viagra] Viagra 100 MG Viagra 100 MG 08/10/2021 12:00:00 AM EDT 1.0 {tablet_as_needed} active Viagra 100 MG eCW1 ([facility]) sildenafil 100 MG Oral Tablet [Viagra] Viagra 100 MG Viagra 100 MG 08/10/2021 12:00:00 AM EDT 1.0 {tablet_as_needed} active Viagra 100 MG eCW1 ([facility]) sildenafil 100 MG Oral Tablet [Viagra] Viagra 100 MG Viagra 100 MG 08/10/2021 12:00:00 AM EDT 1.0 {tablet_as_needed} suspended Viagra 100 MG eCW1 ([facility]) 15 mg 03/26/2021 12:00:00 AM [...] {tablet} suspended Meloxica m 15 MG eCW1 ([facility]) meloxicam 15 MG Oral Tablet Meloxicam 15 MG Meloxicam 15 MG 03/25/2021 12:00:00 AM EDT 1.0 {tablet} suspended Meloxica m 15 MG eCW1 ([facility]) meloxicam 15 MG Oral Tablet Meloxicam 15 MG Meloxicam 15 MG 03/25/2021 12:00:00 AM EDT 1.0 {tablet} active Meloxicam 1 5 MG eCW1 ([facility]) meloxicam 15 MG Oral Tablet Meloxicam 15 MG Meloxicam 15 MG 03/25/2021 12:00:00 AM EDT 1.0 {tablet} suspended Meloxica m 15 MG eCW1 ([facility]) meloxicam 15 MG Oral Tablet Meloxicam 15 MG Meloxicam 15 MG 03/25/2021 12:00:00 AM EDT 1.0 {tablet} suspended Meloxica m 15 MG eCW1 ([facility]) meloxicam 15 MG Oral Tablet Meloxicam 15 MG Meloxicam 15 MG 03/25/2021 12:00:00 AM EDT 1.0 {tablet} suspended Meloxica m 15 MG eCW1 ([facility]) meloxicam 15 MG Oral Tablet Meloxicam 15 MG Meloxicam 15 MG 03/25/2021 12:00:00 AM EDT 1.0 {tablet} suspended Meloxica m 15 MG eCW1 ([facility]) meloxicam 15 MG Oral Tablet Meloxicam 15 MG Meloxicam 15 MG 03/25/2021 12:00:00 AM EDT 1.0 {tablet} suspended Meloxica m 15 MG eCW1 ([facility]) meloxicam 15 MG Oral Tablet Meloxicam 15 MG Meloxicam 15 MG 03/25/2021 12:00:00 AM EDT 1.0 {tablet} suspended Meloxica m 15 MG eCW1 ([facility]) meloxicam 15 MG Oral Tablet Meloxicam 15 MG Meloxicam 15 MG 03/25/2021 12:00:00 AM EDT 1.0 {tablet} suspended Meloxica m 15 MG eCW1 ([facility]) meloxicam 15 MG Oral Tablet Meloxicam 15 MG Meloxicam 15 MG 03/25/2021 12:00:00 AM EDT 1.0 {tablet} suspended Meloxica m 15 MG eCW1 ([facility]) meloxicam 15 MG Oral Tablet Meloxicam 15 MG Meloxicam 15 MG 03/25/2021 12:00:00 AM EDT 1.0 {tablet} suspended Meloxica m 15 MG eCW1 ([facility]) meloxicam 15 MG Oral Tablet Meloxicam 15 MG Meloxicam 15 MG 03/25/2021 12:00:00 AM EDT 1.0 {tablet} suspended Meloxica m 15 MG eCW1 ([facility]) meloxicam 15 MG Oral Tablet Meloxicam 15 MG Meloxicam 15 MG 03/25/2021 12:00:00 AM EDT 1.0 {tablet} suspended Meloxica m 15 MG eCW1 ([facility]) meloxicam 15 MG Oral Tablet Meloxicam 15 MG Meloxicam 15 MG 03/25/2021 12:00:00 AM EDT 1.0 {tablet} suspended Meloxica m 15 MG eCW1 ([facility]) meloxicam 15 MG Oral Tablet Meloxicam 15 MG Meloxicam 15 MG 03/25/2021 12:00:00 AM EDT 1.0 {tablet} suspended Meloxica m 15 MG eCW1 ([facility]) meloxicam 15 MG Oral Tablet Meloxicam 15 MG Meloxicam 15 MG 03/25/2021 12:00:00 AM EDT 1.0 {tablet} suspended Meloxica m 15 MG eCW1 ([facility]) meloxicam 15 MG Oral Tablet Meloxicam 15 MG Meloxicam 15 MG 03/25/2021 12:00:00 AM EDT 1.0 {tablet} active eCW1 ([facility]) 0.05 % 03/17/2021 12:00:00 AM EDT cream 45 APPLY TO AFFECTED AREA(S) ONCE DAILY APPLY TO AFFECTED AREA(S) ONCE DAILY SOLD: 03/18/2021 [facility] Betamethasone 0.5 MG/ML Topical Cream Betamethasone Di propionate 0.05 % Betamethasone Dipropionate 0.05 % 03/14/2021 12:00:00 AM EDT 1.0 {application} suspended Betamethasone Dipropio satish 0.05 % eCW1 ([facility]) Betamethasone 0.5 MG/ML Topical Cream Betamethasone Di propionate 0.05 % Betamethasone Dipropionate 0.05 % 03/14/2021 12:00:00 AM EDT 1.0 {application} active Betamethasone Dipropiona te 0.05 % eCW1 ([facility]) Betamethasone 0.5 MG/ML Topical Cream Betamethasone Di propionate 0.05 % Betamethasone Dipropionate 0.05 % 03/14/2021 12:00:00 AM EDT 1.0 {application} suspended Betamethasone Dipropio satish 0.05 % eCW1 ([facility]) Betamethasone 0.5 MG/ML Topical Cream Betamethasone Di propionate 0.05 % Betamethasone Dipropionate 0.05 % 03/14/2021 12:00:00 AM EDT 1.0 {application} suspended Betamethasone Dipropio satish 0.05 % eCW1 ([facility]) Betamethasone 0.5 MG/ML Topical Cream Betamethasone Di propionate 0.05 % Betamethasone Dipropionate 0.05 % 03/14/2021 12:00:00 AM EDT 1.0 {application} suspended Betamethasone Dipropio satish 0.05 % eCW1 ([facility]) Betamethasone 0.5 MG/ML Topical Cream Betamethasone Di propionate 0.05 % Betamethasone Dipropionate 0.05 % 03/14/2021 12:00:00 AM EDT 1.0 {application} active Betamethasone Dipropiona te 0.05 % eCW1 ([facility]) Betamethasone 0.5 MG/ML Topical Cream Betamethasone Di propionate 0.05 % Betamethasone Dipropionate 0.05 % 03/14/2021 12:00:00 AM EDT 1.0 {application} suspended eCW1 ([facility]) Betamethasone 0.5 MG/ML Topical Cream Betamethasone Di propionate 0.05 % Betamethasone Dipropionate 0.05 % 03/14/2021 12:00:00 AM EDT 1.0 {application} suspended Betamethasone Dipropio satish 0.05 % eCW1 ([facility]) Betamethasone 0.5 MG/ML Topical Cream Betamethasone Di propionate 0.05 % Betamethasone Dipropionate 0.05 % 03/14/2021 12:00:00 AM EDT 1.0 {application} suspended Betamethasone Dipropio satish 0.05 % eCW1 ([facility]) Betamethasone 0.5 MG/ML Topical Cream Betamethasone Di propionate 0.05 % Betamethasone Dipropionate 0.05 % 03/14/2021 12:00:00 AM EDT 1.0 {application} suspended Betamethasone Dipropio satish 0.05 % eCW1 ([facility]) Betamethasone 0.5 MG/ML Topical Cream Betamethasone Di propionate 0.05 % Betamethasone Dipropionate 0.05 % 03/14/2021 12:00:00 AM EDT 1.0 {application} active Betamethasone Dipropiona te 0.05 % eCW1 ([facility]) Betamethasone 0.5 MG/ML Topical Cream Betamethasone Di propionate 0.05 % Betamethasone Dipropionate 0.05 % 03/14/2021 12:00:00 AM EDT 1.0 {application} suspended Betamethasone Dipropio satish 0.05 % eCW1 ([facility]) Betamethasone 0.5 MG/ML Topical Cream Betamethasone Di propionate 0.05 % Betamethasone Dipropionate 0.05 % 03/14/2021 12:00:00 AM EDT 1.0 {application} suspended Betamethasone Dipropio satish 0.05 % eCW1 ([facility]) Betamethasone 0.5 MG/ML Topical Cream Betamethasone Di propionate 0.05 % Betamethasone Dipropionate 0.05 % 03/14/2021 12:00:00 AM EDT 1.0 {application} suspended Betamethasone Dipropio satish 0.05 % eCW1 ([facility]) Betamethasone 0.5 MG/ML Topical Cream Betamethasone Di propionate 0.05 % Betamethasone Dipropionate 0.05 % 03/14/2021 12:00:00 AM EDT 1.0 {application} suspended Betamethasone Dipropio satish 0.05 % eCW1 ([facility]) Betamethasone 0.5 MG/ML Topical Cream Betamethasone Di propionate 0.05 % Betamethasone Dipropionate 0.05 % 03/14/2021 12:00:00 AM EDT 1.0 {application} suspended Betamethasone Dipropio satish 0.05 % eCW1 ([facility]) Betamethasone 0.5 MG/ML Topical Cream Betamethasone Di propionate 0.05 % Betamethasone Dipropionate 0.05 % 03/14/2021 12:00:00 AM EDT 1.0 {application} suspended Betamethasone Dipropio satish 0.05 % eCW1 ([facility]) Betamethasone 0.5 MG/ML Topical Cream Betamethasone Di propionate 0.05 % Betamethasone Dipropionate 0.05 % 03/14/2021 12:00:00 AM EDT 1.0 {application} suspended Betamethasone Dipropio satish 0.05 % eCW1 ([facility]) Betamethasone 0.5 MG/ML Topical Cream Betamethasone Di propionate 0.05 % Betamethasone Dipropionate 0.05 % 03/14/2021 12:00:00 AM EDT 1.0 {application} suspended Betamethasone Dipropio satish 0.05 % eCW1 ([facility]) Betamethasone 0.5 MG/ML Topical Cream Betamethasone Di propionate 0.05 % Betamethasone Dipropionate 0.05 % 03/14/2021 12:00:00 AM EDT 1.0 {application} suspended Betamethasone Dipropio satish 0.05 % eCW1 ([facility]) Betamethasone 0.5 MG/ML Topical Cream Betamethasone Di propionate 0.05 % Betamethasone Dipropionate 0.05 % 03/14/2021 12:00:00 AM EDT 1.0 {application} suspended Betamethasone Dipropio satish 0.05 % eCW1 ([facility]) Betamethasone 0.5 MG/ML Topical Cream Betamethasone Di propionate 0.05 % Betamethasone Dipropionate 0.05 % 03/11/2021 12:00:00 AM EDT 1.0 {application} suspended Betamethasone Dipropio satish 0.05 % eCW1 ([facility]) Betamethasone 0.5 MG/ML Topical Cream Betamethasone Di propionate 0.05 % Betamethasone Dipropionate 0.05 % 03/11/2021 12:00:00 AM EDT 1.0 {application} suspended Betamethasone Dipropio satish 0.05 % eCW1 ([facility]) Betamethasone 0.5 MG/ML Topical Cream Betamethasone Di propionate 0.05 % Betamethasone Dipropionate 0.05 % 03/11/2021 12:00:00 AM EDT 1.0 {application} suspended Betamethasone Dipropio satish 0.05 % eCW1 ([facility]) Betamethasone 0.5 MG/ML Topical Cream Betamethasone Di propionate 0.05 % Betamethasone Dipropionate 0.05 % 03/11/2021 12:00:00 AM EDT 1.0 {application} suspended Betamethasone Dipropio satish 0.05 % eCW1 ([facility]) Betamethasone 0.5 MG/ML Topical Cream Betamethasone Di propionate 0.05 % Betamethasone Dipropionate 0.05 % 03/11/2021 12:00:00 AM EDT 1.0 {application} suspended Betamethasone Dipropio satish 0.05 % eCW1 ([facility]) Betamethasone 0.5 MG/ML Topical Cream Betamethasone Di propionate 0.05 % Betamethasone Dipropionate 0.05 % 03/11/2021 12:00:00 AM EDT 1.0 {application} suspended eCW1 ([facility]) Betamethasone 0.5 MG/ML Topical Cream Betamethasone Di propionate 0.05 % Betamethasone Dipropionate 0.05 % 03/11/2021 12:00:00 AM EDT 1.0 {application} suspended Betamethasone Dipropio satish 0.05 % eCW1 ([facility]) Betamethasone 0.5 MG/ML Topical Cream Betamethasone Di propionate 0.05 % Betamethasone Dipropionate 0.05 % 03/11/2021 12:00:00 AM EDT 1.0 {application} suspended Betamethasone Dipropio satish 0.05 % eCW1 ([facility]) Betamethasone 0.5 MG/ML Topical Cream Betamethasone Di propionate 0.05 % Betamethasone Dipropionate 0.05 % 03/11/2021 12:00:00 AM EDT 1.0 {application} active Betamethasone Dipropiona te 0.05 % eCW1 ([facility]) Betamethasone 0.5 MG/ML Topical Cream Betamethasone Di propionate 0.05 % Betamethasone Dipropionate 0.05 % 03/11/2021 12:00:00 AM EDT 1.0 {application} suspended Betamethasone Dipropio satish 0.05 % eCW1 ([facility]) Betamethasone 0.5 MG/ML Topical Cream Betamethasone Di propionate 0.05 % Betamethasone Dipropionate 0.05 % 03/11/2021 12:00:00 AM EDT 1.0 {application} suspended Betamethasone Dipropio satish 0.05 % eCW1 ([facility]) Betamethasone 0.5 MG/ML Topical Cream Betamethasone Di propionate 0.05 % Betamethasone Dipropionate 0.05 % 03/11/2021 12:00:00 AM EDT 1.0 {application} suspended Betamethasone Dipropio satish 0.05 % eCW1 ([facility]) Betamethasone 0.5 MG/ML Topical Cream Betamethasone Di propionate 0.05 % Betamethasone Dipropionate 0.05 % 03/11/2021 12:00:00 AM EDT 1.0 {application} suspended Betamethasone Dipropio satish 0.05 % eCW1 ([facility]) Betamethasone 0.5 MG/ML Topical Cream Betamethasone Di propionate 0.05 % Betamethasone Dipropionate 0.05 % 03/11/2021 12:00:00 AM EDT 1.0 {application} active Betamethasone Dipropiona te 0.05 % eCW1 ([facility]) Betamethasone 0.5 MG/ML Topical Cream Betamethasone Di propionate 0.05 % Betamethasone Dipropionate 0.05 % 03/11/2021 12:00:00 AM EDT 1.0 {application} suspended Betamethasone Dipropio satish 0.05 % eCW1 ([facility]) Betamethasone 0.5 MG/ML Topical Cream Betamethasone Di propionate 0.05 % Betamethasone Dipropionate 0.05 % 03/11/2021 12:00:00 AM EDT 1.0 {application} active Betamethasone Dipropiona te 0.05 % eCW1 ([facility]) Betamethasone 0.5 MG/ML Topical Cream Betamethasone Di propionate 0.05 % Betamethasone Dipropionate 0.05 % 03/11/2021 12:00:00 AM EDT 1.0 {application} suspended Betamethasone Dipropio satish 0.05 % eCW1 ([facility]) Betamethasone 0.5 MG/ML Topical Cream Betamethasone Di propionate 0.05 % Betamethasone Dipropionate 0.05 % 03/11/2021 12:00:00 AM EDT 1.0 {application} suspended Betamethasone Dipropio satish 0.05 % eCW1 ([facility]) Betamethasone 0.5 MG/ML Topical Cream Betamethasone Di propionate 0.05 % Betamethasone Dipropionate 0.05 % 03/11/2021 12:00:00 AM EDT 1.0 {application} suspended Betamethasone Dipropio satish 0.05 % eCW1 ([facility]) Betamethasone 0.5 MG/ML Topical Cream Betamethasone Di propionate 0.05 % Betamethasone Dipropionate 0.05 % 03/11/2021 12:00:00 AM EDT 1.0 {application} suspended Betamethasone Dipropio satish 0.05 % eCW1 ([facility]) Betamethasone 0.5 MG/ML Topical Cream Betamethasone Di propionate 0.05 % Betamethasone Dipropionate 0.05 % 03/11/2021 12:00:00 AM EDT 1.0 {application} suspended Betamethasone Dipropio satish 0.05 % eCW1 ([facility]) 5 % 01/15/2021 12:00:00 AM [...] type / Coverage type Policy ID Covered libertarian ID Covered libertarian's relationship to bunch Policy Bunch Plan Information [employer]AN MCDO [id number] SP [id number] [employer] [id number] Self [id number] [facility] O [id number] S [id number] [facility]) O [id number] S [id number] [employer] COMM[employer]ITY PLAN MCDHMO [id number] SP [id number] [employer] COMM[employer]AN MCDO [id number] SP [id number] ANSI-Medicaid [id number] ANSI-Medicaid [id number] ANSI-Not a Secondary Insurance [id number] ANSI-Medicaid [id number] ANSI-Not a Secondary Insurance [id number] ANSI-Medicaid [id number] ANSI-Medicaid [id number] ANSI-Not a Secondary Insurance [id number] ANSI-Medicaid [id number] ANSI-Not a Secondary Insurance [id number] MEDICAID [id number] SP [id number] ANSI-Not a Secondary Insurance [id number] ANSI-Medicaid [id number] [facility] Community Plan Commercial [id number] Self [facility] Health Maintenance Organization (HMO) [id number] Self MEDICAID M [id number] S [id number] SELF PAY [facility] O [id number] S [id number] [facility] [id number] SP [id number] [place] INN [id number] SP [id number] [facility] P [id number] S [id number] OTHER W[employer]EMPLOYER [id number] SP [id number] [facility] BLUE [id number] SP [id number] [facility] [id number] SP [id number] [facility] [id number] SP [id number] Problems, Conditions, and Diagnoses Code Display Name Description Problem Type Effective Dates Data Source(s) N52.39 [id number] Other post-procedural erectile dysfunctio n Problem 08/10/2021 12:00:00 AM EDT eCW1 ([facility]) 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, acquired, situational, mild Problem 09/29/2 021 12:00:00 AM EDT eCW1 ([facility]) N50.9 Disorder of male genital organ Scrotal lesion Problem 07/13/2021 12:00:00 AM EDT eCW1 ([facility]) L20.9 [id number] Atopic dermatitis and related condition P roblem 03/25/2021 12:00:00 AM EDT eCW1 ([facility]) M19.011 [id number] Primary osteoarthritis, right shoulder Problem 03/25/2021 12:00:00 AM EDT eCW1 ([facility]) M19.012 [id number] Primary osteoarthritis, left shoulder Problem 03/25/2021 12:00:00 AM EDT eCW1 ([facility]) Surgeries/Procedures Procedure Description Date Indications Data Source(s) OFFICE OUTPATIENT VISIT 15 MINUTES 09/13/2021 12:00:00 AM EDT [facility], ) Medication: 2% Lidocaine Dilutent 07/13/2021 12:00:00 AM EDT eCW1 ([facility]) Medication: Bupivacaine 0.25% Dilutent 30ml (Marcaine) 07/13/2021 12:00:00 AM EDT eCW1 ([facility]) Inject/Drain Arthrocentesis Major Joint/Bursa/Ganglion Cyst 05/09/2021 12:00:00 AM EDT [facility] ([facility] ) OFFICE OUTPATIENT NEW 45 MINUTES 05/09/2021 12:00:00 A M EDT [facility] ([facility], ) Results ID Date Data Source [id number] 10/14/2021 10:50:00 AM EST [facility] Name Value Range Interpretation Code Description Data Beatrice rce(s) Supporting Document(s) SARS-CoV-2 (COVID-19) RNA [Presence] in Respiratory specimen by KARIN with probe detection Not Detected [facility] This lab was ordered by [facility] and reported by [facility] ID Date Data Source [id number] 11/26/2020 12:00:00 AM EST [facility] Ryan Coon MD Patient Name: HARPREET VENEGAS [facility] Date of : 1965[place] [address] Date of Exam: 11/26/2020#: Fax: [phone] EXAM: CERVICAL SPINE (2 OR [...] rce(s) Supporting Document(s) ID Date Data Source [id number] 11/26/2020 12:00:00 AM EST [facility] Ryan Coon MD Patient Name: HARPREET VENEGAS [facility] Date of : 1965[place] [address] Date of Exam: 11/26/2020#: Fax: [phone] EXAM: [...] Value Status Description Data Source(s ) Smoking 10/11/2021 12:00:00 AM EST Former Smoker completed Former Smoker eCW1 ([facility]) Smoking 09/06/2021 12:00:00 AM EDT Former Smoker completed Former Smoker eCW1 ([facility]) Smoking 09/06/2021 12:00:00 AM EDT Former Smoker completed Former Smoker eCW1 ([facility]) Smoking 08/10/2021 12:00:00 AM EDT Former Smoker completed Former Smoker eCW1 ([facility]) Smoking 08/10/2021 12:00:00 AM EDT Former Smoker completed Former Smoker eCW1 ([facility]) Smoking 08/09/2021 12:00:00 AM EDT Former Smoker completed Former Smoker eCW1 ([facility]) Smoking 07/13/2021 12:00:00 AM EDT Former Smoker completed Former Smoker eCW1 ([facility]) Smoking 07/13/2021 12:00:00 AM EDT Former Smoker completed Former Smoker eCW1 ([facility]) Smoking 06/10/2021 12:00:00 AM EDT Former Smoker completed Former Smoker eCW1 ([facility]) Smoking 06/10/2021 12:00:00 AM EDT Former Smoker completed Former Smoker eCW1 ([facility]) Smoking 06/10/2021 12:00:00 AM EDT Former Smoker completed Former Smoker eCW1 ([facility]) Smoking 06/07/2021 12:00:00 AM EDT Former Smoker completed Former Smoker eCW1 ([facility]) Smoking 04/28/2021 12:00:00 AM EDT Former Smoker completed Former Smoker eCW1 ([facility]) Smoking 04/25/2021 12:00:00 AM EDT Former Smoker completed Former Smoker eCW1 ([facility]) Smoking 04/25/2021 12:00:00 AM EDT Former Smoker completed Former Smoker eCW1 ([facility]) Smoking 04/25/2021 12:00:00 AM EDT Former Smoker completed Former Smoker eCW1 ([facility]) Smoking 03/30/2021 12:00:00 AM EDT Former Smoker completed Former Smoker eCW1 ([facility]) Smoking 03/30/2021 12:00:00 AM EDT Former Smoker completed Former Smoker eCW1 ([facility]) Smoking 03/11/2021 12:00:00 AM EDT Former Smoker completed Former Smoker eCW1 ([facility]) Smoking 03/11/2021 12:00:00 AM EDT Former Smoker completed Former Smoker eCW1 ([facility]) Smoking 03/11/2021 12:00:00 AM EDT Former Smoker completed Former Smoker eCW1 ([facility]) Smoking 12/24/2020 12:00:00 AM EST Former Smoker completed Former Smoker eCW1 ([facility]) Smoking 12/24/2020 12:00:00 AM EST Former Smoker completed Former Smoker eCW1 ([facility]) Smoking 12/24/2020 12:00:00 AM EST Former Smoker completed Former Smoker eCW1 ([facility]) Smoking 12/24/2020 12:00:00 AM EST Former Smoker completed Former Smoker eCW1 ([facility]) Vital Signs ID Date Data Source UNK Name Value Range Interpretation Code Description Data Source(s) Body weight 168 [lb_av] 168 [lb_av] eCW1 ([facility]) Body weight 76.2 kg 76.2 kg W1 ([facility]) Body height 71 [in_i] 71 [in_i] eCW1 ([facility]) Body mass index (BMI) [Ratio] 23.43 kg/m2 23.43 kg/m2 eCW1 ([facility]) Heart rate 84 /min 84 /min eCW1 ([facility]) Respiratory rate 18 /min 18 /min eCW1 ([facility]) Body temperature 97.5 [degF] 97.5 [degF] eCW1 ( [facility]) Systolic blood pressure 128 mm[Hg] 128 mm[Hg] e CW1 ([facility]) Diastolic blood pressure 70 mm[Hg] 70 mm[Hg] eCW1 ([facility]) Body weight 167.00 [lb_av] 167.00 [lb_av] MEDEN T ([facility] [place] body weight 172 [lb_av] 172 [lb_av] MEDEN T ([facility]) Systolic blood pressure 114 mm[Hg] 114 mm[Hg] M EDENT ([facility]) Diastolic blood pressure 75 mm[Hg] 75 mm[Hg] MEDENT ([facility]) Body temperature 98.2 [degF] 98.2 [degF] MEDENT ([facility]) Body mass index (BMI) [Ratio] 23.3 kg/m2 23.3 k g/m2 [facility] Body weight 75.751 kg 75.751 kg [facility] ([facility]) Body height 71 [in_i] 71 [in_i] [facility] ([facility]) 5'11" Body surface area Derived from formula 1.95 m2 1.95 m2 [facility] ([facility]) Body weight 166 [lb_av] 166 [lb_av] eCW1 ([facility]) Body weight 75.3 kg 75.3 kg eCW1 ([facility]) Body height 71 [in_i] 71 [in_i] eCW1 ([facility]) Body mass index (BMI) [Ratio] 23.15 kg/m2 23.15 kg/m2 W1 ([facility]) Heart rate 78 /min 78 /min eCW1 ([facility]) Respiratory rate 18 /min 18 /min eCW1 ([facility]) Body temperature 98.4 [degF] 98.4 [degF] eCW1 ( [facility]) Systolic blood pressure 132 mm[Hg] 132 mm[Hg] e CW1 ([facility]) Diastolic blood pressure 82 mm[Hg] 82 mm[Hg] eCW1 ([facility]) Body weight 167 [lb_av] 167 [lb_av] eCW1 ([facility]) Diastolic blood pressure 78 mm[Hg] 78 mm[Hg] eCW1 ([facility]) Body weight 75.75 kg 75.75 kg eCW1 ([facility]) Body height 71 [in_i] 71 [in_i] eCW1 ([facility]) Body mass index (BMI) [Ratio] 23.29 kg/m2 23.29 kg/m2 eCW1 ([facility]) Heart rate 75 /min 75 /min eCW1 ([facility]) Respiratory rate 18 /min 18 /min eCW1 ([facility]) Body temperature 96.9 [degF] 96.9 [degF] eCW1 ( [facility]) Systolic blood pressure 142 mm[Hg] 142 mm[Hg] e CW1 ([facility]) Body weight 75.75 kg 75.75 kg eCW1 ([facility]) Body weight 167 [lb_av] 167 [lb_av] eCW1 ([facility]) Heart rate 71 /min 71 /min eCW1 ([facility]) Body height 71 [in_i] 71 [in_i] eCW1 ([facility]) Body mass index (BMI) [Ratio] 23.29 kg/m2 23.29 kg/m2 eCW1 ([facility]) Respiratory rate 18 /min 18 /min eCW1 ([facility]) Body temperature 96.8 [degF] 96.8 [degF] eCW1 ( [facility]) Systolic blood pressure 133 mm[Hg] 133 mm[Hg] e CW1 ([facility]) Diastolic blood pressure 82 mm[Hg] 82 mm[Hg] eCW1 ([facility]) Body weight 162.6 [lb_av] 162.6 [lb_av] eCW1 ([facility]) Body height 71 [in_i] 71 [in_i] eCW1 ([facility]) Body mass index (BMI) [Ratio] 22.68 kg/m2 22.68 kg/m2 eCW1 ([facility]) Heart rate 104 /min 104 /min eCW1 ([facility]) Respiratory rate 18 /min 18 /min eCW1 ([facility]) Body temperature 98.0 [degF] 98.0 [degF] eCW1 ( [facility]) Systolic blood pressure 120 mm[Hg] 120 mm[Hg] e CW1 ([facility]) Diastolic blood pressure 66 mm[Hg] 66 mm[Hg] eCW1 ([facility]) Body temperature 96.8 [degF] 96.8 [degF] MEDENT ([facility], ) Body temperature 96.8 [degF] 96.8 [degF] [facility] Body weight 163.2 [lb_av] 163.2 [lb_av] eCW1 ([facility]) Body height 71 [in_i] 71 [in_i] eCW1 ([facility]) Body mass index (BMI) [Ratio] 22.76 kg/m2 22.76 kg/m2 eCW1 ([facility]) Heart rate 82 /min 82 /min eCW1 ([facility]) Respiratory rate 18 /min 18 /min eCW1 ([facility]) Body temperature 99 [degF] 99 [degF] eCW1 ([facility]) Systolic blood pressure 116 mm[Hg] 116 mm[Hg] e CW1 ([facility]) Diastolic blood pressure 76 mm[Hg] 76 mm[Hg] eCW1 ([facility]) Body weight 166 [lb_av] 166 [lb_av] eCW1 ([facility]) Body height 71 [in_i] 71 [in_i] eCW1 ([facility]) Body mass index (BMI) [Ratio] 23.15 kg/m2 23.15 kg/m2 eCW1 ([facility]) Heart rate 88 /min 88 /min eCW1 ([facility]) Respiratory rate 18 /min 18 /min eCW1 ([facility]) Body temperature 97.8 [degF] 97.8 [degF] eCW1 ( [facility]) Systolic blood pressure 120 mm[Hg] 120 mm[Hg] e CW1 ([facility]) Diastolic blood pressure 86 mm[Hg] 86 mm[Hg] eCW1 ([facility]) Body weight 166.6 [lb_av] 166.6 [lb_av] eCW1 ([facility]) Body height 71 [in_i] 71 [in_i] eCW1 ([facility]) Body mass index (BMI) [Ratio] 23.23 kg/m2 23.23 kg/m2 eCW1 ([facility]) Diastolic blood pressure 72 mm[Hg] 72 mm[Hg] eCW1 ([facility]) Systolic blood pressure 124 mm[Hg] 124 mm[Hg] e CW1 ([facility]) Body weight 179 [lb_av] 179 [lb_av] eCW1 ([facility]) Body height 71 [in_i] 71 [in_i] eCW1 ([facility]) Body mass index (BMI) [Ratio] 24.96 kg/m2 24.96 kg/m2 eCW1 ([facility]) Heart rate 107 /min 107 /min eCW1 ([facility]) Respiratory rate 18 /min 18 /min eCW1 ([facility]) Body temperature 96.8 [degF] 96.8 [degF] eCW1 ( [facility]) Systolic blood pressure 112 mm[Hg] 112 mm[Hg] e CW1 ([facility]) Diastolic blood pressure 70 mm[Hg] 70 mm[Hg] eCW1 ([facility]) Patient Treatment Plan of Care Planned Activity Planned Date Details Description Data Source (s) sildenafil 100 MG Oral Tablet [Viagra] 08/10/2021 12:00:00 AM EDT eCW1 ([facility]) sildenafil 100 MG Oral Tablet [Viagra] 08/10/2021 12:00:00 AM EDT eCW1 ([facility]) meloxicam 15 MG Oral Tablet 03/25/2021 12:00:00 AM EDT eCW1 ([facility]) meloxicam 15 MG Oral Tablet 03/25/2021 12:00:00 AM EDT eCW1 ([facility]) Betamethasone 0.5 MG/ML Topical Cream 03/14/2021 12:00:00 AM EDT eCW1 ([facility]) Betamethasone 0.5 MG/ML Topical Cream 03/14/2021 12:00:00 AM EDT eCW1 ([facility]) Betamethasone 0.5 MG/ML Topical Cream 03/14/2021 12:00:00 AM EDT eCW1 ([facility]) Betamethasone 0.5 MG/ML Topical Cream 03/11/2021 12:00:00 AM EDT eCW1 ([facility]) Betamethasone 0.5 MG/ML Topical Cream 03/11/2021 12:00:00 AM EDT eCW1 ([facility]) Betamethasone 0.5 MG/ML Topical Cream 03/11/2021 12:00:00 AM EDT eCW1 ([facility])
[2021-10-19] MEDS ORDERED: propofoL 200 MG/20 ML VIAL As Ordered ONE (12:37)
--- NOTE | 2021-10-19 12:58 | ROOR ---
Patient Name: Carlos Eduardo Mejia Procedure Date: 10/19/2021 12:36 PM Date of : 1965 Age: 56 Room: [id number] Gender: Male Note Status: Finalized Procedure: Colonoscopy Indications: Generalized abdominal pain Providers: DO Shamir Junior MD: TY BENAVIDES MD Requesting Provider: Medicines: Propofol per Anesthesia Complications: No immediate complications. Procedure: Pre-Anesthesia Assessment: - Prior to the procedure, a History and Physical was performed, and patient medications and allergies were reviewed. The patient is competent. The risks and benefits of the procedure and the sedation options and risks were discussed with the patient. All questions were answered and informed consent was obtained. Patient identification and proposed procedure were verified by the physician, the nurse, the anesthesiologist and the certified hyperbaric technician in the endoscopy suite. Mental Status Examination: alert and oriented. Airway Examination: normal oropharyngeal airway and neck mobility. Respiratory Examination: clear to auscultation. CV Examination: normal. Prophylactic Antibiotics: The patient does not require prophylactic antibiotics. Prior Anticoagulants: The patient has taken no previous anticoagulant or antiplatelet agents. ASA Grade Assessment: II - A patient with mild systemic disease. After reviewing the risks and benefits, the patient was deemed in satisfactory condition to undergo the procedure. The anesthesia plan was to use monitored anesthesia care (MAC). Immediately prior to administration of medications, the patient was re-assessed for adequacy to receive sedatives. The heart rate, respiratory rate, oxygen saturations, blood pressure, adequacy of pulmonary ventilation, and response to care were monitored throughout the procedure. The physical status of the patient was re-assessed after the procedure. The Colonoscope was introduced through the anus and advanced to the cecum, identified by appendiceal orifice and ileocecal valve. The colonoscopy was performed without difficulty. The patient tolerated the procedure well. Findings: Non-bleeding internal hemorrhoids were found during retroflexion. The hemorrhoids were Grade I (internal hemorrhoids that do not prolapse). Impression: - Non-bleeding internal hemorrhoids. - No specimens collected. Recommendation: - Patient has a contact number available for emergencies. The signs and symptoms of potential delayed complications were discussed with the patient. Return to normal activities tomorrow. Written discharge instructions were provided to the patient. - Repeat colonoscopy in 5-10 years for screening purposes. - Return to my office PRN. Procedure Code(s): --- Professional --- 44520, Colonoscopy, flexible; diagnostic, including collection of specimen(s) by brushing or washing, when performed (separate procedure) Diagnosis Code(s): --- Professional --- K64.0, First degree hemorrhoids R10.84, Generalized abdominal pain CPT copyright 2019 [employer]. All rights reserved. The codes documented in this report are preliminary and upon looper fixer review may be revised to meet current compliance requirements. Jerzy Moran DO 10/19/2021 12:58:03 PM Electronically signed by Jerzy Moran DO Number of Addenda: 0 Note Initiated On: 10/19/2021 12:36 PM Estimated Blood Loss: Estimated blood loss was minimal.
[2021-10-19 13:28] VITALS: BP 138/85
== END 2021-10-19 13:29 | disposition home or self-care (01) ==
LOC: M OPP 10:44
PROVIDERS: ATTEND Surgery
DX: R10.84 Generalized abdominal pain (principal); K64.0 First degree hemorrhoids; Z88.1 Allergy status to other antibiotic agents; Z88.5 Allergy status to narcotic agent; Z88.8 Allergy status to other drugs, medicaments and biological substances

== ENCOUNTER → 2022-02-09 | Outpatient (REF) | payer OTHER ==
[~2022-02-09] MED LIST changes: -NS 1,000 ML IV ONE
== END ==
LOC: M SFHCPLAZ 15:33
PROVIDERS: ATTEND Family Medicine
DX: Z13.220 Encounter for screening for lipoid disorders (principal); Z13.1 Encounter for screening for diabetes mellitus; Z13.29 Encounter for screening for other suspected endocrine disorder

== ENCOUNTER → 2022-03-02 | Outpatient (CLI) | payer OTHER ==
[2022-03-02 10:16] LABS: HEMATOCRIT 43.7 % (42.0-52.0); HEMOGLOBIN 14.9 g/dl (13.5-17.5); MEAN CORPUSCULAR HEMOGLOBIN 31.4 pg (27.0-33.0); MEAN CORPUSCULAR HGB CONC 34.1 g/dl (32.0-36.5); PLATELET COUNT, AUTOMATED 165 10^3/uL (150-450); RED BLOOD COUNT 4.75 10^6/uL (4.30-6.10); WHITE BLOOD COUNT 7.4 10^3/uL (4.0-10.0)
[2022-03-02 10:34] LABS: HEMOGLOBIN A1c 5.2 %
[2022-03-02 10:56] LABS: BLOOD UREA NITROGEN 12 MG/DL (7-18); CALCIUM LEVEL 9.5 MG/DL (8.5-10.1); CARBON DIOXIDE LEVEL 30 MEQ/L (21-32); CHLORIDE LEVEL 107 MEQ/L (98-107); CHOLESTEROL LEVEL 236 MG/DL (<200); CHOLESTEROL RISK RATIO 5.021 (<5); CREATININE FOR GFR 0.94 MG/DL (0.70-1.30); GLOMERULAR FILTRATION RATE > 60.0 (>56); GLUCOSE, FASTING 95 MG/DL (70-100); HDL CHOLESTEROL 47 MG/DL (>40); LDL CHOLESTEROL 144 MG/DL (<100); NON-HDL-C 189 MG/DL; POTASSIUM SERUM 4.6 MEQ/L (3.5-5.1); SODIUM LEVEL 140 MEQ/L (136-145); TRIGLYCERIDES LEVEL 224 MG/DL (<150)
== END ==
LOC: M LAB 09:39
PROVIDERS: ATTEND Student in an Organized Health Care Education/Training Program
DX: Z13.220 Encounter for screening for lipoid disorders (principal)

== ENCOUNTER → 2022-04-29 | Outpatient (REF) | payer OTHER | LOC: M LAB REF 11:34 | PROVIDERS: ATTEND Physician Assistant Medical | DX: R50.9 Fever, unspecified (principal); R05.9 Cough, unspecified; R11.2 Nausea with vomiting, unspecified; R53.83 Other fatigue ==

== ENCOUNTER → 2023-02-20 | Outpatient (CLI) | payer OTHER, MEDICARE ==
[2023-02-20 10:55] LABS: CHOLESTEROL RISK RATIO 4.39 (<5); HDL CHOLESTEROL 51.4 MG/DL (>40); LDL CHOLESTEROL 149.8 MG/DL (<100); NON-HDL-C 174.6 MG/DL
== END ==
LOC: M WUC 08:23
PROVIDERS: ATTEND Student in an Organized Health Care Education/Training Program
DX: E78.2 Mixed hyperlipidemia (principal)

== ENCOUNTER → 2023-02-28 | Outpatient (CLI) | payer OTHER | LOC: M CARPUL 14:50 | PROVIDERS: ATTEND Student in an Organized Health Care Education/Training Program | DX: R06.09 Other forms of dyspnea (principal) ==

== ENCOUNTER → 2023-03-27 | Outpatient (CLI) | payer OTHER | LOC: M RAD 10:56 | PROVIDERS: ATTEND Student in an Organized Health Care Education/Training Program | DX: R41.3 Other amnesia (principal) ==

== ENCOUNTER → 2023-07-02 | Outpatient (CLI) | payer MEDICARE ==
[2023-07-02 10:48] LABS: BLOOD UREA NITROGEN 9 MG/DL (9-23); CALCIUM LEVEL 9.4 MG/DL (8.5-10.1); CARBON DIOXIDE LEVEL 30 MMOL/L (20-31); CHLORIDE LEVEL 104 MMOL/L (98-107); CREATININE FOR GFR 0.95 MG/DL (0.70-1.30); GLOMERULAR FILTRATION RATE > 60.0 (>56); GLUCOSE, FASTING 87 MG/DL (60-100); POTASSIUM SERUM 4.2 MMOL/L (3.5-5.1); SODIUM LEVEL 141 MMOL/L (136-145)
== END ==
LOC: M RAD 09:44
PROVIDERS: ATTEND Student in an Organized Health Care Education/Training Program
DX: M25.551 Pain in right hip (principal)

== ENCOUNTER → 2023-07-19 | Outpatient (CLI) | payer MEDICARE, OTHER | LOC: M RAD 06:29 | PROVIDERS: ATTEND Student in an Organized Health Care Education/Training Program | DX: Z87.891 Personal history of nicotine dependence (principal) ==

== ENCOUNTER → 2024-06-03 | Outpatient (CLI) | payer MEDICARE, OTHER ==
[2024-06-03 12:09] LABS: HEMOGLOBIN A1c 5.1 % (4.0-6.0)
[2024-06-03 12:26] LABS: PSA SCREENING 0.78 NG/ML (< 4.00)
[2024-06-03 12:27] LABS: ALBUMIN 3.9 G/DL (3.2-5.2); ALKALINE PHOSPHATASE 94 U/L (46-116); ALT/SGPT 24 U/L (7.0-40); AST/SGOT 13 U/L (<34); BILIRUBIN,DIRECT 0.2 MG/DL (<0.4); BILIRUBIN,TOTAL 0.7 MG/DL (0.3-1.2); BLOOD UREA NITROGEN 12 MG/DL (9-23); CALCIUM LEVEL 9.4 MG/DL (8.5-10.1); CARBON DIOXIDE LEVEL 28 MMOL/L (20-31); CHLORIDE LEVEL 106 MMOL/L (98-107); CHOLESTEROL LEVEL 198 MG/DL (<200); CHOLESTEROL RISK RATIO 4.33 (<5); CREATININE FOR GFR 0.87 MG/DL (0.70-1.30); GLOMERULAR FILTRATION RATE > 60.0 (>56); GLUCOSE, FASTING 136 MG/DL (60-100); HDL CHOLESTEROL 45.7 MG/DL (>40); LDL CHOLESTEROL 130.9 MG/DL (<100); NON-HDL-C 152.3 MG/DL; PHOSPHORUS LEVEL 2.9 MG/DL (2.5-4.9); POTASSIUM SERUM 4.2 MMOL/L (3.5-5.1); SODIUM LEVEL 139 MMOL/L (136-145); TOTAL PROTEIN 6.5 G/DL (5.7-8.2); TRIGLYCERIDES LEVEL 107 MG/DL (<150)
== END ==
LOC: M WUC 08:49
PROVIDERS: ATTEND Student in an Organized Health Care Education/Training Program
DX: Z00.00 Encounter for general adult medical examination without abnormal findings (principal); E78.00 Pure hypercholesterolemia, unspecified; Z12.5 Encounter for screening for malignant neoplasm of prostate
CPT/HCPCS: 36415; 80061; 80069; 80076; 83036; G0103

== ENCOUNTER → 2024-09-11 | Outpatient (CLI) | payer MEDICARE | LOC: M RAD 16:30 | DX: F17.210 Nicotine dependence, cigarettes, uncomplicated (principal) ==

== ENCOUNTER → 2024-09-15 | Outpatient (CLI) | payer MEDICARE | LOC: M RAD 10:14 | DX: F17.210 Nicotine dependence, cigarettes, uncomplicated (principal) ==

== ENCOUNTER → 2024-09-16 | Outpatient (CLI) | payer MEDICARE | LOC: M RAD 08:20 | DX: F17.210 Nicotine dependence, cigarettes, uncomplicated (principal) ==

== ENCOUNTER → 2024-11-21 | Outpatient (CLI) | payer MEDICARE | LOC: M RAD 09:39 | DX: Z12.2 Encounter for screening for malignant neoplasm of respiratory organs (principal); F17.210 Nicotine dependence, cigarettes, uncomplicated ==

== ENCOUNTER → 2025-03-13 | Outpatient (REF) | payer MEDICARE | LOC: M SFHCPLAZ 15:06 | PROVIDERS: ATTEND Family Medicine | DX: Z53.21 Procedure and treatment not carried out due to patient leaving prior to being seen by health care provider (principal); R35.0 Frequency of micturition ==

== ENCOUNTER → 2025-03-16 | Outpatient (CLI) | payer MEDICARE ==
[2025-03-16 12:48] LABS: APPEARANCE, URINE HAZY (CLEAR); BACTERIA, URINE AUTO NEGATIVE (NEGATIVE); BILIRUBIN, URINE AUTO NEGATIVE (NEGATIVE); BLOOD, URINE BLOOD NEGATIVE (NEGATIVE); COLOR, URINE YELLOW (YELLOW); GLUCOSE, URINE (UA) AUTO NEGATIVE (NEGATIVE); KETONE, URINE AUTO NEGATIVE (NEGATIVE); LEUKOCYTE ESTERASE, URINE AUTO NEGATIVE (NEGATIVE); MUCUS, URINE SMALL (NEGATIVE); NITRITE, URINE AUTO NEGATIVE (NEGATIVE); PROTEIN, URINE AUTO NEGATIVE (NEGATIVE); RBC, URINE AUTO 0 /HPF (0-3); SPECIFIC GRAVITY URINE AUTO 1.013 (1.002-1.035); SQUAMOUS EPITHELIAL CELL UR AU 0 /HPF (0-6); UROBILINOGEN, URINE AUTO 0.2 mg/dL (0.0-2.0); WBC, URINE AUTO 1 /HPF (0-3)
[2025-03-16 12:51] LABS: BLOOD UREA NITROGEN 12 MG/DL (9-23); CALCIUM LEVEL 9.2 MG/DL (8.3-10.6); CARBON DIOXIDE LEVEL 28 MMOL/L (20-31); CHLORIDE LEVEL 106 MMOL/L (98-107); CREATININE FOR GFR 0.83 MG/DL (0.70-1.30); GLOMERULAR FILTRATION RATE > 90.0 (>49); GLUCOSE, FASTING 124 MG/DL (74-106); POTASSIUM SERUM 4.3 MMOL/L (3.5-5.1); SODIUM LEVEL 142 MMOL/L (136-145)
[2025-03-16 12:52] LABS: FOLATE 18.52 NG/ML (>5.4); THYROID STIMULATING HORMONE 2.122 uIU/ML (0.55-4.78)
[2025-03-16 12:53] LABS: HEMATOCRIT 42.9 % (42.0-52.0); HEMOGLOBIN 14.6 g/dl (13.5-17.5); MEAN CORPUSCULAR HEMOGLOBIN 31.5 pg (27.0-33.0); MEAN CORPUSCULAR VOLUME 92.7 fl (80.0-96.0); PLATELET COUNT, AUTOMATED 135 10^3/uL (150-450); RED BLOOD COUNT 4.63 10^6/uL (4.30-6.10); VITAMIN B12 LEVEL 590 PG/ML (211-911); WHITE BLOOD COUNT 6.6 10^3/uL (4.0-10.0)
[2025-03-18 06:57] LABS: COPPER PLASMA 101 mcg/dL (70-175); ZINC PLASMA 89 mcg/dL (60-130)
[2025-03-18 12:43] LABS: MERCURY LEVEL < 4 mcg/L (<=10)
== END ==
LOC: M WUC 09:31
PROVIDERS: ATTEND Student in an Organized Health Care Education/Training Program
DX: R43.2 Parageusia (principal); E07.9 Disorder of thyroid, unspecified; R35.0 Frequency of micturition; M25.531 Pain in right wrist

== ENCOUNTER → 2025-03-16 | Outpatient (CLI) | payer MEDICARE | LOC: M RAD 10:21 | PROVIDERS: ATTEND Student in an Organized Health Care Education/Training Program | DX: M25.531 Pain in right wrist (principal) ==

== ENCOUNTER → 2025-05-27 | Outpatient (CLI) | payer MEDICARE | LOC: M RAD 12:27 | DX: R39.9 Unspecified symptoms and signs involving the genitourinary system (principal) ==

== ENCOUNTER → 2025-06-17 | Outpatient (CLI) | payer MEDICARE ==
[~2025-06-17] MED LIST changes: +PROZ10CA11 PO; -PROZ10CA7 PO
== END ==
LOC: M WUC 08:27
DX: R39.9 Unspecified symptoms and signs involving the genitourinary system (principal); Z12.5 Encounter for screening for malignant neoplasm of prostate
CPT/HCPCS: 36415; G0103

== ENCOUNTER 2025-10-06 03:46 | Emergency (ER) | payer MEDICAID, MEDICARE ==
[~2025-10-06] VITALS: Ht 180.3 cm; Wt 71.8 kg
[2025-10-06 04:27] LABS: BASO # 0.0 10^3/uL (0.0-0.2); BASO % 0.3 % (0.0-1.0); EOS # 0.0 10^3/uL (0.0-0.5); EOS % 0.4 % (0.0-3.0); LYMPH # 1.5 10^3/uL (1.5-5.0); LYMPH % 20.0 % (24.0-44.0); MONO # 0.5 10^3/uL (0.0-0.8); MONO % 6.6 % (2.0-8.0); NEUTROPHILS # 5.4 10^3/uL (1.5-8.5); NEUTROPHILS % 72.3 % (36.0-66.0); PLATELET COUNT, AUTOMATED 128 10^3/uL (150-450)
[2025-10-06 04:49] LABS: ALT/SGPT 36 U/L (7.0-40); AST/SGOT 27 U/L (<34); CALCIUM LEVEL 9.0 MG/DL (8.3-10.6); CARBON DIOXIDE LEVEL 28 MMOL/L (20-31); CHLORIDE LEVEL 103 MMOL/L (98-107); CREATININE FOR GFR 0.90 MG/DL (0.70-1.30); GLOMERULAR FILTRATION RATE > 90.0 (>49); POTASSIUM SERUM 4.6 MMOL/L (3.5-5.1); SODIUM LEVEL 140 MMOL/L (136-145)
[2025-10-06] MEDS: ONDANSETRON 4MG/2ML VIAL IV ONE (05:23)
[2025-10-06] MEDS ORDERED: ONDA-282 PO (06:05)
[2025-10-06] MEDS: KETOROLAC 30 MG/ML 1 ML VIAL IV ONE (06:18)
[2025-10-06] MEDS: NS 500 ML IV ONE (06:18)
[2025-10-06 07:31] VITALS: BP 102/62; TEMP 98.3; O2SAT 94
== END 2025-10-06 07:35 | disposition home or self-care (01) ==
LOC: M ED 03:46
DX: J09.X2 Influenza due to identified novel influenza A virus with other respiratory manifestations (principal); Z88.1 Allergy status to other antibiotic agents; Z88.5 Allergy status to narcotic agent; Z88.6 Allergy status to analgesic agent; Z88.8 Allergy status to other drugs, medicaments and biological substances; Z79.899 Other long term (current) drug therapy
CPT/HCPCS: 80048; 80076; 83690; 85025; 87486; 87581; 87633; 87798; 96374; 96375; 99284; J1885; J2405

== ENCOUNTER → 2025-10-14 | Outpatient (CLI) | payer MEDICARE ==
[~2025-10-14] MED LIST changes: +ONDA-282 PO
[2025-10-14 13:58] LABS: BASO # 0.0 10^3/uL (0.0-0.2); BASO % 0.5 % (0.0-1.0); EOS # 0.1 10^3/uL (0.0-0.5); EOS % 1.5 % (0.0-3.0); LYMPH # 2.4 10^3/uL (1.5-5.0); LYMPH % 29.8 % (24.0-44.0); MONO # 0.7 10^3/uL (0.0-0.8); MONO % 8.2 % (2.0-8.0); NEUTROPHILS # 4.6 10^3/uL (1.5-8.5); NEUTROPHILS % 56.6 % (36.0-66.0); PLATELET COUNT, AUTOMATED 189 10^3/uL (150-450)
[2025-10-14 14:02] LABS: C REACTIVE PROTEIN QUANTITATIV < 0.50 MG/DL (<1.0)
[2025-10-14 14:03] LABS: ALT/SGPT 36 U/L (7.0-40); AST/SGOT 25 U/L (<34); CALCIUM LEVEL 8.9 MG/DL (8.3-10.6); CARBON DIOXIDE LEVEL 30 MMOL/L (20-31); CHLORIDE LEVEL 102 MMOL/L (98-107); CREATININE FOR GFR 0.76 MG/DL (0.70-1.30); GLOMERULAR FILTRATION RATE > 90.0 (>49); POTASSIUM SERUM 4.1 MMOL/L (3.5-5.1); SODIUM LEVEL 141 MMOL/L (136-145)
[2025-10-14 14:05] LABS: TOTAL 25(OH) VITAMIN D 32.0 NG/ML (20.0-100.0)
[2025-10-14 14:20] LABS: INR 0.93
[2025-10-14 14:24] LABS: APPEARANCE, URINE HAZY (CLEAR); BACTERIA, URINE AUTO NEGATIVE (NEGATIVE); BILIRUBIN, URINE AUTO NEGATIVE (NEGATIVE); BLOOD, URINE BLOOD NEGATIVE (NEGATIVE); GLUCOSE, URINE (UA) AUTO NEGATIVE (NEGATIVE); KETONE, URINE AUTO NEGATIVE (NEGATIVE); LEUKOCYTE ESTERASE, URINE AUTO NEGATIVE (NEGATIVE); MUCUS, URINE SMALL (NEGATIVE); NITRITE, URINE AUTO NEGATIVE (NEGATIVE); PROTEIN, URINE AUTO NEGATIVE (NEGATIVE); RBC, URINE AUTO 0 /HPF (0-3); SPECIFIC GRAVITY URINE AUTO 1.016 (1.002-1.035); SQUAMOUS EPITHELIAL CELL UR AU 0 /HPF (0-6); UROBILINOGEN, URINE AUTO 0.2 mg/dL (0.0-2.0); WBC, URINE AUTO 0 /HPF (0-3)
== END ==
LOC: M WUC 11:26
PROVIDERS: ATTEND Orthopaedic Surgery
DX: M19.011 Primary osteoarthritis, right shoulder (principal); Z79.01 Long term (current) use of anticoagulants

== ENCOUNTER → 2025-11-09 | Outpatient (CLI) | payer MEDICARE ==
[2025-11-09 09:04] LABS: APPEARANCE, URINE CLEAR (CLEAR); BACTERIA, URINE AUTO NEGATIVE (NEGATIVE); BILIRUBIN, URINE AUTO NEGATIVE (NEGATIVE); BLOOD, URINE BLOOD NEGATIVE (NEGATIVE); GLUCOSE, URINE (UA) AUTO NEGATIVE (NEGATIVE); KETONE, URINE AUTO NEGATIVE (NEGATIVE); LEUKOCYTE ESTERASE, URINE AUTO NEGATIVE (NEGATIVE); NITRITE, URINE AUTO NEGATIVE (NEGATIVE); PROTEIN, URINE AUTO NEGATIVE (NEGATIVE); RBC, URINE AUTO 0 /HPF (0-3); SPECIFIC GRAVITY URINE AUTO 1.014 (1.002-1.035); SQUAMOUS EPITHELIAL CELL UR AU 0 /HPF (0-6); UROBILINOGEN, URINE AUTO 0.2 mg/dL (0.0-2.0); WBC, URINE AUTO 0 /HPF (0-3)
[2025-11-09 09:09] LABS: BASO # 0.1 10^3/uL (0.0-0.2); BASO % 0.6 % (0.0-1.0); EOS # 0.2 10^3/uL (0.0-0.5); EOS % 2.0 % (0.0-3.0); LYMPH # 2.6 10^3/uL (1.5-5.0); LYMPH % 33.2 % (24.0-44.0); MONO # 0.7 10^3/uL (0.0-0.8); MONO % 9.3 % (2.0-8.0); NEUTROPHILS # 4.3 10^3/uL (1.5-8.5); NEUTROPHILS % 54.3 % (36.0-66.0); PLATELET COUNT, AUTOMATED 149 10^3/uL (150-450)
[2025-11-09 09:32] LABS: INR 0.92
[2025-11-09 09:33] LABS: ALT/SGPT 40 U/L (7.0-40); AST/SGOT 28 U/L (<34); CALCIUM LEVEL 9.1 MG/DL (8.3-10.6); CARBON DIOXIDE LEVEL 28 MMOL/L (20-31); CHLORIDE LEVEL 104 MMOL/L (98-107); CREATININE FOR GFR 0.83 MG/DL (0.70-1.30); GLOMERULAR FILTRATION RATE > 90.0 (>49); POTASSIUM SERUM 4.4 MMOL/L (3.5-5.1); SODIUM LEVEL 139 MMOL/L (136-145)
[2025-11-09 09:35] LABS: TOTAL 25(OH) VITAMIN D 70.6 NG/ML (20.0-100.0)
== END ==
LOC: M EKG 08:05
PROVIDERS: ATTEND Orthopaedic Surgery
DX: M19.011 Primary osteoarthritis, right shoulder (principal); Z79.899 Other long term (current) drug therapy